=== PATIENT | male | born 1940 | race Caucasian/White ===

== ENCOUNTER → 2016-11-28 | Outpatient (CLI) | payer MEDICARE, OTHER ==
--- NOTE | 2016-11-28 11:40 | ECHOF ---
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 This was a technically good study. The left ventricular size is normal. There is borderline concentric left ventricular hypertrophy. Overall left ventricular systolic function is normal with, an EF between 60 - 65 %. The right ventricle is normal in size. The left atrium is normal in size. Normal LA size by volume 22+/-6 ml/m2. The right atrium is normal in size. The aortic valve is bicuspid. There is mild aortic valve sclerosis. There is mild aortic regurgitation. Peak/mean gradient across the Aortic Valve is 11.18mmHg / 5.21mmHg. Normal appearing mitral valve. No mitral regurgitation. Mild tricuspid regurgitation present. Right ventricular systolic pressure is normal at < 35 mmHg. Trace/mild (physiologic) pulmonic regurgitation. 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 The inferior vena cava is mildly dilated. There is no pericardial effusion. CONCLUSIONS -------- 1. Sinus rhythm. 2. There is mild aortic valve sclerosis. 3. There is mild aortic regurgitation. 4. Peak/mean gradient across the Aortic Valve is 11.18mmHg / 5.21mmHg. 5. Normal appearing mitral valve. 6. Mild tricuspid regurgitation present. 7. Right ventricular systolic pressure is normal at < 35 mmHg. 8. Trace/mild (physiologic) pulmonic regurgitation. 9. 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 10. The inferior vena cava is mildly dilated. 11. There is no pericardial effusion. 12. This was a technically good study. 13. The left ventricular size is normal. 14. There is borderline concentric left ventricular hypertrophy. 15. Overall left ventricular systolic function is normal with, an EF between 60 - 65 %. 16. The right ventricle is normal in size. 17. Normal LA size by volume 22+/-6 ml/m2. 18. The right atrium is normal in size. 19. The aortic valve is bicuspid. AREA FIELD WORKER: Malgorzata Guzman RDCS
== END | disposition home or self-care (01) ==
LOC: RADECHMAIN 08:01
PROVIDERS: ATTEND Family Medicine
DX: Q23.1 Congenital insufficiency of aortic valve (principal); I77.810 Thoracic aortic ectasia
CPT/HCPCS: 93306

== ENCOUNTER 2017-03-20 05:59 | Day surgery (SDC) | payer MEDICARE, OTHER ==
[2017-03-14 10:24] VITALS: BMI 25.7
--- NOTE | 2017-03-19 13:31 | HP ---
DATE OF ADMISSION: Surgery is 03/20/2017. Clarence Smith is a 76-year-old patient seen with progressive right shoulder pain. After having treatment options discussed, he elected to proceed with right shoulder arthroscopy. Consent was obtained. Clearance was provided by Dr. Brennan. Past medical history is noncontributory. Past surgical history is herniorrhaphy, knee arthroscopy. DAILY MEDICATIONS: Multivitamins as needed. ALLERGIES: None reported. SOCIAL HISTORY: Patient denies current tobacco use. PHYSICAL EVALUATION OF RIGHT SHOULDER: Flexion 150 degrees, abduction ( ) degrees, external rotation is 50 degrees with some weakness. There is tenderness along the anterolateral acromion and rotator cuff insertion site. Impingement sign is positive at 90 degrees. Distal neurovascular exam is intact. Radiographs of the right shoulder revealed a type II anterior acromion, evidence for acromioclavicular joint osteoarthritis and cystic changes of the greater tuberosity. An MRI of the right shoulder revealed a partial rotator cuff tear, labral tear and biceps tendinitis. IMPRESSION: Right shoulder impingement with partial rotator cuff tear, labral tear and biceps tendinitis. PLAN: Right shoulder arthroscopy with subacromial decompression, possible arthroscopic rotator cuff repair, possible biceps tendon release and debridement.
[~2017-03-20 05:59] MED LIST: FAMOTIDINE 20 MG/2 ML VIAL IV PRN; HYDROmorphone 1 MG/ML 1 ML SYRINGE IVP PRN; LACTATED RINGERS 1,000 ML IV SCH; LIDOCAINE 1% 20 ML VIAL (10MG/ML) FOR IV START INTRADERMA PRN; MIDAZOLAM 2 MG/2 ML VIAL IV PRN; ONDANSETRON 4 MG/2 ML VIAL IVP PRN; ceFAZolin 2 GM in SODIUM CHLORIDE 0.9% 100 ML IVPB ONE
[2017-03-20] MEDS ORDERED: SUCCINYLCHOLINE CHLORIDE 100 MG/5 ML SYR IV ONE (07:30)
[2017-03-20] MEDS ORDERED: ePHEDrine 50 MG/ML 1 ML AMP ONE (07:30)
[2017-03-20] MEDS ORDERED: PROPOFOL 10 MG/ML 20 ML VIAL IV ONE (07:30)
[2017-03-20] MEDS ORDERED: LIDOCAINE 2%-EPI 1:100,000 20 ML VIAL ONE (07:30)
[2017-03-20] MEDS ORDERED: LIDOCAINE 1% INJ 10MG/ML (20 ML MDV) ONE (07:30)
[2017-03-20] MEDS ORDERED: ROPIVACAINE 5 MG/ML 30 ML VIAL ONE (07:30)
[2017-03-20 09:03] VITALS: TEMP 97.2
--- NOTE | 2017-03-20 09:10 | P.OP ---
Date of Procedure: 03/20/17 Preoperative Diagnosis: Right shoulder impingement Postoperative Diagnosis: 1. Right shoulder impingement 2. Right shoulder superficial partial rotator cuff tear 3. Right shoulder acromioclavicular joint osteoarthritis 4. Right shoulder partial biceps tendon tear 5. Right shoulder superficial labral tear Procedure(s) Performed: 1. Right shoulder arthroscopic subacromial decompression 2. Right shoulder arthroscopic debridement partial rotator cuff tear 3. Right shoulder arthroscopic Kirt procedure 4. Right shoulder arthroscopic biceps tenotomy 5. Right shoulder arthroscopic debridement labral tear Implants: none Anesthesia: GETA, regional (Shoulder block) Surgeon: Sudheer Shine Egg Caser #1: Ming Huerta Estimated Blood Loss (ml): 20 Pathology: none sent Condition: stable Disposition: PACU Indications for Procedure: 76-year-old patient seen with progressive right shoulder pain. After having treatment options discussed, he elected to proceed with right shoulder arthroscopy. Operative Findings: See description of procedure Description of Procedure: Patient underwent a shoulder block by department of anesthesia. The patient was then taken to the operative suite. The patient underwent a general anesthetic by the department of anesthesia. The patient was placed into a lateral position and secured. There was appropriate padding of the bony prominence. Right shoulder was then prepped and draped in normal sterile orthopedic fashion. We placed the extremity in 10 pounds of longitudinal traction. A posterior incision was now made for a posterior working portal site. The trocar and cannula were inserted into the glenohumeral joint. Arthroscopy was initiated. Spinal needle was now inserted anteriorly, to ascertain the anterior working portal site. An incision was now made in that area, a trocar was inserted followed by a probe. There was some superficial tearing of the superior and anterior labrum. There were grade 2 chondromalacia changes of the humeral head and grade 2/3 chondral malacia changes of the glenoid fossa. Partial tearing long head biceps tendon. The posterior and inferior labrum were intact. There were no loose bodies. I debrided the labrum down to stable tissue. I performed an arthroscopic biceps tenotomy. The residual labrum was probed and found to be stable. At this point instruments removed from glenohumeral joint. Utilizing the posterior working portal site, the trocar and cannula were inserted into the subacromial space. Arthroscopy initiated. I made an incision 2 fingerbreadths lateral to the acromion. I introduced my trocar followed by my ArthroCare ablator. I now began ablating thick subacromial bursal tissue, which exposed the undersurface of the anterior acromion. This was diminished subacromial space. There was a very prominent anterior acromion. A motorized bur was introduced and a subacromial decompression was performed. I also excised some osteophytes off the inferior aspect of the distal clavicle. The AC joint was visualized and noted to be fairly arthritic. Our motorized bur was introduced in the anterior portal site and a Kirt procedure was performed without difficulty, decompressing the AC joint nicely. I turned my attention to the rotator cuff. There was some superficial tearing of the distal supraspinatus present. Utilized the motorized bur and debrided that down to stable tendon tissue. The residual area was probed and found to be stable. I did not appreciate any perforations. At this point I injected 1 mL of Allogen intra-articular and at the debrided rotator cuff site. Instruments now removed from the portal sites. All portal sites were approximated with nylon suture. Sterile dressings were applied followed by a shoulder immobilizer. Colin VANG assisted with the procedure. The patient was awakened, transferred to a bed, and taken to recovery in stable condition.
[2017-03-20 09:47] VITALS: RESP 18
[2017-03-20 10:34] VITALS: BP 126/77; PULSE 61
== END 2017-03-20 10:45 | disposition home or self-care (01) ==
LOC: OR 05:59
PROVIDERS: ATTEND Orthopaedic Surgery
DX: S43.421A Sprain of right rotator cuff capsule, initial encounter (principal); S46.111A Strain of muscle, fascia and tendon of long head of biceps, right arm, initial encounter; M19.011 Primary osteoarthritis, right shoulder; S43.491A Other sprain of right shoulder joint, initial encounter; M75.21 Bicipital tendinitis, right shoulder; M94.211 Chondromalacia, right shoulder; M25.711 Osteophyte, right shoulder; M75.41 Impingement syndrome of right shoulder; Q23.1 Congenital insufficiency of aortic valve; Z87.891 Personal history of nicotine dependence; K21.9 Gastro-esophageal reflux disease without esophagitis; Z79.899 Other long term (current) drug therapy; Z79.891 Long term (current) use of opiate analgesic; Z85.828 Personal history of other malignant neoplasm of skin; X58.XXXA Exposure to other specified factors, initial encounter
CPT/HCPCS: 64415; 29827; 29826; 29824; 23405; C1765; J2250; J0690; J2405; J2001; J2795; J0330; J2704

== ENCOUNTER → 2018-08-13 | Outpatient (CLI) | payer MEDICARE, OTHER ==
--- NOTE | 2018-08-13 14:58 | US ---
EXAMINATION TYPE: US venous doppler duplex LE LT DATE OF EXAM: 08/13/2018 2:50 PM COMPARISON: NONE CLINICAL HISTORY: M79.662 PAIN IN LT LOWER LEG. S/P lt knee replacement x 1 week ago. Baby aspirin. No hx of blood clots. SIDE PERFORMED: Left TECHNIQUE: The lower extremity deep venous system is examined utilizing real time linear array sonog marichuy with graded compression, doppler sonography and color-flow sonography. VESSELS IMAGED: External Iliac Vein (EIV) Common Femoral Vein Deep Femoral Vein Greater Saphenous Vein * Femoral Vein Popliteal Vein Small Saphenous Vein * Proximal Calf Veins (* superficial vessels) There is normal flow, compressibility, vascular waveforms. Left Leg: Negative for DVT IMPRESSION: No evident deep venous thrombosis at or above the left knee, follow-up as indicated.
== END | disposition home or self-care (01) ==
LOC: RADUSWWP 14:24
PROVIDERS: ATTEND Orthopaedic Surgery Adult Reconstructive Orthopaedic Surgery
DX: M79.662 Pain in left lower leg (principal)

== ENCOUNTER → 2018-12-18 | Outpatient (CLI) | payer MEDICARE, OTHER ==
--- NOTE | 2018-12-18 16:51 | ECHOF ---
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 This was a technically good study. The left ventricular size is normal. Left ventricular wall thickness is normal. Overall left vent ricular systolic function is normal with, an EF between 55 - 60 %. The right ventricle is normal in size. The left atrium is normal in size. The right atrium is normal in size. There is mild aortic regurgitation. Probably bicuspid aortic valve. There is trace mitral regurgitation. Trace tricuspid regurgitation present. The right ventricular systolic pressure, as measured by Dopp ler, is 22.44mmHg. Pulmonic valve appears structurally normal. 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 Normal inferior vena cava with normal inspiratory collapse consistent with estimated right atrial pre ssure of 5 mmHg. The pericardium is normal. CONCLUSIONS -------- 1. Sinus rhythm. 2. This was a technically good study. 3. The left ventricular size is normal. 4. Left ventricular wall thickness is normal. 5. Overall left ventricular systolic function is normal with, an EF between 55 - 60 %. 6. The right ventricle is normal in size. 7. The left atrium is normal in size. 8. The right atrium is normal in size. 9. There is mild aortic regurgitation. 10. Probably bicuspid aortic valve. 11. There is trace mitral regurgitation. 12. Trace tricuspid regurgitation present. 13. The right ventricular systolic pressure, as measured by Doppler, is 22.44mmHg. 14. Pulmonic valve appears structurally normal. 15. 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 16. Normal inferior vena cava with normal inspiratory collapse consistent with estimated right atrial pressure of 5 mmHg. 17. The pericardium is normal. NUT SHELLER MACHINE OPERATOR: Arlyn Groves RDCS
== END | disposition home or self-care (01) ==
LOC: RADECHMAIN 13:07
PROVIDERS: ATTEND Family Medicine
DX: Q23.1 Congenital insufficiency of aortic valve (principal)
CPT/HCPCS: 93306

== ENCOUNTER → 2019-08-05 | Outpatient (CLI) | payer MEDICARE, OTHER ==
--- NOTE | 2019-08-05 16:07 | US ---
EXAMINATION TYPE: US gallbladder DATE OF EXAM: 08/05/2019 COMPARISON: NONE CLINICAL HISTORY: K80.20 GALLSTONES. RUQ Pain. EXAM MEASUREMENTS: Liver Length: 15.6 cm Gallbladder Wall: .2 cm CBD: .5 cm Right Kidney: 9.7 x 4.6 x 4.6 cm Pancreas: Obscured by bowel gas Liver: wnl Gallbladder: Limited due to intercoastal scanning not well visualized. Evidence for sonographic Loredo's sign: No CBD: wnl Right Kidney: wnl IMPRESSION: 1. No suspicious abnormality right upper quadrant. Exam is limited due to the [id number].
== END | disposition home or self-care (01) ==
LOC: RADUSWWP 13:30
PROVIDERS: ATTEND Surgery Plastic and Reconstructive Surgery
DX: K80.20 Calculus of gallbladder without cholecystitis without obstruction (principal)
CPT/HCPCS: 76705

== ENCOUNTER → 2019-09-07 | Outpatient (CLI) | payer MEDICARE, OTHER ==
[2019-09-07 07:37] LABS: African American GFR (CKD) >90 (>60 ml/min/1.73 sqM); Blood Urea Nitrogen 19 mg/dL (9-20)
--- NOTE | 2019-09-07 09:44 | CT ---
EXAMINATION TYPE: CT abdomen pelvis w con DATE OF EXAM: 09/07/2019 COMPARISON: Gallbladder ultrasound dated 08/05/2019. CT abdomen pelvis dated 09/14/2014 HISTORY: epigastric to periumbilical pain CT DLP: 583.1 mGycm Automated exposure control for dose reduction was used. TECHNIQUE: Helical acquisition of images was performed from the lung bases through the pelvis. CONTRAST: Performed with Oral Contrast and with IV Contrast, patient injected with 100 mL of Isovue 300. FINDINGS: LUNG BASES: Bibasilar subsegmental dependent atelectasis and multifocal pleural parenchymal scarring. Slight nodular aspect of the left pleural parenchymal scarring and series 4 image 12. This has sligh tly enlarged in the interim in comparison to exam of 09/14/2014 where this measured 4 mm. LIVER/GB: Hepatic parenchyma is diffusely hypoattenuated in comparison to that of the spleen, most co mmonly seen in hepatic steatosis. This finding limits evaluation for hepatic masses. No gross evidenc e of hepatic mass is seen. No intrahepatic biliary ductal dilatation. No cholelithiasis on CT. PANCREAS: Punctate calcification in the pancreatic tail is most commonly on the basis of chronic panc reatitis. No. Pancreatic fat stranding to suggest acute pancreatitis. SPLEEN: Punctate benign calcified granuloma the spleen. ADRENALS: No significant abnormality is seen. KIDNEYS: Cortically based 4.2 cm left midpole renal cyst is benign and fluid attenuated. Numerous skylar al sinus cysts bilaterally are confirmed on delayed imaging. No hydronephrosis of either kidney. 6 mm left lower pole cortical cyst is also seen. 8mm hypoattenuated right lower pole renal lesion does no t measure fluid attenuation of a simple cyst, likely secondary to its close proximity with an adjacen t calyx. This appears smaller than the prior exam of 2013. Overall there are 3 right lower pole too s mall to accurately characterize renal lesions. FREE AIR: No free air is visualized. ADENOPATHY: No greater than 1 cm short axis lymph node is seen in the abdomen nor pelvis. REPRODUCTIVE ORGANS: Prostate gland is heterogenous containing central zone calcifications and enlarg ed measuring 5.1 cm in transverse dimension. OSSEOUS STRUCTURES: Advanced degenerative changes of the hips are seen with joint space narrowing, o pposing surface sclerosis, subchondral cyst formation and osteophytes. There is a very mild dextrosco liosis of the lumbar spine. Minimal grade 1 anterolisthesis of L5 on S1 is likely due to facet hypert rophy is no pars interarticularis defects are seen. Schmorl's node of the inferior endplate of L4. Mo derate degenerative changes of the lumbar spine. BOWEL: Small hiatal hernia. Scattered colonic diverticula are seen without pericolonic fat stranding . These predominate in the sigmoid colon. Moderate degree colonic fecal stasis. Contrast extends to t he splenic flexure. No dilated large or small bowel. OTHER: Moderate atherosclerosis of the abdominal aorta and its branches. Inguinal rings are patulous and fat filled with low-lying loops of bowel in the pelvis. IMPRESSION: 1. SIGMOID DIVERTICULOSIS WITHOUT EVIDENCE OF ACUTE DIVERTICULITIS. MODERATE DEGREE COLONIC FECAL STA SIS. 2. SMALL HIATAL HERNIA. 3. SLIGHT INCREASE IN NODULARITY OF AN AREA OF PLEURAL PARENCHYMAL SCARRING AT THE LEFT LUNG BASE CUR RENTLY MEASURING 6 MM AND MEASURING 4 MM ON THE EXAM OF 2013. GIVEN THE SLOW INTERVAL GROWTH THIS IS FAVORED TO BE BENIGN. 4. MULTIPLE BENIGN BILATERAL RENAL CYSTS AND RENAL SINUS CYSTS WITH FEW TOO SMALL TO ACCURATELY FABIENNE CTERIZE RIGHT LOWER POLE SUBCENTIMETER RENAL LESIONS. 5. HEPATIC STEATOSIS.
== END | disposition home or self-care (01) ==
LOC: RADCTMAIN 06:57
PROVIDERS: ATTEND Surgery Plastic and Reconstructive Surgery
DX: K57.30 Diverticulosis of large intestine without perforation or abscess without bleeding (principal); K44.9 Diaphragmatic hernia without obstruction or gangrene; N28.1 Cyst of kidney, acquired; K76.0 Fatty (change of) liver, not elsewhere classified; K59.8 Other specified functional intestinal disorders
CPT/HCPCS: 82565; 84520; 74177; 36415; Q9967

== ENCOUNTER 2019-09-16 09:00 | Day surgery (SDC) | payer MEDICARE, OTHER ==
[2019-09-14 08:41] VITALS: BMI 26.4
--- NOTE | 2019-09-16 07:59 | P.GSHP ---
History of Present Illness H&P Date: 09/16/19 CHIEF COMPLAINT: GERD HISTORY OF PRESENT ILLNESS: The patient is a 78-year-old male who presents reports gastroesophageal reflux disease. Upper endoscopy was offered for further evaluation and management. PAST MEDICAL HISTORY: Please see list. PAST SURGICAL HISTORY: Please see list. MEDICATIONS: Please see list. ALLERGIES: Please see list. SOCIAL HISTORY: No illicit drug use FAMILY HISTORY: No reports of Crohn disease or ulcerative colitis. REVIEW OF ORGAN SYSTEMS: CONSTITUTIONAL: No reports of fevers or chills. GI: Denies any blood in stools or constipation. PHYSICAL EXAM: VITAL SIGNS: Stable GENERAL: Well-developed and pleasant in no acute distress. HEENT: No scleral icterus. Extraocular movements grossly intact. Moist buccal mucosa. NECK: Supple without lymphadenopathy. CHEST: Unlabored respirations. Equal bilateral excursions. CARDIOVASCULAR: Regular rate and rhythm. Distal 2+ pulses. ABDOMEN: Soft, nondistended. MUSCULOSKELETAL: No clubbing, cyanosis, or edema. ASSESSMENT: 1. Gastroesophageal reflux disease PLAN: 1. Recommend proceeding with an upper endoscopy Past Medical History Past Medical History: Cancer, GERD/Reflux Additional Past Medical History / Comment(s): having stomach "issues" elevated pressures in eye, hx of skin cancer History of Any Multi-Drug Resistant Organisms: None Reported Past Surgical History: Hernia Repair, Joint Replacement, Orthopedic Surgery Additional Past Surgical History / Comment(s): left knee scope x3, and left knee replacement, sx on clavicle Past Anesthesia/Blood Transfusion Reactions: No Reported Reaction Past Psychological History: No Psychological Hx Reported Smoking Status: Former smoker Past Alcohol Use History: Rare Additional Past Alcohol Use History / Comment(s): smoked from 1959- Past Drug Use History: None Reported Medications and Allergies Home Medications Medication Instructions Recorded Confirmed Type Butalb/APAP/Caff 50-325-40Mg 1 tab PO QID PRN 03/14/17 09/14/19 History [Fioricet 50-325-40] Latanoprost Ophth [Xalatan 0.005%] 1 drop BOTH EYES HS 03/14/17 09/14/19 History Omeprazole 1 tab PO DAILY 09/14/19 History Allergies Allergy/AdvReac Type Severity Reaction Status Date / Time No Known Allergies Allergy Verified 09/14/19 08:41
[2019-09-16 09:21] VITALS: RESP 16; TEMP 98.1
[2019-09-16] MEDS ORDERED: LIDOCAINE 1% 20 ML VIAL (10MG/ML) FOR IV START INTRADERMA ONE (09:21)
[2019-09-16] MEDS: LACTATED RINGERS 1,000 ML IV SCH ×2 (09:21→09:37)
[2019-09-16] MEDS ORDERED: PROPOFOL 10 MG/ML 20 ML VIAL IV ONE (09:39)
[2019-09-16] MEDS ORDERED: LIDOCAINE 1% INJ 10MG/ML (20 ML MDV) ONE (09:39)
--- NOTE | 2019-09-16 09:50 | P.PCN ---
Date of Procedure: 09/16/19 Description of Procedure: PREOPERATIVE DIAGNOSIS: Gastroesophageal reflux disease. Epigastric abdominal pain POSTOPERATIVE DIAGNOSIS: Gastroesophageal reflux disease. Epigastric abdominal pain Diaphragmatic hiatal hernia OPERATION: Esophagogastroduodenoscopy with biopsies along antrum. SURGEON: Yudelka Muro MD ANESTHESIA: MAC. INDICATIONS: The patient is a 78-year-old male who presents with a history of reflux disease. Benefits and risks of the procedure were described. Informed consent was obtained. DESCRIPTION: The patient was brought into the endoscopy suite and laid in the left lateral decubitus position. An Olympus gastroscope was passed along the posterior oropharynx down to the distal esophagus where the squamocolumnar junction was encountered at 35 cm from the incisors. The stomach was entered and no bile reflux was found. Additional findings are listed below. Biopsies with cold forceps were obtained of the antrum. The first through third portion of the duodenum was examined and unremarkable. Retroflexion of the scope confirmed Hill grade 2 lower esophageal valve. The squamocolumnar junction demonstrated LA grade A erosive esophagitis. The stomach was desufflated. The patient tolerated the procedure well. FINDINGS: Squamocolumnar junction 35 cm from the incisors. Diaphragmatic hiatus at 40 cm. Hiatal hernia, 5 cm Hill grade 2 lower esophageal valve. LA grade A erosive esophagitis. No active duodenitis. Chronic gastritis RECOMMENDATIONS: Upper endoscopy as needed. Plan - Discharge Summary Discharge Rx Participant: No New Discharge Prescriptions: No Action Latanoprost Ophth [Xalatan 0.005%] 1 drop BOTH EYES HS Butalb/APAP/Caff 50-325-40Mg [Fioricet 50-325-40] 1 tab PO QID PRN PRN Reason: Migraine Headache Omeprazole 1 tab PO DAILY Discharge Medication List Butalb/APAP/Caff 50-325-40Mg [Fioricet 50-325-40] 1 tab PO QID PRN 03/14/17 [History] Latanoprost Ophth [Xalatan 0.005%] 1 drop BOTH EYES HS 03/14/17 [History] Omeprazole 1 tab PO DAILY 09/14/19 [History] Follow up Appointment(s)/Referral(s): Yudelka Muro MD [STAFF PHYSICIAN] - 10/06/19 Patient Instructions/Handouts: Hiatal Hernia (DC) Discharge Disposition: HOME SELF-CARE
[2019-09-16 10:15] VITALS: BP 110/72; PULSE 55
== END 2019-09-16 10:31 | disposition home or self-care (01) ==
LOC: ORWHC2ENDO 09:00
PROVIDERS: ATTEND Surgery Plastic and Reconstructive Surgery
DX: K21.0 Gastro-esophageal reflux disease with esophagitis (principal); K44.9 Diaphragmatic hernia without obstruction or gangrene; K29.50 Unspecified chronic gastritis without bleeding; Z85.828 Personal history of other malignant neoplasm of skin; Z87.19 Personal history of other diseases of the digestive system; Z98.890 Other specified postprocedural states; Z96.652 Presence of left artificial knee joint; Z87.891 Personal history of nicotine dependence; Z79.899 Other long term (current) drug therapy; Z79.891 Long term (current) use of opiate analgesic
CPT/HCPCS: 43239; J2001; J2704; 88305

== ENCOUNTER → 2019-12-08 | Outpatient (CLI) | payer MEDICARE, OTHER ==
--- NOTE | 2019-12-09 10:29 | ECHOF ---
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 This was a technically adequate study. There is mild concentric left ventricular hypertrophy. Overall left ventricular systolic function i s normal with, an EF between 55 - 60 %. The diastolic filling pattern is normal for the age of the patient 11.40. The right ventricle is normal in size. Normal LA size by volume 22+/-6 ml/m2. The right atrial size is normal. Interatrial and interventricular septum intact. There is mild aortic valve sclerosis. There is mild aortic regurgitation. There is no evidence of aortic stenosis. AOV is possible Bicuspid. Mild mitral annular calcification present. Mild mitral regurgitation is present. Mild tricuspid regurgitation present. There is no evidence of pulmonary hypertension. The right v entricular systolic pressure, as measured by Doppler, is 30.67mmHg. Trace/mild (physiologic) pulmonic regurgitation. The aortic root is moderately dilated. 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 Normal inferior vena cava with normal inspiratory collapse consistent with estimated right atrial pre ssure of 5 mmHg. There is no pericardial effusion. CONCLUSIONS -------- 1. Sinus rhythm. 2. This was a technically adequate study. 3. There is mild concentric left ventricular hypertrophy. 4. Overall left ventricular systolic function is normal with, an EF between 55 - 60 %. 5. The diastolic filling pattern is normal for the age of the patient 11.40 6. The right ventricle is normal in size. 7. Normal LA size by volume 22+/-6 ml/m2. 8. The right atrial size is normal. 9. Interatrial and interventricular septum intact. 10. There is mild aortic valve sclerosis. 11. There is mild aortic regurgitation. 12. There is no evidence of aortic stenosis. 13. AOV is possible Bicuspid. 14. Mild mitral annular calcification present. 15. Mild mitral regurgitation is present. 16. Mild tricuspid regurgitation present. 17. There is no evidence of pulmonary hypertension. 18. The right ventricular systolic pressure, as measured by Doppler, is 30.67mmHg. 19. Trace/mild (physiologic) pulmonic regurgitation. 20. The aortic root is moderately dilated. 21. 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 22. Normal inferior vena cava with normal inspiratory collapse consistent with estimated right atrial pressure of 5 mmHg. 23. There is no pericardial effusion. CNC MAINTENANCE TECHNICIAN: Henrietta Stahl RDCS
== END | disposition home or self-care (01) ==
LOC: RADECHMAIN 11:54
PROVIDERS: ATTEND Family Medicine
DX: I08.3 Combined rheumatic disorders of mitral, aortic and tricuspid valves (principal)
CPT/HCPCS: 93306

== ENCOUNTER → 2020-04-26 | Outpatient (CLI) | payer MEDICARE, OTHER ==
[2020-04-26 10:33] LABS: HCT 47.5 % (39.0-53.0); HGB 16.4 gm/dL (13.0-17.5); MCH 33.7 pg (25.0-35.0); MCHC 34.6 g/dL (31.0-37.0); MCV 97.6 fL (80.0-100.0); Mean Platelet Volume 7.3; Platelet Count 168 k/uL (150-450); RBC 4.87 m/uL (4.30-5.90); RDW 12.4 % (11.5-15.5); WBC 5.2 k/uL (3.8-10.6)
[2020-04-26 10:38] LABS: ALT 22 U/L (4-49); AST 27 U/L (17-59); African American GFR (CKD) >90 (>60 ml/min/1.73 sqM); Alkaline Phosphatase 92 U/L (38-126); Anion Gap 5 mmol/L; Blood Urea Nitrogen 17 mg/dL (9-20); Calcium 9.4 mg/dL (8.4-10.2); Carbon Dioxide 26 mmol/L (22-30); Chloride 106 mmol/L (98-107); Glucose 129 mg/dL (74-99); Non-African American GFR(CKD) 88 (>60 ml/min/1.73 sqM); Potassium 4.2 mmol/L (3.5-5.1); Sodium 137 mmol/L (137-145); Total Bilirubin 0.9 mg/dL (0.2-1.3); Total Protein 6.5 g/dL (6.3-8.2)
[2020-04-26 10:39] LABS: Appearance,Urine Clear (Clear); Bilirubin,Urine Negative (Negative); Blood,Urine Negative (Negative); Color,Urine Light Yellow; Glucose,Urine (UA) Negative (Negative); Ketones,Urine Negative (Negative); Leukocyte Esterase,Urine Negative (Negative); Nitrite,Urine Negative (Negative); Protein,Urine Negative (Negative); Specific Gravity,Urine 1.006 (1.001-1.035); Urobilinogen,Urine <2.0 mg/dL (<2.0)
[2020-04-26 10:54] LABS: INR 1.1 (<1.2); Partial Thromboplastin Time 23.5 sec (22.0-30.0); Prothrombin Time 10.9 sec (9.0-12.0)
== END | disposition home or self-care (01) ==
LOC: LABPAT 08:56
PROVIDERS: ATTEND Orthopaedic Surgery
DX: Z01.818 Encounter for other preprocedural examination (principal); Z01.812 Encounter for preprocedural laboratory examination; M16.12 Unilateral primary osteoarthritis, left hip; Z79.01 Long term (current) use of anticoagulants
CPT/HCPCS: 36415; 80053; 81003; 85027; 85610; 85730; 87070; 93005

== ENCOUNTER 2020-05-03 11:34 | Day surgery (SDC) | payer MEDICARE, OTHER ==
[2020-04-29 10:12] VITALS: BMI 26.1
[~2020-05-03 11:34] MED LIST changes: +ACETAMINOPHEN TAB 500 MG TAB PO ONE; +DEXAMETHASONE SOD PHOSPHATE 10 MG/ML 1 ML VIAL IV ONE; -FAMOTIDINE 20 MG/2 ML VIAL IV PRN; +GABAPENTIN 300 MG CAP PO ONE; +HYDROmorphone 0.5 MG/0.5 ML SYRINGE IVP PRN; -HYDROmorphone 1 MG/ML 1 ML SYRINGE IVP PRN; -LACTATED RINGERS 1,000 ML IV SCH; -LIDOCAINE 1% 20 ML VIAL (10MG/ML) FOR IV START INTRADERMA PRN; +MELOXICAM 7.5 MG TAB PO ONE; +ONDANSETRON 4 MG/2 ML VIAL IVP ONE; -ONDANSETRON 4 MG/2 ML VIAL IVP PRN; +TRANEXAMIC ACID 1,000 MG in SODIUM CHLORIDE 0.9% 100 ML IVPB ONE; -ceFAZolin 2 GM in SODIUM CHLORIDE 0.9% 100 ML IVPB ONE
[2020-05-03] MEDS ORDERED: ONDANSETRON 4 MG/2 ML VIAL ONE (12:03)
[2020-05-03] MEDS ORDERED: ACETAMINOPHEN TAB 500 MG TAB ONE (12:04)
[2020-05-03] MEDS ORDERED: LIDOCAINE 1% (10MG/ML) FOR IV START INTRADERMA ONE (12:15)
[2020-05-03] MEDS: LACTATED RINGERS 1,000 ML IV SCH (12:15)
[2020-05-03] MEDS ORDERED: SODIUM CHLORIDE 0.9% 100 ML BAG ONE (12:45)
[2020-05-03] MEDS ORDERED: fentaNYL (PF) 50 MCG/ML 2 ML AMP ONE (12:45)
[2020-05-03] MEDS ORDERED: PROPOFOL 10 MG/ML 20 ML VIAL IV ONE (12:45)
[2020-05-03] MEDS ORDERED: HEPARIN SODIUM,PORCINE 10,000 UNIT/ML 1 ML VIAL ONE (12:45)
[2020-05-03] MEDS ORDERED: TRANEXAMIC ACID 1,000 MG/10 ML VIAL ONE (12:45)
[2020-05-03] MEDS ORDERED: MIDAZOLAM 2 MG/2 ML VIAL ONE (12:45)
[2020-05-03] MEDS ORDERED: SODIUM CHLORIDE 0.9% IRRIG 1,000 ML BTL IRRIGATION ONE (12:45)
[2020-05-03] MEDS ORDERED: ceFAZolin 3,000 MG in SODIUM CHLORIDE 0.9% IRRIGATIO 3,000 ML IRRIGATION ONE (12:51)
[2020-05-03] MEDS: ROPIVACAINE 246.25 MG, EPINEPHrine 0.5 MG, KETOROLAC 30 MG, cloNIDine HCL/PF 80 MCG, WA... MISCELLANE ONE ×10 (13:14→14:05)
--- NOTE | 2020-05-03 14:23 | P.OP ---
Date of Procedure: 05/03/20 Preoperative Diagnosis: Severe osteoarthritis left hip Postoperative Diagnosis: Severe osteoarthritis left hip Procedure(s) Performed: Left total hip arthroplasty with a direct anterior approach Implants: Galloway and nephew Polarstem size 6 standard Galloway [employer] Nephew R3, 3 hole acetabular shell, 534 mm Galloway [employer] Nephew reflection 6.5 mm cancellus screw, 20 mm 2 Galloway [employer] Nephew R3, XLPE 20 acetabular liner Galloway [employer] Nephew Oxinium femoral head 36 m, +8 All components were press-fit. The articulation is Oxinium on polyethylene. Anesthesia: spinal Surgeon: Christopher Lu Stone Layout Marker #1: Chey Almanza Estimated Blood Loss (ml): 300 (135 mL returned with Cell Saver) Pathology: other (Femoral head) Condition: stable Disposition: PACU Indications for Procedure: After failure of conservative treatment we discussed the surgical and nonsurgical treatment options at length. Patient wishes to proceed with a total hip arthroplasty with a direct anterior approach. Complications specific to this procedure were discussed at length, including but not limited to infection, leg length discrepancy, dislocation, and nerve injury. Covid-19 was also discussed at length with the patient, and they are aware of the current policies and procedures. The patient was given the option of delaying surgery, but they elect to proceed knowing these risks. Patient is aware of all these complications and informed consent was obtained Operative Findings: The operative findings are consistent with severe osteoarthritis of the left hip Description of Procedure: Patient was seen and evaluated in the preoperative area, consent was reviewed, and the surgical site was marked with a skin marker. Patient was then brought to the operating room and given prophylactic antibiotics intravenously. 1 g of Tranexamic acid was also given. A spinal anesthetic was administered by the anesthesia department. The patient was then placed on the Humble table with the bony prominences well-padded. The hip area was then prepped and draped in usual sterile fashion. A universal timeout was then performed, which confirmed the patient's name, surgical site, ALLERGIES, and procedure being performed. Next the incision site was located at 1 cm distal and 1 cm lateral to the anterior superior iliac spine. The skin and subcutaneous tissues were sharply incised. Incision was carefully dissected down to the fascia overlying the tensor fascia osmany muscle. This fascia was then incised in line with the incision. Next, using blunt finger dissection, the tensor fascia osmany muscle was dissected off its investing fascia. The muscle was then carefully retracted laterally with a cobra retractor over the lateral neck of the femur. Next, the circumflex vessels were identified and cauterized using the AquaMantis device. The anterior hip capsule was then exposed. The capsule was then opened and an inverted T fashion. Cobra retractors were then placed intracapsularly. The proximal femur was then visualized. The femoral neck was then osteotomized appropriate level above the lesser trochanter. Small amount of traction was placed with the Humble table. A small wedge of bone was then removed from the remaining femoral head. Next, using a corkscrew femoral head was easily removed from the acetabulum. On gross visual inspection, the femoral head had complete loss of articular cartilage in multiple periarticular osteophytes. Attention was then turned to the acetabulum. the acetabulum was exposed and any remaining labrum was excised. Sequential reaming of the acetabulum was performed using fluoroscopic guidance. When the appropriate size was reached, a trial was then placed. The position and fit of the trial was checked with fluoroscopy. The trial was then removed. Then, using fluoroscopic guidance, the final implant was impacted at 20 of anteversion and 40 of abduction, and fully seated in the acetabulum. 2 screws were then placed in the acetabulum. Again fluoroscopy was used to check position of the screws. Next, the liner was then impacted, with a 20 elevated liner located in the anterior superior quadrant. Component locking was confirmed. Attention was then directed to the femur. With the aid of the Humble table, the femur was externally rotated to approximately 130, extended, and abducted under the opposite leg. A side hook was then placed under the proximal femur, and the side hook elevator was used to elevate the proximal femur. Retractors were then placed. A capsular release was performed, as well as a release of the conjoined tendon, which afforded excellent visualization of the proximal femur. Next, a box osteotome was used to lateralize the proximal femur. A hand sewer was then used to locate the femoral canal. Sequential broaching was then performed with appropriate size which afforded excellent fixation in the proximal femur. A trial was then placed with appropriate head and neck, and the hip was gently reduced with the aid of the Humble table. Fluoroscopy was then used to check position of the components, as well as to ensure equal leg lengths. The hip was then gently dislocated and the trials were then removed. Final implants were then impacted and the hip was again reduced. Final fluoroscopic x-rays confirmed that the components were in anatomic position, as well as equal leg lengths. The hip was also taken through range of motion, and found to be stable. The hip was then copiously irrigated with antibiotic solution with pulsatile lavage. The hip was then irrigated with Irrisept solution. The soft tissues were then injected with a ropivacaine solution, which consisted of 246.25 mg of ropivacaine, 0.5 mg of epinephrine, 30 mg of Toradol, 80 g of clonidine, and 48.45 mL of sterile water, for a total of 100 mL of fluid injected. A second dose of 1 g of Tranexamic acid was also given. the fascia was then closed with 2-0 strata fix suture. The subcutaneous tissue was closed with 3-0 Vicryl. The subcuticular tissue was closed with 3-0 strata fix suture. The skin was then closed with Dermabond glue and a sterile silver dressing. The patient was then transferred to the recovery room in stable condition. The melter assistant CIERA Coulter was required due to the complexity of surgery, and the need for skilled certified ophthalmic surgical assistant for positioning, draping, exposure, retraction, and closure of the wound.
[2020-05-03] MEDS ORDERED: LACTATED RINGERS 1,000 ML IV ONE (14:36)
[2020-05-03] MEDS ORDERED: MAGNESIUM HYDROXIDE 2,400 MG/10 ML CUP PO PRN (14:39)
[2020-05-03] MEDS ORDERED: ONDANSETRON 4 MG/2 ML VIAL IVP PRN (14:39)
[2020-05-03] MEDS ORDERED: HYDROmorphone 0.5 MG/0.5 ML SYRINGE IVP PRN ×3 (14:39)
[2020-05-03] MEDS ORDERED: NALOXONE 0.4 MG/ML 1 ML VIAL IV PRN (14:39)
--- NOTE | 2020-05-03 15:08 | XR ---
Left hip Limited HISTORY: Status post left hip arthroplasty Single frontal view of the left hip. There is lucency in the soft tissues. Patient is status post left hip arthroplasty. There is anatomic alignment. IMPRESSION: Orthopedic follow-up.
--- NOTE | 2020-05-03 15:11 | XR ---
Limited left hip HISTORY: Anterior hip replacement 2 views of the left hip document the procedure.
--- NOTE | 2020-05-03 15:12 | FL ---
Fluoroscopy HISTORY: Anterior hip replacement 52 seconds fluoroscopy time supplied to the referring clinician. 1 intraoperative C-arm images docum ent the procedure. See dictated report from orthopedic surgery.
[2020-05-03] MEDS: SODIUM CHLORIDE 0.9% 1,000 ML IV SCH (16:13)
[2020-05-03] MEDS: HYDROcodone/APAP 5-325MG 1 EACH TAB PO PRN (20:07)
[2020-05-03] MEDS: SENNOSIDES-DOCUSATE SODIUM 1 EACH TAB PO SCH (20:09)
[2020-05-03] MEDS: ASPIRIN 325 MG TAB PO SCH (20:09)
[2020-05-03] MEDS ORDERED: SODIUM CHLORIDE 0.9% 500 ML 500 ML IV ONE (21:07)
[2020-05-03 21:20] LABS: Glucose,Whole Blood 178 mg/dL (75-99)
[2020-05-03 21:41] LABS: Basophils % (A) 0 %; Eosinophils # (A) 0.1 k/uL (0-0.7); Eosinophils % (A) 0 %; HCT 39.8 % (39.0-53.0); HGB 13.9 gm/dL (13.0-17.5); Lymphocytes # (A) 0.7 k/uL (1.0-4.8); Lymphocytes % (A) 5 %; MCH 34.1 pg (25.0-35.0); MCHC 34.8 g/dL (31.0-37.0); Mean Platelet Volume 9.1; Monocytes # (A) 0.8 k/uL (0-1.0); Monocytes % (A) 5 %; Neutrophils # (A) 13.2 k/uL (1.3-7.7); Neutrophils % (A) 89 %; Platelet Count 152 k/uL (150-450); RBC 4.06 m/uL (4.30-5.90); RDW 12.5 % (11.5-15.5); WBC 14.8 k/uL (3.8-10.6)
[2020-05-03 22:01] LABS: African American GFR (CKD) >90 (>60 ml/min/1.73 sqM); Anion Gap 7 mmol/L; Blood Urea Nitrogen 18 mg/dL (9-20); Calcium 8.4 mg/dL (8.4-10.2); Carbon Dioxide 23 mmol/L (22-30); Chloride 104 mmol/L (98-107); Glucose 161 mg/dL (74-99); Non-African American GFR(CKD) 81 (>60 ml/min/1.73 sqM); Potassium 4.3 mmol/L (3.5-5.1); Sodium 134 mmol/L (137-145)
--- NOTE | 2020-05-03 22:05 | XR ---
EXAMINATION TYPE: XR chest 1V portable DATE OF EXAM: 05/03/2020 COMPARISON: 02/02/2014 INDICATION: Respiratory distress TECHNIQUE: Single frontal view of the chest is obtained. FINDINGS: The heart size is normal. The pulmonary vasculature is normal. The lungs are clear. IMPRESSION: 1. No acute pulmonary process.
--- NOTE | 2020-05-03 22:26 | P.CONS ---
History of Present Illness - History of Present Illness this is a pleasant 79 yo M with past medical history of COPD and osteoarthritis, hearing difficulty, haital hernia, who presents for elective left hip arthroplasty by orthopedic team for his sever osteoarthritis team. today is post op day #0, pt is lying in bed not in distress, pain is controlled pt denies chest pain , no dyspnea , no dysuria or urinary complaint, he did not have bowel movement yet vitals are stable labs showing mild leukocytosis of 14.8K and chest xray is negative for acute process as per radiologist Review of Systems CONSTITUTIONAL: No fever, no malaise, no fatigue. HEENT: No recent visual problems or hearing problems. Denied any sore throat. CARDIOVASCULAR: No orthopnea, PND, no palpitations, no syncope. PULMONARY: No shortness of breath, no cough, no hemoptysis. GASTROINTESTINAL: No diarrhea, no nausea, no vomiting, no abdominal pain. Normoactive bowel sounds. NEUROLOGICAL: No headaches, no weakness, no numbness. HEMATOLOGICAL: Denies any bleeding or petechiae. GENITOURINARY: Denies any burning micturition, frequency, or urgency. MUSCULOSKELETAL/RHEUMATOLOGICAL: Denies any joint pain, swelling, or any muscle pain. ENDOCRINE: Denies any polyuria or polydipsia. Past Medical History Past Medical History: Cancer, COPD, Eye Disorder, Hearing Disorder / Deafness, Osteoarthritis (OA), Prostate Disorder Additional Past Medical History / Comment(s): "Born with Aortic bicuspid valve," valve regurgitation being monitored. Hx whooping cough as child. "Scarring of lungs, sl COPD." Hx skin cancer. Elevated pressure in eyes. Hiatal hernia. BPH. History of Any Multi-Drug Resistant Organisms: None Reported Past Surgical History: Hernia Repair, Joint Replacement Additional Past Surgical History / Comment(s): Arthroscopic knee surgeriesx4. Tyrone ing hernia; repair of mesh later. Fx Lt Clavicle surg. Rt rotator cuff surg. Total Lt knee. total left hip. Past Anesthesia/Blood Transfusion Reactions: No Reported Reaction Past Psychological History: No Psychological Hx Reported Smoking Status: Former smoker Past Alcohol Use History: Rare Additional Past Alcohol Use History / Comment(s): Smoked 1959-. Past Drug Use History: None Reported - Past Family History Mother Family Medical History: No Reported History Medications and Allergies Home Medications Medication Instructions Recorded Confirmed Type Butalb/APAP/Caff 50-325-40Mg 1 tab PO QID PRN 03/14/17 04/28/20 History [Fioricet 50-325-40] Latanoprost Ophth [Xalatan 0.005%] 1 drop BOTH EYES HS 03/14/17 04/28/20 History B Complex-Vit C-Vit E-Zinc [Z-Bec] 1 tab PO DAILY 04/28/20 04/28/20 History Calcium Carbonate [Tums] 500 - 1,000 mg PO QID PRN 04/28/20 04/28/20 History Cider Vinegar [Apple Cider Vinegar] 1,200 mg PO DAILY 04/28/20 04/28/20 History Cinnamon Bark [Cinnamon] 2,000 mg PO DAILY 04/28/20 04/28/20 History Flaxseed Oil 1,200 mg PO DAILY 04/28/20 04/28/20 History Soy Lethicin 1,200 mg PO DAILY 04/28/20 History Turmeric Root Extract [Turmeric] 500 mg PO DAILY 04/28/20 04/28/20 History Allergies Allergy/AdvReac Type Severity Reaction Status Date / Time No Known Allergies Allergy Verified 04/28/20 13:12 Physical Exam Vitals: Vital Signs Temp Pulse Resp BP Pulse Ox 05/03/20 17:50 85 125/81 95 05/03/20 17:35 66 131/80 96 05/03/20 17:20 60 117/72 96 05/03/20 17:05 68 134/73 94 L 05/03/20 16:50 77 114/76 95 05/03/20 16:35 68 114/70 96 05/03/20 16:20 52 L 107/68 97 05/03/20 15:59 98.0 F 57 L 16 110/70 96 05/03/20 15:30 52 L 16 115/61 95 05/03/20 15:15 51 L 16 114/58 96 05/03/20 15:00 56 L 16 111/59 98 05/03/20 14:55 52 L 16 106/57 100 05/03/20 14:42 96.8 F L 58 L 16 108/58 99 05/03/20 12:15 98.7 F 63 16 129/79 96 Intake and Output 05/03/20 05/03/20 05/03/20 06:59 14:59 22:59 Intake Total 1351 Output Total 300 Balance 1051 Intake: IV 1351 Output: Estimated Blood Loss 300 Other: Weight 79.6 kg GENERAL: The patient is alert and oriented x3, not in any acute distress. Well developed, well nourished. HEENT: Pupils are round and equally reacting to light. EOMI. No scleral icterus. No conjunctival pallor. Normocephalic, atraumatic. No pharyngeal erythema. No thyromegaly. CARDIOVASCULAR: S1 and S2 present. No murmurs, rubs, or gallops. PULMONARY: Chest is clear to auscultation, no wheezing or crackles. ABDOMEN: Soft, nontender, nondistended, normoactive bowel sounds. No palpable organomegaly. MUSCULOSKELETAL: No joint swelling or deformity. -EXTREMITIES: No cyanosis, clubbing, or pedal edema. left hip surgical site looks closed and dry , dressing is in place NEUROLOGICAL: Gross neurological examination did not reveal any focal deficits. SKIN: No rashes. Results CBC & Chem 7: 05/03/20 21:33 05/03/20 21:33 Assessment and Plan Assessment: sever primary osteoarthritis of the left hip status post left total hip arthroplasty leukocytosis , mostly reactive from surgery , no need for antibiotics as there is no clear evidence of infection COPD, not an active issue hearing difficulty haital hernia Plan: this is a pleasant 85 yo M who presents for Left hip arthroplasty , monitor WBC closely pain management and DVT prophylaxis as per primary surgery team Labs and medication were reviewed.. Continue same treatment. Continue with symptomatic treatment. Resume home medication. Monitor lytes and vitals. DVT and GI prophylaxis. Further recommendations of the clinical course of the patient DVT prophylaxis: on aspirin BID per surgery team GI Prophylaxis: Pepcid we recommend pt follows up with his pcp in one week after discharge thank you for consulting up
[2020-05-04 07:42] LABS: Basophils % (A) 0 %; Eosinophils # (A) 0.1 k/uL (0-0.7); Eosinophils % (A) 1 %; HCT 37.9 % (39.0-53.0); HGB 13.4 gm/dL (13.0-17.5); Lymphocytes % (A) 8 %; MCH 34.5 pg (25.0-35.0); MCHC 35.3 g/dL (31.0-37.0); MCV 97.8 fL (80.0-100.0); Mean Platelet Volume 7.5; Monocytes # (A) 0.9 k/uL (0-1.0); Monocytes % (A) 7 %; Neutrophils # (A) 10.6 k/uL (1.3-7.7); Neutrophils % (A) 83 %; Platelet Count 151 k/uL (150-450); RBC 3.87 m/uL (4.30-5.90); RDW 12.7 % (11.5-15.5); WBC 12.7 k/uL (3.8-10.6)
[2020-05-04] MEDS: FAMOTIDINE 20 MG TAB PO SCH (09:08)
[2020-05-04] MEDS: ASPIRIN 325 MG TAB PO SCH ×2 (09:08→20:12)
[2020-05-04] MEDS: MELOXICAM 7.5 MG TAB PO SCH (09:08)
--- NOTE | 2020-05-04 09:38 | P.DS ---
Providers Expected date of discharge: 05/04/20 Attending physician: Christopher Lu Consults: 05/03/20 14:39 Consult Physician Routine Consulting Provider: Isabella Styles Consult Reason/Comments: medical management Do you want consulting provider notified?: Yes Primary care physician: Sony Brennan - Discharge Diagnosis(es) (1) S/P total hip arthroplasty Current Visit: Yes Status: Acute (2) Osteoarthritis of left hip Current Visit: Yes Status: Acute Hospital Course: This is a 79-year-old male with known history of degenerative arthritis of the left hip. The patient presents for evaluation. After discussion and consideration patient elects to proceed with total hip arthroplasty. The patient is seen preoperatively by Dr. Lu and medically cleared for surgery by their primary care physician. Patient is admitted to [facility] on 05/03/2020 for total hip arthroplasty. The procedures performed without complication or sequelae. The patient is doing well postoperatively. Labs and vital signs are stable on day of discharge. On day of discharge patient's hip incision is healing well. There is minimal erythema. There is no drainage noted at this time. There is minimal soft tissue swelling to the hip and thigh. Patient has full foot and ankle motion without difficulty or pain. Calf is soft and nontender to palpation. Neurovascular status to the left lower extremity is intact. Patient is discha rged home in good condition. Opioid start talking form is reviewed and signed at patient bedside. Please see med rec for accurate list of home medications. Plan - Discharge Summary Discharge Rx Participant: No New Discharge Prescriptions: New Aspirin 325 mg PO BID #60 tab HYDROcodone/APAP 5-325MG [Gunlock 5-325] 1 - 2 tab PO Q6HR PRN #48 tab PRN Reason: Pain Sennosides [Senokot] 2 tab PO DAILY PRN #60 tablet PRN Reason: Constipation No Action Latanoprost Ophth [Xalatan 0.005%] 1 drop BOTH EYES HS Butalb/APAP/Caff 50-325-40Mg [Fioricet 50-325-40] 1 tab PO QID PRN PRN Reason: Migraine Headache B Complex-Vit C-Vit E-Zinc [Z-Bec] 1 tab PO DAILY Turmeric Root Extract [Turmeric] 500 mg PO DAILY Cinnamon Bark [Cinnamon] 2,000 mg PO DAILY Cider Vinegar [Apple Cider Vinegar] 1,200 mg PO DAILY Flaxseed Oil 1,200 mg PO DAILY Calcium Carbonate [Tums] 500 - 1,000 mg PO QID PRN PRN Reason: Heartburn Soy Lethicin 1,200 mg PO DAILY Discharge Medication List Butalb/APAP/Caff 50-325-40Mg [Fioricet 50-325-40] 1 tab PO QID PRN 03/14/17 [History] Latanoprost Ophth [Xalatan 0.005%] 1 drop BOTH EYES HS 03/14/17 [History] B Complex-Vit C-Vit E-Zinc [Z-Bec] 1 tab PO DAILY 04/28/20 [History] Calcium Carbonate [Tums] 500 - 1,000 mg PO QID PRN 04/28/20 [History] Cider Vinegar [Apple Cider Vinegar] 1,200 mg PO DAILY 04/28/20 [History] Cinnamon Bark [Cinnamon] 2,000 mg PO DAILY 04/28/20 [History] Flaxseed Oil 1,200 mg PO DAILY 04/28/20 [History] Soy Lethicin 1,200 mg PO DAILY 04/28/20 [History] Turmeric Root Extract [Turmeric] 500 mg PO DAILY 04/28/20 [History] Aspirin 325 mg PO BID #60 tab 05/04/20 [Rx] HYDROcodone/APAP 5-325MG [Gunlock 5-325] 1 - 2 tab PO Q6HR PRN #48 tab 05/04/20 [Rx] Sennosides [Senokot] 2 tab PO DAILY PRN #60 tablet 05/04/20 [Rx] Follow up Appointment(s)/Referral(s): Christopher Lu DO [Doctor of Osteopathic Medicine] - 2 Weeks Activity/Diet/Wound Care/Special Instructions: Weightbearing as tolerated with walker. Leave dressing intact. Dressing may be removed by home care nurse or by patient in 10 days. May shower with dressing on. Recommend use of compression stockings daily until follow up to help prevent swelling and blood clots. May remove at night before sleeping. Please follow-up with [facility] in 2 weeks and call with any questions or concerns, . Discharge Disposition: HOME WITH HOME HEALTH SERVICES
--- NOTE | 2020-05-04 12:06 | P.PN ---
Subjective this is a pleasant 79 yo M with past medical history of COPD and osteoarthritis, hearing difficulty, haital hernia, who presents for elective left hip arthroplasty by orthopedic team for his sever osteoarthritis team. today is post op day #0, pt is lying in bed not in distress, pain is controlled pt denies chest pain , no dyspnea , no dysuria or urinary complaint, he did not have bowel movement yet vitals are stable labs showing mild leukocytosis of 14.8K and chest xray is negative for acute process as per radiologist 05/04/2020 Patient is seen on follow-up, he is fully awake and oriented and he denies chest pain or dyspnea. No abdominal pain. He tolerated his diet this morning, did not have bowel movement but is passing gases, no abdominal pain or urinary symptoms. He feels his back to his usual state except for his left hip problem. Last night patient took 2 pills of David after short while his side having dizziness, chest tightness and was gasping for air, so he femoral called, his blood pressure was low 50/22, EKG was done as well as chest x-ray, eventually his blood pressure improved\ Chest x-ray: No acute process. EKG showing incomplete right bundle about like with a rate at 58 which is bradycardia, QTC is 420 and CA interval is high normal, no significant ST-T changes. However because his QRS in V1 is RSR pattern there is no ST elevation to suspect Brugada syndrome however there is probably some mild ST elevation in V2, these changes are subtle and looks similar to old EKG, however we will call her neurologist for double check Review of Systems CONSTITUTIONAL: No fever, no malaise, no fatigue. HEENT: No recent visual problems or hearing problems. Denied any sore throat. CARDIOVASCULAR: No orthopnea, PND, no palpitations, no syncope. PULMONARY: No shortness of breath, no cough, no hemoptysis. GASTROINTESTINAL: No diarrhea, no nausea, no vomiting, no abdominal pain. Normoactive bowel sounds. NEUROLOGICAL: No headaches, no weakness, no numbness. HEMATOLOGICAL: Denies any bleeding or petechiae. GENITOURINARY: Denies any burning micturition, frequency, or urgency. MUSCULOSKELETAL/RHEUMATOLOGICAL: Denies any joint pain, swelling, or any muscle pain. ENDOCRINE: Denies any polyuria or polydipsia. Active Medications Generic Name Dose Route Start Last Admin Trade Name Freq PRN Reason Stop Dose Admin Hydrocodone Bitart/Acetaminophen 1 each 05/03/20 14:39 David 5-325 PO Q6HR PRN Pain Scale 1 to 5 Hydrocodone Bitart/Acetaminophen 2 each 05/03/20 14:39 05/03/20 20:07 David 5-325 PO 2 each Q6HR PRN Administration Pain Scale 6 to 10 Aspirin 325 mg 05/03/20 21:00 05/04/20 09:08 Aspirin PO 325 mg BID KATIE Administration Famotidine 20 mg 05/04/20 09:00 05/04/20 09:08 Pepcid PO 20 mg DAILY KATIE Administration Hydromorphone HCl 0.125 mg 05/03/20 14:39 Dilaudid IVP Q3HR PRN Pain Scale 1 to 3 Hydromorphone HCl 0.25 mg 05/03/20 14:39 Dilaudid IVP Q3HR PRN Pain Scale 4 to 6 Hydromorphone HCl 0.5 mg 05/03/20 14:39 05/03/20 16:11 Dilaudid IVP 0.5 mg Q3HR PRN Administration Pain Scale 7 to 10 Lactated Ringer's 1,000 mls @ 20 mls/hr 05/03/20 05:45 05/03/20 12:15 Lactated Ringers IV 1,000 mls .Q24H KATIE Administration Sodium Chloride 1,000 mls @ 100 mls/hr 05/03/20 14:45 05/03/20 16:13 Saline 0.9% IV 65 mls/hr .Q10H KATIE Administration Magnesium Hydroxide 2,400 mg 05/03/20 14:39 Milk Of Magnesia PO DAILY PRN Constipation Meloxicam 7.5 mg 05/04/20 09:00 05/04/20 09:08 Mobic PO 7.5 mg DAILY KATIE Administration Naloxone HCl 0.2 mg 05/03/20 14:39 Narcan IV Q2M PRN Opioid Reversal Ondansetron HCl 4 mg 05/03/20 14:39 Zofran IVP Q8H PRN Nausea And Vomiting Senna/Docusate Sodium 2 each 05/03/20 21:00 05/03/20 20:09 Senokot-S PO 2 each HS KATIE Administration Objective - Vital Signs Vital signs: Vital Signs Temp 97.8 F 05/04/20 07:45 Pulse 58 L 05/04/20 07:45 Resp 18 05/04/20 07:45 BP 105/66 05/04/20 07:45 Pulse Ox 97 05/04/20 07:45 Intake & Output 05/03/20 05/04/20 05/04/20 18:59 06:59 18:59 Intake Total 1351 Output Total 300 300 300 Balance 1051 -300 -300 Weight 79.6 kg Intake: IV 1351 Output: Urine 300 300 Estimated Blood Loss 300 Other: # Voids 3 3 - Exam GENERAL: The patient is alert and oriented x3, not in any acute distress. Well developed, well nourished. HEENT: Pupils are round and equally reacting to light. EOMI. No scleral icterus. No conjunctival pallor. Normocephalic, atraumatic. No pharyngeal erythema. No thyromegaly. CARDIOVASCULAR: S1 and S2 present. No murmurs, rubs, or gallops. PULMONARY: Chest is clear to auscultation, no wheezing or crackles. ABDOMEN: Soft, nontender, nondistended, normoactive bowel sounds. No palpable organomegaly. MUSCULOSKELETAL: No joint swelling or deformity. EXTREMITIES: No cyanosis, clubbing, or pedal edema. NEUROLOGICAL: Gross neurological examination did not reveal any focal deficits. SKIN: No rashes. no petechiae. - Labs CBC & Chem 7: 05/04/20 06:46 05/03/20 21:33 Labs: Abnormal Lab Results - Last 24 Hours (Table) 05/03/20 05/03/20 05/03/20 Range/Units 21:00 21:33 21:33 WBC 14.8 H (3.8-10.6) k/uL RBC 4.06 L (4.30-5.90) m/uL Hct (39.0-53.0) % Neutrophils # 13.2 H (1.3-7.7) k/uL Lymphocytes # 0.7 L (1.0-4.8) k/uL Sodium 134 L (137-145) mmol/L Glucose 161 H (74-99) mg/dL POC Glucose (mg/dL) 178 H (75-99) mg/dL 05/04/20 Range/Units 06:46 WBC 12.7 H (3.8-10.6) k/uL RBC 3.87 L (4.30-5.90) m/uL Hct 37.9 L (39.0-53.0) % Neutrophils # 10.6 H (1.3-7.7) k/uL Lymphocytes # (1.0-4.8) k/uL Sodium (137-145) mmol/L Glucose (74-99) mg/dL POC Glucose (mg/dL) (75-99) mg/dL Assessment and Plan Assessment: sever primary osteoarthritis of the left hip status post left total hip arthroplasty\ Episodes of hypotension last night, EKG showing incomplete right bundle branch block with rsr' pattern in V1, we will call cardiology consult leukocytosis , mostly reactive from surgery , no need for antibiotics as there is no clear evidence of infection , improving COPD, not an active issue hearing difficulty haital hernia Plan: this is a pleasant 85 yo M who presents for Left hip arthroplasty , monitor WBC closely is improving with post mostly reactive, patient instructed to follow up with his PCP to check his WBC and he agrees. Recommend close monitoring of the WBC. Will call cardiology consult for possible EKG changes, discussed with bed side nurse met to check orthostatic vitals pain management and DVT prophylaxis as per primary surgery team Labs and medication were reviewed.. Continue same treatment. Continue with symptomatic treatment. Resume home medication. Monitor lytes and vitals. DVT and GI prophylaxis. Further recommendations of the clinical course of the patient DVT prophylaxis: on aspirin BID per surgery team GI Prophylaxis: Pepcid If patient orthostasis are negative and patient cleared by cardiology then patient is medically cleared for discharge with recommendation for close outpatient follow-up including follow-up with his PCP Dr. Brennan within one week, patient instructed with the same and he is to call and make appointment we recommend pt follows up with his pcp in one week after discharge thank you for consulting up
--- NOTE | 2020-05-04 14:31 | P.CRDCN ---
History of Present Illness History of present illness: HISTORY OF PRESENTING ILLNESS This is a pleasant 79-year-old male past medical history significant for COPD, bicuspid aortic valve and arthritis. He denies prior history of coronary artery disease. He does not follow regularly with a bedspread cutter hand. He does get regular echoes through his primary care physician Dr. Brennan. We have been asked to see in consultation for abnormal EKG. He presented to the hospital for an elective left total hip arthroplasty with Dr. Lu. Last night he was having significant pain and was given 2 [place] for pain relief. Shortly thereafter he started feeling extremely short of breath with a lot of pressure on his chest. He describes it as a cement block pushing him into the bed. He notified nursing staff and his blood pressure was checked, 67/41. EKG was obtained revealing sinus bradycardia heart rate of 58 right bundle branch block and poor R-wave progression. Chest x-ray obtained revealed no acute cardiopulmonary process. Laboratory data reviewed, WBC 12.7, hemoglobin 13.4, platelets 151, sodium 134, potassium 4.3, creatinine 0.91. He takes no daily cardiac medications. He's had no further symptoms of chest discomfort or shortness of breath since last night. Most recent echocardiogram obtained November 2019 revealed preserved LV systolic function with ejection fraction 55- 60%, normal diastolic filling pattern, bicuspid aortic valve, mild aortic valve sclerosis, mild aortic regurgitation, mild MR and mild TR. REVIEW OF SYSTEMS At the time of my exam: CONSTITUTIONAL: Denies fever or chills. CARDIOVASCULAR: Denies chest pain, shortness of breath, orthopnea, PND or palpitations. RESPIRATORY: Denies cough. GASTROINTESTINAL: Denies abdominal pain, diarrhea, constipation, nausea or vomiting. MUSCULOSKELETAL: Complains of mild left hip soreness. NEUROLOGIC: Denies numbness, tingling or weakness. ENDOCRINE: Denies fatigue, weight change, polydipsia or polyurina. GENITOURINARY: Denies burning, hematuria or urgency with micturation. HEMATOLOGIC: Denies history of anemia or bleeding. PHYSICAL EXAMINATION Blood pressure 105/66 heart rate 58 afebrile and maintaining oxygen saturation on room air. CONSTITUTIONAL: No apparent distress. HEENT: Head is normocephalic. Pupils are equal, round. Sclerae anicteric. Mucous membranes of the mouth are moist. No JVD. No carotid bruit. CHEST EXAMINATION: Lungs are clear to auscultation. No chest wall tenderness is noted on palpation or with deep breathing. HEART EXAMINATION: Regular rate and rhythm. S1, S2 heard. No murmurs, gallops or rub. ABDOMEN: Soft, nontender. Positive bowel sounds. EXTREMITIES: 2+ peripheral pulses, no lower extremity edema and no calf tenderness. NEUROLOGIC EXAMINATION: Patient is awake, alert and oriented x3. ASSESSMENT Chest pain Hypotension s/p left hip hemiarthroplasty COPD PLAN Check a limited echo to assess for regional wall motion changes from previous echo. Check troponin and d-dimer. Maintained on aspirin regimen per ortho team for DVT prophylaxis. Dr. Waddell will be in to see the patient this evening to read the echo prior to being discharged. Thank you kindly for this consultation. Nurse Practitioner note has been reviewed, I agree with a documented findings and plan of care. Patient was seen and examined. Past Medical History Past Medical History: Cancer, COPD, Eye Disorder, Hearing Disorder / Deafness, Osteoarthritis (OA), Prostate Disorder Additional Past Medical History / Comment(s): "Born with Aortic bicuspid valve," valve regurgitation being monitored. Hx whooping cough as child. "Scarring of lungs, sl COPD." Hx skin cancer. Elevated pressure in eyes. Hiatal hernia. BPH. History of Any Multi-Drug Resistant Organisms: None Reported Past Surgical History: Hernia Repair, Joint Replacement Additional Past Surgical History / Comment(s): Arthroscopic knee surgeriesx4. [place] ing hernia; repair of mesh later. Fx Lt Clavicle surg. Rt rotator cuff surg. Total Lt knee. total left hip. Past Anesthesia/Blood Transfusion Reactions: No Reported Reaction Past Psychological History: No Psychological Hx Reported Smoking Status: Former smoker Past Alcohol Use History: Rare Additional Past Alcohol Use History / Comment(s): Smoked 1959-. Past Drug Use History: None Reported - Past Family History Mother Family Medical History: No Reported History Medications and Allergies Home Medications Medication Instructions Recorded Confirmed Type Butalb/APAP/Caff 50-325-40Mg 1 tab PO QID PRN 03/14/17 04/28/20 History [Fioricet 50-325-40] Latanoprost Ophth [Xalatan 0.005%] 1 drop BOTH EYES HS 03/14/17 04/28/20 History B Complex-Vit C-Vit E-Zinc [Z-Bec] 1 tab PO DAILY 04/28/20 04/28/20 History Calcium Carbonate [Tums] 500 - 1,000 mg PO QID PRN 04/28/20 04/28/20 History Cider Vinegar [Apple Cider Vinegar] 1,200 mg PO DAILY 04/28/20 04/28/20 History Cinnamon Bark [Cinnamon] 2,000 mg PO DAILY 04/28/20 04/28/20 History Flaxseed Oil 1,200 mg PO DAILY 04/28/20 04/28/20 History Soy Lethicin 1,200 mg PO DAILY 04/28/20 History Turmeric Root Extract [Turmeric] 500 mg PO DAILY 04/28/20 04/28/20 History Aspirin 325 mg PO BID #60 tab 05/04/20 Rx Famotidine [Pepcid] 20 mg PO DAILY #15 tab 05/04/20 Rx HYDROcodone/APAP 5-325MG [[place] 1 - 2 tab PO Q6HR PRN #48 tab 05/04/20 Rx 5-325] Sennosides [Senokot] 2 tab PO DAILY PRN #60 tablet 05/04/20 Rx Allergies Allergy/AdvReac Type Severity Reaction Status Date / Time No Known Allergies Allergy Verified 04/28/20 13:12 Physical Exam Vitals: Vital Signs Temp Pulse Pulse Resp BP BP Pulse Ox 05/04/20 07:45 97.8 F 58 L 18 105/66 97 05/04/20 07:27 64 16 05/04/20 01:51 97.6 F 64 16 95/52 95 05/03/20 22:07 64 18 93/54 94 L 05/03/20 21:26 58 L 18 106/62 97 05/03/20 21:23 62 18 95/63 97 05/03/20 20:57 45 L 20 67/41 94 L 05/03/20 19:59 98.3 F 84 16 138/75 93 L 05/03/20 17:50 85 125/81 95 05/03/20 17:35 66 131/80 96 05/03/20 17:20 60 117/72 96 05/03/20 17:05 68 134/73 94 L 05/03/20 16:50 77 114/76 95 05/03/20 16:35 68 114/70 96 05/03/20 16:20 52 L 107/68 97 05/03/20 15:59 98.0 F 57 L 16 110/70 96 05/03/20 15:30 52 L 16 115/61 95 05/03/20 15:15 51 L 16 114/58 96 05/03/20 15:00 56 L 16 111/59 98 05/03/20 14:55 52 L 16 106/57 100 05/03/20 14:42 96.8 F L 58 L 16 108/58 99 Intake and Output 05/03/20 05/04/20 05/04/20 22:59 06:59 14:59 Output Total 300 300 Balance -300 -300 Output: Urine 300 300 Other: # Voids 1 3 3 Results 05/04/20 06:46 05/03/20 21:33 CBC 05/03/20 05/04/20 Range/Units 21:33 06:46 WBC 14.8 H 12.7 H (3.8-10.6) k/uL RBC 4.06 L 3.87 L (4.30-5.90) m/uL Hgb 13.9 13.4 (13.0-17.5) gm/dL Hct 39.8 37.9 L (39.0-53.0) % Plt Count 152 151 (150-450) k/uL Comprehensive Metabolic Panel 05/03/20 Range/Units 21:33 Sodium 134 L (137-145) mmol/L Potassium 4.3 (3.5-5.1) mmol/L Chloride 104 (98-107) mmol/L Carbon Dioxide 23 (22-30) mmol/L BUN 18 (9-20) mg/dL Creatinine 0.91 (0.66-1.25) mg/dL Glucose 161 H (74-99) mg/dL Calcium 8.4 (8.4-10.2) mg/dL Current Medications Generic Name Dose Route Start Last Admin Trade Name Freq PRN Reason Stop Dose Admin Hydrocodone Bitart/Acetaminophen 1 each 05/03/20 14:39 [place] 5-325 PO Q6HR PRN Pain Scale 1 to 5 Hydrocodone Bitart/Acetaminophen 2 each 05/03/20 14:39 05/03/20 20:07 [place] 5-325 PO 2 each Q6HR PRN Administration Pain Scale 6 to 10 Aspirin 325 mg 05/03/20 21:00 05/04/20 09:08 Aspirin PO 325 mg BID KATIE Administration Famotidine 20 mg 05/04/20 09:00 05/04/20 09:08 Pepcid PO 20 mg DAILY KATIE Administration Hydromorphone HCl 0.125 mg 05/03/20 14:39 Dilaudid IVP Q3HR PRN Pain Scale 1 to 3 Hydromorphone HCl 0.25 mg 05/03/20 14:39 Dilaudid IVP Q3HR PRN Pain Scale 4 to 6 Hydromorphone HCl 0.5 mg 05/03/20 14:39 05/03/20 16:11 Dilaudid IVP 0.5 mg Q3HR PRN Administration Pain Scale 7 to 10 Lactated Ringer's 1,000 mls @ 20 mls/hr 05/03/20 05:45 05/03/20 12:15 Lactated Ringers IV 1,000 mls .Q24H KATIE Administration Sodium Chloride 1,000 mls @ 100 mls/hr 05/03/20 14:45 05/03/20 16:13 Saline 0.9% IV 65 mls/hr .Q10H KATIE Administration Magnesium Hydroxide 2,400 mg 05/03/20 14:39 Milk Of Magnesia PO DAILY PRN Constipation Meloxicam 7.5 mg 05/04/20 09:00 05/04/20 09:08 Mobic PO 7.5 mg DAILY KATIE Administration Naloxone HCl 0.2 mg 05/03/20 14:39 Narcan IV Q2M PRN Opioid Reversal Ondansetron HCl 4 mg 05/03/20 14:39 Zofran IVP Q8H PRN Nausea And Vomiting Senna/Docusate Sodium 2 each 05/03/20 21:00 05/03/20 20:09 Senokot-S PO 2 each HS KATIE Administration Intake and Output 05/03/20 05/04/20 05/04/20 22:59 06:59 14:59 Output Total 300 300 Balance -300 -300 Output: Urine 300 300 Other: # Voids 1 3 3 05/04/20 06:46 05/03/20 21:33
[2020-05-04] MEDS: HYDROcodone/APAP 5-325MG 1 EACH TAB PO PRN ×2 (15:31→20:22)
[2020-05-04 15:49] LABS: Cholesterol 140 mg/dL (<200); HDL Cholesterol 46 mg/dL (40-60); LDL Cholesterol,Calculated 70 mg/dL (0-99); Triglycerides 122 mg/dL (<150)
--- NOTE | 2020-05-04 17:47 | ECHOF ---
Referral Reason:cp MEASUREMENTS -------- HEIGHT: 182.9 cm WEIGHT: 90.7 kg BP: RVIDd: 3.2 cm (< 3.3) IVSd: 1.3 cm (0.6 - 1.1) LVIDd: 4.4 cm (3.9 - 5.3) LVPWd: 1.6 cm (0.6 - 1.1) IVSs: 1.4 cm LVIDs: 3.0 cm LVPWs: 1.4 cm Ao Diam: 3.8 cm (2.0 - 3.7) AV maxP.88 mmHg AV meanP.34 mmHg RAP: 5.00 mmHg RVSP: 20.05 mmHg FINDINGS -------- Sinus rhythm. Limited Echo for Lv function. This was a technically adequate study. The left ventricular size is normal. There is mild concentric left ventricular hypertrophy. Overa ll left ventricular systolic function is normal with, an EF between 55 - 60 %. The right ventricle is normal in size. Peak/mean gradient across the Aortic Valve is 18.88mmHg / 10.34mmHg. Functionally bicuspid aortic v alve. Mild mitral annular calcification present. 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 There is no pericardial effusion. CONCLUSIONS -------- 1. Limited Echo for Lv function. 2. There is mild concentric left ventricular hypertrophy. 3. Overall left ventricular systolic function is normal with, an EF between 55 - 60 %. 4. Peak/mean gradient across the Aortic Valve is 18.88mmHg / 10.34mmHg. 5. Functionally bicuspid aortic valve. 6. 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 7. There is no pericardial effusion. MAINTENANCE MANAGER: Wendy Brian RDCS
[2020-05-04] MEDS: LACTATED RINGERS 1,000 ML IV SCH (19:02)
[2020-05-04] MEDS: SODIUM CHLORIDE 0.9% 1,000 ML IV SCH ×2 (19:20→20:13)
[2020-05-04 20:06] VITALS: RESP 16; TEMP 98.5
[2020-05-04] MEDS: SENNOSIDES-DOCUSATE SODIUM 1 EACH TAB PO SCH (20:11)
[2020-05-05] MEDS: LACTATED RINGERS 1,000 ML IV SCH (05:35)
[2020-05-05 07:47] VITALS: BP 125/70; PULSE 74
[2020-05-05] MEDS: HYDROcodone/APAP 5-325MG 1 EACH TAB PO PRN (08:49)
[2020-05-05] MEDS: FAMOTIDINE 20 MG TAB PO SCH (08:50)
[2020-05-05] MEDS: MELOXICAM 7.5 MG TAB PO SCH (08:50)
[2020-05-05] MEDS: ASPIRIN 325 MG TAB PO SCH (08:50)
[2020-05-05] MEDS: SODIUM CHLORIDE 0.9% 1,000 ML IV SCH (09:06)
--- NOTE | 2020-05-05 09:53 | P.PN ---
Subjective this is a pleasant 79 yo M with past medical history of COPD and osteoarthritis, hearing difficulty, haital hernia, who presents for elective left hip arthroplasty by orthopedic team for his sever osteoarthritis team. today is post op day #0, pt is lying in bed not in distress, pain is controlled pt denies chest pain , no dyspnea , no dysuria or urinary complaint, he did not have bowel movement yet vitals are stable labs showing mild leukocytosis of 14.8K and chest xray is negative for acute process as per radiologist 05/04/2020 Patient is seen on follow-up, he is fully awake and oriented and he denies chest pain or dyspnea. No abdominal pain. He tolerated his diet this morning, did not have bowel movement but is passing gases, no abdominal pain or urinary symptoms. He feels his back to his usual state except for his left hip problem. Last night patient took 2 pills of [place] after short while his side having dizziness, chest tightness and was gasping for air, so he femoral called, his blood pressure was low 50/22, EKG was done as well as chest x-ray, eventually his blood pressure improved\ Chest x-ray: No acute process. EKG showing incomplete right bundle about like with a rate at 58 which is bradycardia, QTC is 420 and W[place] interval is high normal, no significant ST-T changes. However because his QRS in V1 is RSR pattern there is no ST elevation to suspect Brugada syndrome however there is probably some mild ST elevation in V2, these changes are subtle and looks similar to old EKG, however we will call her neurologist for double check 05/05/2020 Patient is awake and alert today, he was walking in the room with no difficulty, no dizziness or syncope, no other episodes of chest tightness and drop in blood pressure, he was pleasant and understandable why he needed to stay in the hospital and he agreed to stay in the hospital till within his workup, he is aware about his elevated d-dimer (mild) and the possibility might be related to lung problem We appreciate cardiology input and I discussed the case with Dr. Waddell recommended to do CT A of the chest to rule out PE, I talked to the patient and explained to the patient the benefits and risks and alternative of this test including but not limited to the risk of ALLERGY and nephrotoxicity which could be permanent and he verbalized understanding and acceptance and he told me he had his test before and he agrees to do it. Based on this CT of the chest if is negative then patient will be stable for discharge No other complaints, no abdominal pain, nausea vomiting, no change in urine or bowel habits. No leg pain or swelling or tenderness. Follow-up WBC Review of Systems CONSTITUTIONAL: No fever, no malaise, no fatigue. HEENT: No recent visual problems or hearing problems. Denied any sore throat. CARDIOVASCULAR: No orthopnea, PND, no palpitations, no syncope. PULMONARY: No shortness of breath, no cough, no hemoptysis. GASTROINTESTINAL: No diarrhea, no nausea, no vomiting, no abdominal pain. Normoactive bowel sounds. NEUROLOGICAL: No headaches, no weakness, no numbness. HEMATOLOGICAL: Denies any bleeding or petechiae. GENITOURINARY: Denies any burning micturition, frequency, or urgency. MUSCULOSKELETAL/RHEUMATOLOGICAL: Denies any joint pain, swelling, or any muscle pain. ENDOCRINE: Denies any polyuria or polydipsia. Active Medications Generic Name Dose Route Start Last Admin Trade Name Freq PRN Reason Stop Dose Admin Hydrocodone Bitart/Acetaminophen 1 each 05/03/20 14:39 05/05/20 08:49 [place] 5-325 PO 1 each Q6HR PRN Administration Pain Scale 1 to 5 Hydrocodone Bitart/Acetaminophen 2 each 05/03/20 14:39 05/04/20 15:31 [place] 5-325 PO 2 each Q6HR PRN Administration Pain Scale 6 to 10 Aspirin 325 mg 05/03/20 21:00 05/05/20 08:50 Aspirin PO 325 mg BID KATIE Administration Famotidine 20 mg 05/04/20 09:00 05/05/20 08:50 Pepcid PO 20 mg DAILY KATIE Administration Hydromorphone HCl 0.125 mg 05/03/20 14:39 Dilaudid IVP Q3HR PRN Pain Scale 1 to 3 Hydromorphone HCl 0.25 mg 05/03/20 14:39 Dilaudid IVP Q3HR PRN Pain Scale 4 to 6 Hydromorphone HCl 0.5 mg 05/03/20 14:39 05/03/20 16:11 Dilaudid IVP 0.5 mg Q3HR PRN Administration Pain Scale 7 to 10 Lactated Ringer's 1,000 mls @ 20 mls/hr 05/03/20 05:45 07/16/20 05:35 Lactated Ringers IV 20 mls/hr .Q24H KATIE Administration Sodium Chloride 1,000 mls @ 100 mls/hr 05/03/20 14:45 05/05/20 09:06 Saline 0.9% IV 100 mls/hr .Q10H KATIE Administration Magnesium Hydroxide 2,400 mg 05/03/20 14:39 Milk Of Magnesia PO DAILY PRN Constipation Meloxicam 7.5 mg 05/04/20 09:00 05/05/20 08:50 Mobic PO 7.5 mg DAILY KATIE Administration Naloxone HCl 0.2 mg 05/03/20 14:39 Narcan IV Q2M PRN Opioid Reversal Ondansetron HCl 4 mg 05/03/20 14:39 Zofran IVP Q8H PRN Nausea And Vomiting Senna/Docusate Sodium 2 each 05/03/20 21:00 05/04/20 20:11 Senokot-S PO 2 each HS KATIE Administration Objective - Vital Signs Vital signs: Vital Signs Temp 98.5 F 05/05/20 07:47 Pulse 74 05/05/20 07:47 Resp 16 05/05/20 07:47 BP 125/70 05/05/20 07:47 Pulse Ox 92 L 05/05/20 07:47 Intake & Output 05/04/20 05/05/20 05/05/20 18:59 06:59 18:59 Intake Total 700 Output Total 600 300 Balance -600 700 -300 Intake: Intake, IV Titration 400 Amount Lactated Ringers 1,000 ml 200 @ 20 mls/hr IV .Q24H KATIE Rx#:[id number] Sodium Chloride 0.9% 1, 200 000 ml @ 50 mls/hr IV . Q20H KATIE Rx#:[id number] Oral 300 Output: Urine 600 300 Other: # Voids 3 2 2 - Exam GENERAL: The patient is alert and oriented x3, not in any acute distress. Well developed, well nourished. HEENT: Pupils are round and equally reacting to light. EOMI. No scleral icterus. No conjunctival pallor. Normocephalic, atraumatic. No pharyngeal erythema. No thyromegaly. CARDIOVASCULAR: S1 and S2 present. No murmurs, rubs, or gallops. PULMONARY: Chest is clear to auscultation, no wheezing or crackles. ABDOMEN: Soft, nontender, nondistended, normoactive bowel sounds. No palpable organomegaly. MUSCULOSKELETAL: No joint swelling or deformity. EXTREMITIES: No cyanosis, clubbing, or pedal edema. NEUROLOGICAL: Gross neurological examination did not reveal any focal deficits. SKIN: No rashes. no petechiae. 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 Recommend close monitoring of the WBC. We appreciate cardiology input, discussed the case with them and they ordered and CT NG of the chest, continue with IV fluids for now pain management and DVT prophylaxis as per primary surgery team Labs and medication were reviewed.. Continue same treatment. Continue with s ymptomatic treatment. Resume home medication. Monitor lytes and vitals. DVT and GI prophylaxis. Further recommendations of the clinical course of the patient DVT prophylaxis: on aspirin BID per surgery team GI Prophylaxis: Pepcid we recommend pt follows up with his pcp in one week after discharge thank you for consulting up
--- NOTE | 2020-05-05 09:56 | CT ---
EXAMINATION TYPE: CT angio chest DATE OF EXAM: 05/05/2020 COMPARISON: Correlation radiograph 05/03/2020. Also, CT abdomen and pelvis 09/07/2019. HISTORY: 79 year-old male shortness of breath and elevated d-dimer TECHNIQUE: Contiguous axial scanning of the chest performed with IV Contrast, patient injected with 1 00 mL of Isovue 370. Coronal/sagittal MIP reconstructions performed. CT DLP: 475.2 mGycm Automated exposure control for dose reduction was used. FINDINGS: Heart normal size without pericardial effusion. No flattening of the interventricular septum or reflu x of contrast into the hepatic veins. Aortic root is ectatic at 3.9 cm. Ascending aorta mildly aneurysmal at 4.2 cm. Conventional arch was a branching anatomy. Ectatic upper descending thoracic aorta at 3.1 cm. No thoracic lymphadenopathy by CT size criteria. Satisfactory opacification of the pulmonary arterial system. There are breathing motion artifact in t he lower lungs causing mild heterogeneity of the pulmonary arterial system. This limits many of the s egmental and more distal arterial branches of the basilar lower lobes especially on the left. No defi nite pulmonary embolus is seen. Calcified granuloma left lower lobe, axial image 85. No consolidation or pleural effusion. Strandy at electasis in the lower lungs. 8 mm peripheral left basilar pulmonary nodule, stable from 09/07/2019 but larger from 5 mm back in 20 14. 1 year precautionary follow-up recommended. Visualized upper abdomen shows parapelvic cysts in the right kidney and partially visualized prominen t cyst lateral left kidney. Tiny calcified granuloma within the spleen. Bones: Moderate degenerative disc disease mid to lower thoracic spine with accentuated lower thoracic kyphosis. Normal variant sternal foramen. IMPRESSION: 1. BREATHING MOTION ARTIFACT ESPECIALLY AT THE LUNG BASES. NO DEFINITE PULMONARY EMBOLUS. 2. ASCENDING AORTIC ANEURYSM AT 4.2 CM. ECTATIC UPPER DESCENDING THORACIC AORTA 3.1 CM. 3. AN 8 MM LEFT BASILAR PULMONARY NODULE IS STABLE FROM 2019 BUT LARGER FROM 2014 WHERE IT MEASURED 5 MM. A PRECAUTIONARY ONE-YEAR FOLLOW-UP CHEST IS RECOMMENDED TO REASSESS.
--- NOTE | 2020-05-05 10:06 | PN ---
PROGRESS NOTE Mr. Smith is a 79-year-old male who has underwent intervention on his hip. He was seen for cardiac evaluation because of an episode of chest discomfort and hypotension. He is feeling well since last night. His breathing is stable. He denies any chest pain. He denies any dizziness or palpitation. He has been ambulating without difficulty. He had an echocardiogram that revealed a bicuspid aortic valve with a mean gradient of 10 mmHg and mild dilatation of the ascending aorta and preserved left ventricular size and systolic function. His D-dimer was minimally elevated. MEDICATION: At this time include aspirin, Pepcid, magnesium, Mobic. PHYSICAL EXAMINATION: Blood pressure 125/70 with a heart rate in 70s. LUNGS: Clear. HEART: Regular rate and rhythm S1, S2. No S3 with systolic murmur and an ejection click. No diastolic murmur. ABDOMEN: Soft, nontender. EXTREMITIES: Trace edema. LAB DATA: Revealed a D-dimer of 1.02. His troponin is less than 0.012. Cholesterol 140, LDL of 70. IMPRESSION: 1. Status post hip intervention. 2. Episode of hypotension and chest discomfort with no evidence of acute coronary syndrome. The possibility of pulmonary embolism cannot be totally excluded. 3. History of bicuspid aortic valve with no significant aortic stenosis or regurgitation with evidence of mild dilatation of the ascending aorta. RECOMMENDATION: I would recommend to proceed with a CT angiogram of the chest. If there is no evidence of pulmonary embolism, then no further cardiac workup will be needed. Otherwise, I would recommend to anticoagulated the patient. I have discussed these findings with the patient and he is in full understanding and agreement. MMODL / IJN: [id number] /
[2020-05-05 10:21] LABS: HGB 10.7 gm/dL (13.0-17.5); MCH 33.1 pg (25.0-35.0); MCHC 34.4 g/dL (31.0-37.0); MCV 96.3 fL (80.0-100.0); Mean Platelet Volume 9.3; Platelet Count 107 k/uL (150-450); RBC 3.22 m/uL (4.30-5.90); RDW 12.6 % (11.5-15.5); WBC 9.1 k/uL (3.8-10.6)
--- NOTE | 2020-05-05 11:11 | P.PN ---
Subjective Progress Note Date: 05/05/20 This is a 79-year-old male who is status post left total hip arthroplasty. This is postoperative day #2 and patient is seen and evaluated at bedside. Patient underwent echocardiogram and CTA and has been evaluated by cardiology. Patient states that he has been able to walk around his room and his pain is well- controlled. Patient denies any new complaints today. Patient denies any fever/chills, chest pain, headache, shortness of breath, numbness, weakness or tingling. Objective - Vital Signs Vital signs: Vital Signs Temp 98.5 F 05/05/20 07:47 Pulse 74 05/05/20 07:47 Resp 16 05/05/20 07:47 BP 125/70 05/05/20 07:47 Pulse Ox 92 L 05/05/20 07:47 Intake & Output 05/04/20 05/05/20 05/05/20 18:59 06:59 18:59 Intake Total 700 Output Total 600 300 Balance -600 700 -300 Intake: Intake, IV Titration 400 Amount Lactated Ringers 1,000 ml 200 @ 20 mls/hr IV .Q24H KATIE Rx#:[id number] Sodium Chloride 0.9% 1, 200 000 ml @ 50 mls/hr IV . Q20H KATIE Rx#:[id number] Oral 300 Output: Urine 600 300 Other: # Voids 3 2 2 - Exam On inspection dressing is clean, dry and intact. No swelling to bilateral lower extremities. Calf is soft and nontender to palpation. Patient has full foot and ankle motion without pain or difficulty. Neurovascular and circulatory status are intact. - Labs CBC & Chem 7: 05/05/20 10:11 05/03/20 21:33 Labs: Abnormal Lab Results - Last 24 Hours (Table) 05/04/20 05/05/20 Range/Units 15:05 10:11 RBC 3.22 L (4.30-5.90) m/uL Hgb 10.7 L (13.0-17.5) gm/dL Hct 31.0 L (39.0-53.0) % Plt Count 107 L (150-450) k/uL D-Dimer 1.02 H (<0.60) mg/L FEU Assessment and Plan (1) S/P total hip arthroplasty Current Visit: Yes Status: Acute Code(s): Z96.649 - PRESENCE OF UNSPECIFIED ARTIFICIAL HIP JOINT SNOMED Code(s): 841708204563 (2) Osteoarthritis of left hip Current Visit: Yes Status: Acute Code(s): M16.12 - UNILATERAL PRIMARY OSTEOARTHRITIS, LEFT HIP SNOMED Code(s): 587688707986948 Plan: 1. Continue routine postoperative care and pain control. 2. Weightbearing as tolerated to the left lower extremity. 3. Physical therapy today. 4. Appreciate input from internal medicine and cardiology. 5. Aspirin for DVT prophylaxis. 6. Anticipate discharge home later today if cleared medically.
--- NOTE | 2020-05-05 11:19 | P.DS ---
Providers Expected date of discharge: 05/05/20 Attending physician: Christopher Lu Consults: 05/03/20 14:39 Consult Physician Routine Consulting Provider: Isabella Styles Consult Reason/Comments: medical management Do you want consulting provider notified?: Yes 05/04/20 12:01 Consult Physician Urgent Consulting Provider: Victoria Simmons Consult Reason/Comments: ekg changes Do you want consulting provider notified?: Yes Primary care physician: Sony Brennan - Discharge Diagnosis(es) (1) S/P total hip arthroplasty Current Visit: Yes Status: Acute (2) Osteoarthritis of left hip Current Visit: Yes Status: Acute Hospital Course: This is a 79-year-old male with known history of degenerative arthritis of the left hip. The patient presents for evaluation. After discussion and consideration patient elects to proceed with total hip arthroplasty. The patient is seen preoperatively by Dr. Lu and medically cleared for surgery by their primary care physician. Patient is admitted to [facility] on 05/03/2020 for total hip arthroplasty. The procedures performed without complication or sequelae. The patient is doing well postoperatively. Labs and vital signs are stable on day of discharge. Patient was evaluated by cardiology and underwent ECHO and CTA which were within normal limits. On day of discharge patient's hip incision is healing well. There is minimal erythema. There is no drainage noted at this time. There is minimal soft tissue swelling to the hip and thigh. Patient has full foot and ankle motion without difficulty or pain. Calf is soft and nontender to palpation. Neurovascular status to the left lower extremity is intact. Patient is discharged home in good condition. Opioid start talking form is reviewed and signed at patient bedside. Please see med rec for accurate list of home medications. Plan - Discharge Summary Discharge Rx Participant: No New Discharge Prescriptions: New Aspirin 325 mg PO BID #60 tab HYDROcodone/APAP 5-325MG [Highlands 5-325] 1 - 2 tab PO Q6HR PRN #48 tab PRN Reason: Pain Sennosides [Senokot] 2 tab PO DAILY PRN #60 tablet PRN Reason: Constipation Famotidine [Pepcid] 20 mg PO DAILY #15 tab Continue Latanoprost Ophth [Xalatan 0.005%] 1 drop BOTH EYES HS Butalb/APAP/Caff 50-325-40Mg [Fioricet 50-325-40] 1 tab PO QID PRN PRN Reason: Migraine Headache B Complex-Vit C-Vit E-Zinc [Z-Bec] 1 tab PO DAILY Turmeric Root Extract [Turmeric] 500 mg PO DAILY Cinnamon Bark [Cinnamon] 2,000 mg PO DAILY Cider Vinegar [Apple Cider Vinegar] 1,200 mg PO DAILY Flaxseed Oil 1,200 mg PO DAILY Calcium Carbonate [Tums] 500 - 1,000 mg PO QID PRN PRN Reason: Heartburn Soy Lethicin 1,200 mg PO DAILY Discharge Medication List Butalb/APAP/Caff 50-325-40Mg [Fioricet 50-325-40] 1 tab PO QID PRN 03/14/17 [History] Latanoprost Ophth [Xalatan 0.005%] 1 drop BOTH EYES HS 03/14/17 [History] B Complex-Vit C-Vit E-Zinc [Z-Bec] 1 tab PO DAILY 04/28/20 [History] Calcium Carbonate [Tums] 500 - 1,000 mg PO QID PRN 04/28/20 [History] Cider Vinegar [Apple Cider Vinegar] 1,200 mg PO DAILY 04/28/20 [History] Cinnamon Bark [Cinnamon] 2,000 mg PO DAILY 04/28/20 [History] Flaxseed Oil 1,200 mg PO DAILY 04/28/20 [History] Soy Lethicin 1,200 mg PO DAILY 04/28/20 [History] Turmeric Root Extract [Turmeric] 500 mg PO DAILY 04/28/20 [History] Aspirin 325 mg PO BID #60 tab 05/04/20 [Rx] Famotidine [Pepcid] 20 mg PO DAILY #15 tab 05/04/20 [Rx] HYDROcodone/APAP 5-325MG [Highlands 5-325] 1 - 2 tab PO Q6HR PRN #48 tab 05/04/20 [Rx] Sennosides [Senokot] 2 tab PO DAILY PRN #60 tablet 05/04/20 [Rx] Follow up Appointment(s)/Referral(s): Sony Brennan MD [Primary Care Provider] - 05/11/20 3:30 pm Chip Waddell MD [STAFF PHYSICIAN] - 1 Week (Office will be in contact upon discharge to set up a follow up appointment) [facility], [NON-STAFF] - As Needed Christopher Lu DO [Doctor of Osteopathic Medicine] - 05/18/20 2:20 pm Patient Instructions/Handouts: Total Hip Replacement (DC) Activity/Diet/Wound Care/Special Instructions: Weightbearing as tolerated with walker. Leave dressing intact. Dressing may be removed by home care nurse or by patient in 10 days. May shower with dressing on. Recommend use of compression stockings daily until follow up to help prevent swelling and blood clots. May remove at night before sleeping. Please follow-up with [facility] in 2 weeks and call with any questions or concerns, . Discharge Disposition: HOME WITH HOME HEALTH SERVICES
== END 2020-05-05 11:22 | disposition home health service (06) ==
LOC: OR 11:34 → 4SSUR 14:00 → OR 05-05 11:22
PROVIDERS: ATTEND Orthopaedic Surgery
DX: M16.0 Bilateral primary osteoarthritis of hip (principal); D72.829 Elevated white blood cell count, unspecified; I45.10 Unspecified right bundle-branch block; Q23.1 Congenital insufficiency of aortic valve; J44.9 Chronic obstructive pulmonary disease, unspecified; I95.9 Hypotension, unspecified; H40.9 Unspecified glaucoma; H91.90 Unspecified hearing loss, unspecified ear; N40.0 Benign prostatic hyperplasia without lower urinary tract symptoms; K44.9 Diaphragmatic hernia without obstruction or gangrene; G25.81 Restless legs syndrome; Z85.828 Personal history of other malignant neoplasm of skin; Z96.652 Presence of left artificial knee joint; Z98.890 Other specified postprocedural states; Z87.891 Personal history of nicotine dependence; Z79.899 Other long term (current) drug therapy
CPT/HCPCS: 93308; 93005; 97110; 97161; 97535; 97165; 86891; 86900; 86901; 85379; 80061; 80048; 84484; 85025 ×2; 85027; 86850; 88300; 73501 ×2; 71045; 71275; 27130; C1776; J2250; J0171; J1644; J1100; J0690 ×3; J2405; J3010; J1885; J2795; J2704; J0735; J1170; Q9967

== ENCOUNTER → 2020-12-13 | Outpatient (CLI) | payer MEDICARE, OTHER ==
--- NOTE | 2020-12-13 19:19 | CT ---
EXAMINATION TYPE: CT chest w con DATE OF EXAM: 12/13/2020 COMPARISON: CT angiogram 05/05/2020 HISTORY: Solitary pulmonary nodule. CT DLP: 501 mGycm Automated exposure control for dose reduction was used. CONTRAST: CT scan of the chest is performed with IV Contrast, patient injected with 100ml mL of Isovue 300. FINDINGS: LUNGS: The lungs are stable, there is no concerning parenchymal mass or nodule identified, previously identified nodular density at the left lung base is unchanged and is likely postinflammatory. Ther e is no pleural effusion or pneumothorax seen. The tracheobronchial tree is patent. MEDIASTINUM: There are no greater than 1 cm hilar or mediastinal lymph nodes. No pericardial effusi on is seen. AORTA: Ascending aorta is 4.2 cm, proximal descending aorta 2.3 cm, aortic root measurement manageme nt is not easily obtained due to motion. OTHER: Suspect there are parapelvic cysts within the right kidney IMPRESSION: Stable left lower lobe pulmonary nodule. Stable aortic aneurysm.
== END | disposition home or self-care (01) ==
LOC: RADCTMAIN 15:00
PROVIDERS: ATTEND Family Medicine
DX: R91.1 Solitary pulmonary nodule (principal); I71.9 Aortic aneurysm of unspecified site, without rupture
CPT/HCPCS: 71260; Q9967

== ENCOUNTER → 2021-12-22 | Outpatient (CLI) | payer MEDICARE, OTHER ==
--- NOTE | 2021-12-24 14:00 | ECHOF ---
Referral Reason:Q23.1 MEASUREMENTS -------- HEIGHT: 172.7 cm WEIGHT: 79.8 kg BP: RVIDd: 2.4 cm (< 3.3) IVSd: 1.4 cm (0.6 - 1.1) LVIDd: 3.4 cm (3.9 - 5.3) LVPWd: 1.6 cm (0.6 - 1.1) IVSs: 1.9 cm LVIDs: 2.0 cm LVPWs: 2.1 cm LAESV Index (A-L): 23.09 ml/m Ao Diam: 4.2 cm (2.0 - 3.7) AV Cusp: 1.5 cm (1.5 - 2.6) LA Diam: 2.5 cm (2.7 - 3.8) MV EXCURSION: 22.213 mm (> 18.000) MV EF SLOPE: 97 mm/s (70 - 150) EPSS: 0.6 cm MV E Epifanio: 0.59 m/s MV DecT: 438 ms MV A Epifanio: 0.63 m/s MV E/A Ratio: 0.94 AV maxP.37 mmHg AV meanP.17 mmHg AR PHT: 518 ms RAP: 5.00 mmHg RVSP: 26.15 mmHg TAPSE: 21.52 mm FINDINGS -------- This was a technically good study. The left ventricular size is normal. There is moderate concentric left ventricular hypertrophy. O verall left ventricular systolic function is normal with, an EF between 55 - 60 %. The diastolic fi lling pattern is normal for the age of the patient 10.40. The right ventricle is normal in size. The left atrial size is normal. Normal LA size by volume 22+/-6 ml/m2. The right atrial size is normal. Trace amount of aortic regurgitation. Peak/mean gradient across the Aortic Valve is 12.37mmHg / 6. 17mmHg. Aortic valve is functionally bicuspid and is moderately thickened. There is trace mitral regurgitation. There is mild mitral valve prolapse. The tricuspid valve appears structurally normal. Mild tricuspid regurgitation present. Right vent ricular systolic pressure is normal at < 35 mmHg. There is no pulmonic regurgitation present. The aortic root size is normal. Normal inferior vena cava with normal inspiratory collapse consistent with estimated right atrial pre ssure of 5 mmHg. There is no pericardial effusion. CONCLUSIONS -------- 1. The left ventricular size is normal. 2. There is moderate concentric left ventricular hypertrophy. 3. Overall left ventricular systolic function is normal with, an EF between 55 - 60 %. 4. The diastolic filling pattern is normal for the age of the patient 10.40 5. Trace amount of aortic regurgitation. 6. Peak/mean gradient across the Aortic Valve is 12.37mmHg / 6.17mmHg. 7. Aortic valve is functionally bicuspid and is moderately thickened. 8. There is trace mitral regurgitation. 9. There is mild mitral valve prolapse. 10. Mild tricuspid regurgitation present. 11. There is no pericardial effusion. MAINTENANCE JOURNEYMAN: Arlyn Groves RDCS
== END | disposition home or self-care (01) ==
LOC: RADECHMAIN 13:42
PROVIDERS: ATTEND Family Medicine
DX: I08.3 Combined rheumatic disorders of mitral, aortic and tricuspid valves (principal)
CPT/HCPCS: 93306

== ENCOUNTER → 2022-03-30 | Outpatient (CLI) | payer MEDICARE, OTHER ==
[2022-03-30 12:00] LABS: Appearance,Urine Clear (Clear); Bilirubin,Urine Negative (Negative); Blood,Urine Negative (Negative); Color,Urine Colorless; Glucose,Urine (UA) Negative (Negative); Ketones,Urine Negative (Negative); Leukocyte Esterase,Urine Negative (Negative); Nitrite,Urine Negative (Negative); Protein,Urine Negative (Negative); Specific Gravity,Urine 1.005 (1.001-1.035); Urobilinogen,Urine <2.0 mg/dL (<2.0)
[2022-03-30 12:07] LABS: Partial Thromboplastin Time 24.6 sec (22.0-30.0)
[2022-03-30 18:47] LABS: HGB 15.5 g/dL (13.0-17.0); MCH 33.6 pg (27.0-32.0); MCHC 33.7 g/dL (32.0-37.0); MCV 99.8 fL (80.0-97.0); Mean Platelet Volume 10.2 fL (9.5-12.2); NRBC Per 100 WBC 0 /100 WBCS (0.0-0.0); Platelet Count 137 X 10*3/uL (140-440); RBC 4.61 X 10*6/uL (4.40-5.60); RDW 12.6 % (11.5-14.5); WBC 4.15 X 10*3/uL (4.50-10.00)
[2022-03-30 19:09] LABS: African American GFR (CKD) 98.5 (60.0-200.0); Albumin 4.2 g/dL (3.8-4.9); Albumin/Globulin Ratio 1.91 (1.60-3.17); BUN/Creat Ratio 16.38 Ratio (12.00-20.00); Blood Urea Nitrogen 13.1 mg/dL (9.0-27.0); Calcium 9.5 mg/dL (8.7-10.3); Globulin 2.2 g/dL (1.6-3.3); Potassium 5.2 mmol/L (3.5-5.5); Total Bilirubin 0.7 mg/dL (0.30-1.20); Total Protein 6.4 g/dL (6.2-8.2)
== END | disposition home or self-care (01) ==
LOC: LABPAT 09:33
PROVIDERS: ATTEND Orthopaedic Surgery
DX: Z01.818 Encounter for other preprocedural examination (principal); I45.10 Unspecified right bundle-branch block; M17.11 Unilateral primary osteoarthritis, right knee; R94.31 Abnormal electrocardiogram [ECG] [EKG]; R00.1 Bradycardia, unspecified
CPT/HCPCS: 36415; 80053; 81003; 85027; 85610; 85730; 87070; 93005

== ENCOUNTER 2022-04-10 09:19 | Day surgery (SDC) | payer MEDICARE, OTHER ==
[~2022-04-10 09:19] MED LIST changes: -ACETAMINOPHEN TAB 500 MG TAB PO ONE; +ACETAMINOPHEN TAB 500 MG TAB PO PRN; -DEXAMETHASONE SOD PHOSPHATE 10 MG/ML 1 ML VIAL IV ONE; +DEXAMETHASONE SOD PHOSPHATE 4 MG/ML 1 ML VIAL IV ONE; -GABAPENTIN 300 MG CAP PO ONE; +GABAPENTIN 300 MG CAP PO PRN; +LACTATED RINGERS 1,000 ML IV SCH; +LIDOCAINE 1% (10MG/ML) FOR IV START INTRADERMA PRN; -MELOXICAM 7.5 MG TAB PO ONE; +MELOXICAM 7.5 MG TAB PO PRN; -MIDAZOLAM 2 MG/2 ML VIAL IV PRN; +ONDANSETRON 4 MG/2 ML VIAL IVP PRN; -TRANEXAMIC ACID 1,000 MG in SODIUM CHLORIDE 0.9% 100 ML IVPB ONE; +TRANEXAMIC ACID IN NACL,ISO-OS 1,000 MG in SALINE 1 100ML.BAG IVPB PRN
[2022-04-10] MEDS ORDERED: MIDAZOLAM 2 MG/2 ML VIAL IVP ONE (10:30)
[2022-04-10] MEDS ORDERED: fentaNYL (PF) 50 MCG/ML 2 ML AMP IVP ONE (10:30)
[2022-04-10] MEDS ORDERED: ROPIVACAINE 5 MG/ML 30 ML VIAL ONE (11:35)
[2022-04-10] MEDS ORDERED: TRANEXAMIC ACID IN NACL,ISO-OS 1,000 MG/100 ML BAG ONE (11:35)
[2022-04-10] MEDS ORDERED: fentaNYL (PF) 50 MCG/ML 2 ML AMP ONE (11:35)
[2022-04-10] MEDS ORDERED: MIDAZOLAM 2 MG/2 ML VIAL ONE (11:35)
[2022-04-10] MEDS ORDERED: ceFAZolin 1,000 MG in SODIUM CHLORIDE 0.9% 1,000 ML IRRIGATION ONE (11:37)
--- NOTE | 2022-04-10 12:47 | P.ANPRN ---
Procedure Note - Anesthesia - Nerve Block Performed Right Adductor Canal Time Out Performed: Yes (:) Date of Procedure: 04/10/22 Procedure Start Time: Procedure Stop Time: :36 Location of Patient: PreOp Indication: Acute Post-Operative Pain, Requested by Surgeon (Dr Christopher Lu) Sedation Type: Sedate with meaningful contact maintained Preparation: Sterile Prep, Sterile Dressing Position: Supine Catheter: Indwelling Needle Types: Pajunk Needle Gauge: 21 Ultrasound used to visualize needle placement: Yes Ultrasound used to observe medication spread: Yes Injectate: 0.5% Ropivacaine (see comment for volume) (15cc) Blood Aspirated: No Pain Paresthesia on Injection Noted: No Resistance on Injection: Normal Image Stored and Saved: Yes Events: Uneventful and Well Tolerated
--- NOTE | 2022-04-10 12:48 | P.ANPRN ---
Procedure Note - Anesthesia - Nerve Block Performed Right iPack Time Out Performed: Yes Date of Procedure: 04/10/22 Procedure Start Time: 10:37 Procedure Stop Time: 10:45 Location of Patient: PreOp Indication: Acute Post-Operative Pain, Requested by Surgeon (DR Christopher Lu) Sedation Type: Sedate with meaningful contact maintained Preparation: Sterile Prep Position: Supine Catheter: None Needle Types: Pajunk Needle Gauge: 21 Ultrasound used to visualize needle placement: Yes Ultrasound used to observe medication spread: Yes Injectate: 0.5% Ropivacaine (see comment for volume) (15cc) Blood Aspirated: No Pain Paresthesia on Injection Noted: No Resistance on Injection: Normal Image Stored and Saved: Yes Events: Uneventful and Well Tolerated
--- NOTE | 2022-04-10 12:51 | P.OP ---
Date of Procedure: 04/10/22 Preoperative Diagnosis: Severe osteoarthritis right knee Postoperative Diagnosis: Severe osteoarthritis right knee Procedure(s) Performed: Right total knee arthroplasty Implants: G[employer]hew Journey II CR Oxinium cruciate retaining femoral component size 7, right [employer] Journey nonporous tibial baseplate size 6, right [employer] Journey II, XLPE Deep Dished articular insert, size 12 mm, Size 5-6, right [employer] Journey Sia II resurfacing patellar component, oval, 32 mm All components were cemented using Palacos R bone cement The articulation is Oxinium on polyethylene Anesthesia: spinal Surgeon: Christopher Lu Flight Operations Dispatch Clerk #1: Essence Aranda Estimated Blood Loss (ml): 30 Pathology: other (Bone and cartilage) Condition: stable Disposition: PACU Indications for Procedure: After failure of conservative treatment we discussed the surgical and nonsurgical treatment options at length. Patient wishes to proceed with a total knee arthroplasty. Complications specific to this procedure were discussed at length, including but not limited to infection, bleeding, stiffness, and nerve injury. Covid-19 was also discussed at length with the patient, and they are aware of the current policies and procedures. The patient was given the option of delaying surgery, but they elect to proceed knowing these risks. Patient is aware of all these complications and informed consent was obtained Operative Findings: The operative findings are consistent with severe osteoarthritis of the right knee Description of Procedure: Patient was seen in the preoperative area and the consent was reviewed and the operative site was marked with a skin marker. The patient verified the procedure and the operative site. An adductor canal pain catheter and an iPACK block was placed by anesthesia in the preoperative area. The patient was then brought to the operating room and given preoperative antibiotics intravenously. A gram of transexamic acid was given intravenously. A spinal anesthetic was administered by the anesthesia department. A tourniquet was placed on the upper thigh and the lower extremity was prepped with chlorhexidine and draped in usual sterile fashion. A universal timeout was then performed which confirmed the patient's name, surgical site, ALLERGIES, and consent. The lower extremity was then exsanguinated and tourniquet was inflated to 250 mmHg. A standard anterior midline approach to the knee was performed. The skin and subcutaneous tissue were sharply dissected down to the patellar tendon. A medial parapatellar arthrotomy was then performed. The knee was then extended, the patellar was everted, and the knee was again flexed. The infra-patellar fat pad was removed in order to enhance exposure. The anterior horns of both menisci were excised, and a release was performed to the posterior medial aspect of the knee. On gross visual inspection, there was complete loss of articular cartilage in the medial and patellofemoral joint spaces. There was also significant cartilage damage in the lateral compartment. There were multiple periarticular osteophytes globally about the knee which were then removed with a Ronguer. The femoral canal was then opened with the 9.5 mm intramedullary drill. The 8 mm intramedullary marcos was then inserted into the femoral canal with the distal femoral cutting guide set for 5 of valgus. The distal femoral cutting block was then pinned in place. The intramedullary marcos was then removed, and the distal femur was then cut. The cutting block was then removed and the cut was checked for symmetry. The resected bone was then measured to confirm the appropriate distal femoral resection. Next, the sizing guide was then placed and set for 3 external rotation based off of the epicondylar axis and Whitesides line. Pins were then placed and the drill holes, and the femur was sized with the sizing stylus. The pins were then removed, and the sizing guide was then removed. The spikes of the femoral block was then placed into the predrilled holes, and malleted into place. Two 45 mm pins were then placed into the fixation holes on the cutting block. An aparna wing was then used to ensure there would be no notching with the anterior cut. The anterior condyles were cut without notching. The anterior chord cut was then performed, followed by the posterior cut, posterior chamfer cut, and the anterior chamfer cut. The collateral ligaments were protected during the entire process. The cutting block was then removed. Any remaining bone and osteophytes were removed from the femur with a Ronguer. The femoral canal was plugged with autologous bone. Attention was then directed to the tibia. The remaining ACL was removed with a Ronguer, and the tibia was then gently subluxed forward with a large bent knee retractor. Any remaining menisci were excised. The posterior lateral corner was cauterized in order to coagulate the lateral geniculate artery. The extra medullary tibial cutting guide was then placed, set for the appropriate rotation, slope, and depth of resection. The proximal tibia cutting guide was then pinned in place. Proximal tibia was then cut and sized. The femoral trial was placed. A narrow saw blade was then used to remove the anterior intracondylar femoral bone. The CR notch trial was then placed. The tibial trial was placed with the appropriate-sized insert. The knee was able to fully extend and flex to 130 and was stable throughout all range of motion. The knee was then extended and the patella was everted. Patella was then measured, and then using an osteotomy guide, the patella was cut at the appropriate level. The patella was then measured and drilled and the patella trial was then placed. The knee was then taken through range of motion with the patella trial and the patella tracked normally using the no thumbs technique. The knee was then extended patella trial was then removed and the patella was everted. Knee was then flexed and lug holes were drilled through the femoral trial and the femoral trial was then removed. The tibial was then re-exposed, and the tibial broach guide was then pinned in place after it was set for the appropriate rotation to allow for the most coverage without overhang. The tibia was then reamed and broached. The cut surfaces of bone were then irrigated with pulsatile lavage. The knee was also irrigated with Irrisept solution. The components were then opened, the cement was mixed, and the components were then cemented in place. The cement wa s allowed to harden with the knee in full extension. After the cemented hardened, the tourniquet was released and hemostasis was obtained. A second gram of transexamic acid was given intravenously. The knee was again irrigated. The knee was again taken through range of motion and found to be stable throughout all range of motion of 0-130, and the patella tracked normally. The fascia was then closed with 0 Vicryl followed by #2 strata fix suture. The subcutaneous tissue was closed with 3-0 Vicryl and 3-0 strata fix. Exofin glue was used for the skin and placed with the knee in flexion. After the glue had dried, and Optafoam silver impregnated dressing was applied. The patient was then transferred to recovery room in stable condition. The assistant chief of police CIERA Pavon was required due the complexity surgery and the need for a skilled surgical brace maker. She assisted in positioning, draping, retraction, and closure of the wound.
[2022-04-10] MEDS ORDERED: LACTATED RINGERS 1,000 ML IV ONE (13:29)
[2022-04-10] MEDS ORDERED: HYDROcodone/APAP 5-325MG 1 EACH TAB PO PRN (13:38)
[2022-04-10] MEDS ORDERED: hydrOXYzine pamoate 25 MG CAP PO PRN (13:38)
[2022-04-10] MEDS ORDERED: HYDROmorphone 0.5 MG/0.5 ML SYRINGE IVP PRN ×3 (13:38)
[2022-04-10] MEDS ORDERED: NALOXONE 0.4 MG/ML 1 ML VIAL IV PRN (13:38)
[2022-04-10] MEDS ORDERED: ROPIVACAINE 0.2%-NS ON-Q PUMP 1,090 MG, EMPTY PAIN BALL 1 EACH MISCELLANE PRN (14:30)
[2022-04-10] MEDS: HYDROcodone/APAP 5-325MG 1 EACH TAB PO PRN ×2 (15:21→21:13)
[2022-04-10] MEDS ORDERED: CALCIUM CARBONATE 500 MG CHEWABLE PO PRN ×2 (16:43→16:49)
[2022-04-10] MEDS ORDERED: BUTALB/APAP/CAFF 50-325-40MG TAB PO PRN (16:43)
--- NOTE | 2022-04-10 18:59 | XR ---
EXAMINATION TYPE: XR knee limited RT DATE OF EXAM: 04/10/2022 COMPARISON: NONE HISTORY: Postop TECHNIQUE: 2 views FINDINGS: There is right knee prosthesis. Components are in anatomic position. IMPRESSION: No complicating process.
[2022-04-10] MEDS ORDERED: SENNOSIDES-DOCUSATE SODIUM 1 EACH TAB PO SCH (21:00)
[2022-04-10] MEDS ORDERED: LATANOPROST 0.005% OPHTH DROPS 2.5 ML BTL BOTH EYES SCH (21:00)
[2022-04-10] MEDS ORDERED: RIVAROXABAN 10 MG TAB PO SCH (22:00)
[2022-04-11] MEDS: HYDROcodone/APAP 5-325MG 1 EACH TAB PO PRN ×2 (03:51→12:07)
[2022-04-11] MEDS ORDERED: KETOROLAC 15 MG/ML 1 ML VIAL IVP STA (07:22)
[2022-04-11 07:39] VITALS: BP 93/47; PULSE 63; RESP 23; TEMP 97.6
--- NOTE | 2022-04-11 07:50 | P.PN ---
Subjective Progress Note Date: 04/11/22 Principal diagnosis: Primary osteoarthritis right knee. Status post total right knee arthroplasty. This is a 81-year-old male who is postop day #1 status post right knee arthroplasty. His main concern today is the severe pain in his right groin which radiates into the scrotum. He states that in the middle the night they put a pad under his right hip and leg to keep his heel off the bed. He states that he very quickly developed this right groin pain. He denies numbness and tingling down the leg. He has had no fever or chills. He is having minimal pain to the knee. Objective - Vital Signs Vital signs: Vital Signs Temp 97.6 F 04/11/22 07:39 Pulse 63 04/11/22 07:39 Resp 23 04/11/22 07:39 BP 93/47 04/11/22 07:39 Pulse Ox 100 04/11/22 07:39 FiO2 Intake & Output 04/10/22 04/11/22 04/11/22 18:59 06:59 18:59 Intake Total 1251 Output Total 30 200 Balance 1221 -200 Weight 78.93 kg Intake: IV 1251 Output: Urine 200 Estimated Blood Loss 30 - Exam This is a pleasant 81-year-old male in no acute distress. He is alert and oriented 3. Exam of the right lower extremity reveals that his knee dressing is clean, dry and intact. He has mild soft tissue swelling. No erythema. He has full foot and ankle motion without difficulty or pain. There is mild pain with motion of the right hip. Neurovascular status to the lower extremity is intact. Assessment and Plan (1) Primary localized osteoarthritis of right knee Current Visit: Yes Status: Acute Code(s): M17.11 - UNILATERAL PRIMARY OSTEOARTHRITIS, RIGHT KNEE SNOMED Code(s): 368173756360426 (2) Status post total knee replacement, right Current Visit: Yes Status: Acute Code(s): Z96.651 - PRESENCE OF RIGHT ARTIFICIAL KNEE JOINT SNOMED Code(s): 8299989820865 (3) Right groin pain Current Visit: Yes Status: Acute Code(s): R10.31 - RIGHT LOWER QUADRANT PAIN SNOMED Code(s): 45028161187715828 Plan: The clinical findings are discussed with the patient. We discussed the possibility of low back radiculopathy. I have ordered one dose of Toradol. We'll increase his Sparks to 7.5 mg. We would like to discharge him to home today if his pain improves.
[2022-04-11] MEDS ORDERED: PANTOPRAZOLE 40 MG TABLET PO SCH (09:00)
[2022-04-11] MEDS ORDERED: CYANOCOBALAMIN 500 MCG TAB PO SCH (09:00)
[2022-04-11] MEDS ORDERED: RIVAROXABAN 10 MG TAB PO SCH (09:00)
[2022-04-11] MEDS ORDERED: MAGNESIUM OXIDE 400 MG TAB PO SCH (09:00)
[2022-04-11] MEDS ORDERED: VIT A,C & E-LUTEIN-MINERALS 1 EACH TAB PO SCH (09:00)
[2022-04-11 09:10] LABS: HGB 12.4 g/dL (13.0-17.0); MCH 33.2 pg (27.0-32.0); MCHC 34.4 g/dL (32.0-37.0); MCV 96.5 fL (80.0-97.0); Mean Platelet Volume 9.9 fL (9.5-12.2); NRBC Per 100 WBC 0 /100 WBCS (0.0-0.0); Platelet Count 147 X 10*3/uL (140-440); RBC 3.73 X 10*6/uL (4.40-5.60); RDW 12.4 % (11.5-14.5); WBC 10.89 X 10*3/uL (4.50-10.00)
[2022-04-11 10:06] LABS: Basophils # (M) 0.11 X 10*3/uL (0.00-0.10); Eosinophils # (M) 0.11 X 10*3/uL (0.04-0.35); Lymphocytes # (M) 0.65 X 10*3/uL (0.90-5.00); Monocytes # (M) 0.87 X 10*3/uL (0.20-1.00); Neutrophils # (M) 9.15 X 10*3/uL (2.00-8.90); Neutrophils % (M) 84 %
--- NOTE | 2022-04-11 10:26 | CONS ---
CONSULTATION DATE OF SERVICE: 04/10/2022 REASON FOR CONSULTATION: Advice regarding GERD and other medical issues, requested by Orthopedic Surgery. HISTORY OF PRESENT ILLNESS: This 81-year-old gentleman with a past medical history of DJD and GERD, being followed by Dr. Sony Brennan in the outpatient setting, was admitted after right total knee joint arthroplasty. There is no history of any fever, rigors or chills. No history of headache, loss of consciousness, seizures at this time. PAST MEDICAL HISTORY: History of GERD, history of DJD, history of knee surgeries. HOME MEDICATIONS: Reviewed. They include latanoprost, butalbital. Doses and the rest of the medications are reviewed. ALLERGIES: NONE. FAMILY HISTORY: No history of heart disease or strokes in the family. SOCIAL HISTORY: Previous history of smoking. REVIEW OF SYSTEMS: Fourteen-point review of systems negative except as mentioned earlier. PHYSICAL EXAMINATION: Pulse is 88, blood pressure 131/80, respirations 16. HEENT: Conjunctivae normal. NECK: No jugular venous distention. CARDIOVASCULAR: S1, S2 muffled. RESPIRATION: Breath sounds diminished at the bases. No rhonchi. No crackles. ABDOMEN: Soft, nontender. LEGS: Status post surgery. NERVOUS SYSTEM: No focal deficit. SKIN: No ulcer, rash, bleeding. JOINTS: No active deforming arthropathy. LABS: The previous labs are reviewed. Most recent labs in the computer are normal. ASSESSMENT: 1. Status post right total knee arthroplasty. 2. Gastroesophageal reflux disease. 3. History of degenerative joint disease. 4. History of nicotine dependence. RECOMMENDATIONS AND DISCUSSION: In this 81-year-old gentleman who presented after surgery, at this time I recommend to continue the current medications, continue symptomatic treatment. I would also recommend resuming the home medications, DVT prophylaxis, incentive spirometry. Will follow the patient closely with you. Pain management. Patient may be asked to follow up with Dr. Brennan closely after discharge. Thank you for letting us participate in the care of this patient. Medication reconciliation will be done once they are confirmed by the tech. SAILAJA / ALEXSANDRA: [id number] /
--- NOTE | 2022-04-11 10:29 | P.DS ---
Providers Expected date of discharge: 04/11/22 Attending physician: Christopher Lu Consults: 04/10/22 13:46 Consult Physician Routine Consulting Provider: Isabella Styles Consult Reason/Comments: medical management Do you want consulting provider notified?: Yes Primary care physician: Sony Brennan - Discharge Diagnosis(es) (1) Primary localized osteoarthritis of right knee Current Visit: Yes Status: Acute (2) Status post total knee replacement, right Current Visit: Yes Status: Acute (3) Right groin pain Current Visit: Yes Status: Acute Hospital Course: This is a 81-year-old male with history of degenerative arthritis of the right knee. The patient has failed conservative outpatient treatment and elects to proceed with total right knee arthroplasty. The patient is evaluated by the primary care physician and cleared for surgery. The patient is admitted to [facility] on 04/10/2022 for total right knee arthroplasty. The procedure is performed without complication or sequelae. The patient is doing well postoperatively. Vital signs and labs are stable. The patient is discharged to home today in good condition. Please see med rec for accurate list of home medications. Patient Condition at Discharge: Good Plan - Discharge Summary Discharge Rx Participant: No New Discharge Prescriptions: New HYDROcodone/APAP 7.5-325MG [[place] 7.5-325] 1 - 2 tab PO Q6HR PRN #32 tab PRN Reason: Pain Sennosides-Docusate Sodium [Senokot-S] 2 tab PO HS PRN #30 tablet PRN Reason: Constipation Rivaroxaban [Xarelto] 10 mg PO DAILY 30 Days #30 tab Ondansetron Odt [Zofran Odt] 4 mg PO Q8HR PRN 1 Days #10 tab PRN Reason: Nausea No Action Latanoprost Ophth [Xalatan 0.005%] 1 drop BOTH EYES HS Butalb/APAP/Caff 50-325-40Mg [Fioricet 50-325-40] 1 tab PO QID PRN PRN Reason: Migraine Headache B Complex-Vit C-Vit E-Zinc [Z-Bec] 1 tab PO DAILY Turmeric Root Extract [Turmeric] 500 mg PO DAILY Cinnamon Bark [Cinnamon] 2,000 mg PO DAILY Cider Vinegar [Apple Cider Vinegar] 1,200 mg PO DAILY flaxseed oiL [Flaxseed Oil] 1,200 mg PO DAILY Calcium Carbonate [Tums] 500 - 1,000 mg PO QID PRN PRN Reason: Heartburn Soy Lethicin 1,200 mg PO DAILY Pantoprazole Sodium [Protonix] 40 mg PO DAILY Magnesium 1 tab PO DAILY Ibuprofen [Motrin Ib] 200 - 400 mg PO Q6H PRN PRN Reason: Pain Cyanocobalamin (Vitamin B-12) [Vitamin B12] 1 tab PO DAILY Discharge Medication List Butalb/APAP/Caff 50-325-40Mg [Fioricet 50-325-40] 1 tab PO QID PRN 03/14/17 [History] Latanoprost Ophth [Xalatan 0.005%] 1 drop BOTH EYES HS 03/14/17 [History] B Complex-Vit C-Vit E-Zinc [Z-Bec] 1 tab PO DAILY 04/28/20 [History] Calcium Carbonate [Tums] 500 - 1,000 mg PO QID PRN 04/28/20 [History] Cider Vinegar [Apple Cider Vinegar] 1,200 mg PO DAILY 04/28/20 [History] Cinnamon Bark [Cinnamon] 2,000 mg PO DAILY 04/28/20 [History] Soy Lethicin 1,200 mg PO DAILY 04/28/20 [History] Turmeric Root Extract [Turmeric] 500 mg PO DAILY 04/28/20 [History] flaxseed oiL [Flaxseed Oil] 1,200 mg PO DAILY 04/28/20 [History] Cyanocobalamin (Vitamin B-12) [Vitamin B12] 1 tab PO DAILY 04/06/22 [History] Ibuprofen [Motrin Ib] 200 - 400 mg PO Q6H PRN 04/06/22 [History] Magnesium 1 tab PO DAILY 04/06/22 [History] Pantoprazole Sodium [Protonix] 40 mg PO DAILY 04/06/22 [History] Ondansetron Odt [Zofran Odt] 4 mg PO Q8HR PRN 1 Days #10 tab 04/10/22 [Rx] Rivaroxaban [Xarelto] 10 mg PO DAILY 30 Days #30 tab 04/10/22 [Rx] Sennosides-Docusate Sodium [Senokot-S] 2 tab PO HS PRN #30 tablet 04/10/22 [Rx] HYDROcodone/APAP 7.5-325MG [[place] 7.5-325] 1 - 2 tab PO Q6HR PRN #32 tab 04/11/22 [Rx] Follow up Appointment(s)/Referral(s): [facility] [NON-STAFF] - As Needed (Supplier of CPM) [facility], [NON-STAFF] - 1-2 Days Christopher Lu DO [Doctor of Osteopathic Medicine] - 2 Weeks Activity/Diet/Wound Care/Special Instructions: Weight bear as tolerated on operative knee with a walker. Keep operative dressing intact for 7-10 days. May shower over dressing. Take Xarelto as prescribed for blood clot prevention due to history of DVT. Take pain medications as prescribed. Follow-up in the office in [address] Lu. Call the office with any questions or concerns, Discharge Disposition: HOME WITH HOME HEALTH SERVICES
--- NOTE | 2022-04-11 18:34 | P.CONS ---
History of Present Illness - History of Present Illness Please consider this note as a progress note This is a pleasant 81 years old male with past medical history of GERD and osteoarthritis presents with severe his arthritis of the right knee status post total knee replacement. Today he was lying in bed comfortable, with pain in his right knee is controlled, he denies any physical complaints for me, is fully awake and oriented, comfortable, not in distress. No chest pain or dyspnea. No abdominal or urinary complaints. No vomiting. Patient's anticipated to be discharged home soon. He states he is doing well and he wants to go home. Hemodynamically stable Labs reviewed including WBCs 10.8, hemoglobin 12.4 and platelet count 147. Patient also on Xarelto Past Medical History Past Medical History: GERD/Reflux, Osteoarthritis (OA) Additional Past Medical History / Comment(s): total knee 04/10/22 History of Any Multi-Drug Resistant Organisms: None Reported Additional Past Surgical History / Comment(s): Arthroscopic knee surgeriesx4. Tyrone ing hernia; repair of mesh later. Fx Lt Clavicle surg. Rt rotator cuff surg. Total Lt knee. TOtal left hip. Past Anesthesia/Blood Transfusion Reactions: No Reported Reaction Smoking Status: Former smoker - Past Family History Mother Family Medical History: No Reported History Medications and Allergies Home Medications Medication Instructions Recorded Confirmed Type Butalb/APAP/Caff 50-325-40Mg 1 tab PO QID PRN 03/14/17 04/10/22 History [Fioricet 50-325-40] Latanoprost Ophth [Xalatan 0.005%] 1 drop BOTH EYES HS 03/14/17 04/10/22 History B Complex-Vit C-Vit E-Zinc [Z-Bec] 1 tab PO DAILY 04/28/20 04/06/22 History Calcium Carbonate [Tums] 500 - 1,000 mg PO QID PRN 04/28/20 04/06/22 History Cider Vinegar [Apple Cider Vinegar] 1,200 mg PO DAILY 04/28/20 04/06/22 History Cinnamon Bark [Cinnamon] 2,000 mg PO DAILY 04/28/20 04/06/22 History Soy Lethicin 1,200 mg PO DAILY 04/28/20 04/06/22 History Turmeric Root Extract [Turmeric] 500 mg PO DAILY 04/28/20 04/06/22 History flaxseed oiL [Flaxseed Oil] 1,200 mg PO DAILY 04/28/20 04/06/22 History Cyanocobalamin (Vitamin B-12) 1 tab PO DAILY 04/06/22 04/06/22 History [Vitamin B12] Ibuprofen [Motrin Ib] 200 - 400 mg PO Q6H PRN 04/06/22 04/06/22 History Magnesium 1 tab PO DAILY 04/06/22 04/06/22 History Pantoprazole Sodium [Protonix] 40 mg PO DAILY 04/06/22 04/06/22 History Ondansetron Odt [Zofran Odt] 4 mg PO Q8HR PRN 1 Days #10 tab 04/10/22 Rx Rivaroxaban [Xarelto] 10 mg PO DAILY 30 Days #30 tab 04/10/22 Rx Sennosides-Docusate Sodium 2 tab PO HS PRN #30 tablet 04/10/22 Rx [Senokot-S] HYDROcodone/APAP 7.5-325MG [[place] 1 - 2 tab PO Q6HR PRN #32 tab 04/11/22 Rx 7.5-325] Allergies Allergy/AdvReac Type Severity Reaction Status Date / Time No Known Allergies Allergy Verified 04/10/22 10:04 Physical Exam Vitals: Vital Signs Temp Pulse Pulse Resp BP BP Pulse Ox 04/11/22 08:00 63 23 04/11/22 07:39 97.6 F 63 23 93/47 100 04/11/22 00:20 98.4 F 64 14 97/59 94 L 04/10/22 20:00 97.9 F 80 16 100/63 93 L 04/10/22 16:03 79 135/69 95 04/10/22 15:48 65 129/71 96 04/10/22 15:32 58 L 120/72 96 04/10/22 15:18 58 L 129/89 96 04/10/22 15:03 53 L 133/73 97 04/10/22 14:50 51 L 147/69 98 04/10/22 14:38 97.3 F L 88 16 131/86 97 04/10/22 14:13 49 L 16 123/64 97 04/10/22 13:58 45 L 16 121/62 97 04/10/22 13:43 45 L 16 120/62 97 04/10/22 13:28 51 L 16 119/64 95 04/10/22 10:45 56 L 16 115/62 97 04/10/22 10:02 97.7 F 75 18 149/85 95 Intake and Output 04/10/22 04/11/22 04/11/22 22:59 06:59 14:59 Output Total 200 Balance -200 Output: Urine 200 Other: Voiding Method Urinal GENERAL: The patient is alert and oriented x3, not in any acute distress. Well developed, well nourished. HEENT: Pupils are round and equally reacting to light. EOMI. No scleral icterus. No conjunctival pallor. Normocephalic, atraumatic. No pharyngeal erythema. No thyromegaly. CARDIOVASCULAR: S1 and S2 present. No murmurs, rubs, or gallops. PULMONARY: Chest is clear to auscultation, no wheezing or crackles. ABDOMEN: Soft, nontender, nondistended, normoactive bowel sounds. No palpable or ganomegaly. MUSCULOSKELETAL: No joint swelling or deformity. -EXTREMITIES: No cyanosis, clubbing, or pedal edema. Surgical wound on the right knee with dressing in place, rest of exam is deferred to surgery team NEUROLOGICAL: Gross neurological examination did not reveal any focal deficits. SKIN: No rashes. no petechiae. Results CBC & Chem 7: 04/11/22 05:41 Labs: Abnormal Lab Results - Last 24 Hours (Table) 04/11/22 Range/Units 05:41 WBC 10.89 H (4.50-10.00) X 10*3/uL RBC 3.73 L (4.40-5.60) X 10*6/uL Hgb 12.4 L (13.0-17.0) g/dL Hct 36.0 L (39.6-50.0) % MCH 33.2 H (27.0-32.0) pg Assessment and Plan Assessment: Osteoarthritis status post right knee total arthroplasty History of GERD Mild leukocytosis and anemia which is expected from postoperative Plan: This is a pleasant 81 years old male with right knee replacement surgery. Patient looks comfortable. We recommend patient follow up with PCP in one week after discharge and he was instructed the same We defer pain management and DVT prophylaxis to primary team Thank you for consulting us
--- NOTE | 2022-04-17 09:26 | P.PN ---
Progress Note - Text Progress Note Date: 04/11/22 Postoperative day # 1 status post total knee arthroplasty, and adductor canal catheter placed for postoperative analgesia, currently at ropivacaine 0.2% 8 mL per hour and continuous infusion, visual analogue scale is 3/10, patient using oral pain medication for breakthrough pain. Assessment and plan= Acute postoperative pain, adductor canal catheter for pain control, pain is well controlled we'll continue the same management.
== END 2022-04-11 12:13 | disposition home health service (06) ==
LOC: OR 09:19 → 4SSUR 13:23 → OR 04-11 12:13
PROVIDERS: ATTEND Orthopaedic Surgery
DX: M17.11 Unilateral primary osteoarthritis, right knee (principal); J45.909 Unspecified asthma, uncomplicated; K21.9 Gastro-esophageal reflux disease without esophagitis; Q23.1 Congenital insufficiency of aortic valve; H91.90 Unspecified hearing loss, unspecified ear; Z96.652 Presence of left artificial knee joint; Z96.642 Presence of left artificial hip joint; Z85.828 Personal history of other malignant neoplasm of skin; Z87.891 Personal history of nicotine dependence; Z79.899 Other long term (current) drug therapy; Z79.01 Long term (current) use of anticoagulants; Z98.890 Other specified postprocedural states
CPT/HCPCS: 97161; 64999; 64448; 76942; 88305; 85025; 88311; 73560; 27447; C1713; C1776; J2250; J1100; J0690 ×3; J2405; J3010; J2795 ×2; J1885; J1170

== ENCOUNTER 2022-11-14 07:33 | Day surgery (SDC) | payer MEDICARE, OTHER ==
[2022-11-12 14:59] VITALS: BMI 26.6
[~2022-11-14 07:33] MED LIST changes: -ACETAMINOPHEN TAB 500 MG TAB PO PRN; -DEXAMETHASONE SOD PHOSPHATE 4 MG/ML 1 ML VIAL IV ONE; -GABAPENTIN 300 MG CAP PO PRN; -HYDROmorphone 0.5 MG/0.5 ML SYRINGE IVP PRN; -MELOXICAM 7.5 MG TAB PO PRN; -ONDANSETRON 4 MG/2 ML VIAL IVP ONE; -ONDANSETRON 4 MG/2 ML VIAL IVP PRN; -TRANEXAMIC ACID IN NACL,ISO-OS 1,000 MG in SALINE 1 100ML.BAG IVPB PRN
--- NOTE | 2022-11-14 07:51 | P.GSHP ---
History of Present Illness H&P Date: 11/14/22 CHIEF COMPLAINT: Colon screen HISTORY OF PRESENT ILLNESS: The patient is a 82-year-old male who presents for colon screen. Lower endoscopy was offered for further evaluation and management. PAST MEDICAL HISTORY: Please see list. PAST SURGICAL HISTORY: Please see list. MEDICATIONS: Please see list. ALLERGIES: Please see list. SOCIAL HISTORY: No illicit drug use FAMILY HISTORY: No reports of Crohn disease or ulcerative colitis. REVIEW OF ORGAN SYSTEMS: CONSTITUTIONAL: No reports of fevers or chills. PHYSICAL EXAM: VITAL SIGNS: Stable GENERAL: Well-developed pleasant in no acute distress. HEENT: No scleral icterus. Extraocular movements grossly intact. Moist buccal mucosa. NECK: Supple without lymphadenopathy. CHEST: Unlabored respirations. Equal bilateral excursions. CARDIOVASCULAR: Regular rate and rhythm. Distal 2+ pulses. ABDOMEN: Soft, nontender, nondistended. MUSCULOSKELETAL: No clubbing, cyanosis, or edema. ASSESSMENT: 1. Colon screen. PLAN: 1. Recommend proceeding with a lower endoscopy Past Medical History Past Medical History: Deep Vein Thrombosis (DVT), GERD/Reflux, Osteoarthritis (OA) Additional Past Medical History / Comment(s): severe constipation,hx dvt after hip replacement History of Any Multi-Drug Resistant Organisms: None Reported Additional Past Surgical History / Comment(s): Arthroscopic knee surgeriesx4. Tyrone ing hernia; repair of mesh later. Fx Lt Clavicle surg. Rt rotator cuff surg. tyrone total knees, total left hip. Past Anesthesia/Blood Transfusion Reactions: No Reported Reaction Smoking Status: Former smoker - Past Family History Mother Family Medical History: No Reported History Medications and Allergies Home Medications Medication Instructions Recorded Confirmed Type Soy Lethicin 1,200 mg PO DAILY 04/28/20 11/12/22 History Turmeric Root Extract [Turmeric] 500 mg PO DAILY 04/28/20 11/12/22 History Cyanocobalamin (Vitamin B-12) 1 tab PO DAILY 04/06/22 11/12/22 History [Vitamin B12] Ibuprofen [Motrin Ib] 200 - 400 mg PO Q6H PRN 04/06/22 11/12/22 History Sennosides-Docusate Sodium 2 tab PO HS PRN #30 tablet 04/10/22 11/12/22 Rx [Senokot-S] Butalb/APAP/Caff 50-325-40Mg 1 tab PO Q4H PRN 11/12/22 11/12/22 History [Fioricet 50-325-40] Celecoxib [CeleBREX] 200 mg PO DAILY PRN 11/12/22 11/12/22 History Latanoprost [Latanoprost 0.005%] 1 drop BOTH EYES HS 11/12/22 11/12/22 History Omeprazole/Sodium Bicarbonate 1 each PO DAILY 11/12/22 11/12/22 History [Zegerid 40 mg Capsule] Pyridoxine HCl (Vitamin B6) 100 mg PO DAILY 11/12/22 11/12/22 History [Vitamin B-6] Allergies Allergy/AdvReac Type Severity Reaction Status Date / Time No Known Allergies Allergy Verified 11/12/22 14:45
[2022-11-14 08:12] VITALS: TEMP 98.3
[2022-11-14] MEDS ORDERED: PROPOFOL 10 MG/ML 20 ML VIAL IV ONE (08:44)
--- NOTE | 2022-11-14 09:18 | P.PCN ---
Date of Procedure: 11/14/22 Description of Procedure: PREOPERATIVE DIAGNOSIS: Personal history of colon polyps Colonoscopy screening POSTOPERATIVE DIAGNOSIS: Tubular adenoma ascending colon Tubular adenoma rectum Sigmoid diverticulosis Internal hemorrhoids, grade 2 OPERATION: Colonoscopy to the ileocecal valve and appendiceal orifice, cecum Colonoscopy with hot snare polypectomy SURGEON: Yudelka Muro MD. ANESTHESIA: MAC. INDICATIONS: The patient is an 82-year-old male who presents personal history of colon polyps. Last colonoscopy 5 years. Benefits and risks were described and informed consent was obtained. DESCRIPTION OF PROCEDURE: The patient had undergone Sutab prep. The patient had been brought into the operating room and laid in the left lateral decubitus position. After adequate intravenous sedation, the rectum was examined with 2% lidocaine jelly. The prostate fossa was unremarkable. No external hemorrhoids were encountered. The rectal tone was within normal limits. No lesions were palpated in the rectal vault. An Olympus colonoscope was advanced until the cecum, ileocecal valve and appendiceal orifice were clearly viewed. The prep was fair. Sigmoid diverticulosis was encountered with scattered diverticula throughout the colon. Colonic polyps were found and removed. No evidence of focal colitis was found. Retroflexion of the scope demonstrated grade 2 internal hemorrhoids without active bleeding or inflammation. The colon was desufflated. The patient had tolerated the procedure well. Withdrawal time was over 6 minutes. FINDINGS: Aronchick preparation quality scale 3 (1-5) Internal hemorrhoids, grade 2 No external hemorrhoids No arteriovenous malformations. Sigmoid diverticulosis with scattered diverticula Removal of 2 polyps: - Snare polypectomy 5 cm from the anal verge, 4 mm tubulovillous adenoma, rectum -- not retrieved - Snare polypectomy at descending colon, 6 mm flat villous adenoma polyp. No focal colitis. RECOMMENDATIONS: Repeat colonoscopy 3 years, 2025 Plan - Discharge Summary Discharge Rx Participant: No New Discharge Prescriptions: Continue Turmeric Root Extract [Turmeric] 500 mg PO DAILY Soy Lethicin 1,200 mg PO DAILY Ibuprofen [Motrin Ib] 200 - 400 mg PO Q6H PRN PRN Reason: Pain Celecoxib [CeleBREX] 200 mg PO DAILY PRN PRN Reason: Pain Latanoprost [Latanoprost 0.005%] 1 drop BOTH EYES HS Pyridoxine HCl (Vitamin B6) [Vitamin B-6] 100 mg PO DAILY Cyanocobalamin (Vitamin B-12) [Vitamin B-12] 1 tab PO DAILY Sennosides-Docusate Sodium [Senokot-S] 2 tab PO HS PRN #30 tablet PRN Reason: Constipation Omeprazole/Sodium Bicarbonate [Zegerid 40 mg Capsule] 1 each PO DAILY Butalb/APAP/Caff 50-325-40Mg [Fioricet 50-325-40] 1 tab PO Q4H PRN PRN Reason: Headache Discharge Medication List Soy Lethicin 1,200 mg PO DAILY 04/28/20 [History] Turmeric Root Extract [Turmeric] 500 mg PO DAILY 04/28/20 [History] Cyanocobalamin (Vitamin B-12) [Vitamin B-12] 1 tab PO DAILY 04/06/22 [History] Ibuprofen [Motrin Ib] 200 - 400 mg PO Q6H PRN 04/06/22 [History] Sennosides-Docusate Sodium [Senokot-S] 2 tab PO HS PRN #30 tablet 04/10/22 [Rx] Butalb/APAP/Caff 50-325-40Mg [Fioricet 50-325-40] 1 tab PO Q4H PRN 11/12/22 [History] Celecoxib [CeleBREX] 200 mg PO DAILY PRN 11/12/22 [History] Latanoprost [Latanoprost 0.005%] 1 drop BOTH EYES HS 11/12/22 [History] Omeprazole/Sodium Bicarbonate [Zegerid 40 mg Capsule] 1 each PO DAILY 11/12/22 [History] Pyridoxine HCl (Vitamin B6) [Vitamin B-6] 100 mg PO DAILY 11/12/22 [History] Follow up Appointment(s)/Referral(s): Yudelka Muro MD [STAFF PHYSICIAN] - As Needed Patient Instructions/Handouts: Diverticulosis Diet (GEN), Diverticulosis (ED) Activity/Diet/Wound Care/Special Instructions: Repeat colonoscopy 3 years, 2025 Discharge Disposition: HOME SELF-CARE
[2022-11-14 09:26] VITALS: BP 113/68; PULSE 65; RESP 15
== END 2022-11-14 09:57 | disposition home or self-care (01) ==
LOC: ORWHC2ENDO 07:33
PROVIDERS: ATTEND Surgery Plastic and Reconstructive Surgery
DX: Z12.11 Encounter for screening for malignant neoplasm of colon (principal); K51.40 Inflammatory polyps of colon without complications; K57.30 Diverticulosis of large intestine without perforation or abscess without bleeding; K64.8 Other hemorrhoids; M19.90 Unspecified osteoarthritis, unspecified site; Z79.1 Long term (current) use of non-steroidal anti-inflammatories (NSAID); Z86.718 Personal history of other venous thrombosis and embolism; Z87.19 Personal history of other diseases of the digestive system; Z87.891 Personal history of nicotine dependence
CPT/HCPCS: 88305; 45385; J2704

== ENCOUNTER 2023-01-19 12:15 | Emergency (ER) | payer MEDICARE, OTHER ==
[2023-01-19 12:25] VITALS: TEMP 97.9
[2023-01-19 13:10] LABS: Basophils % (A) 1 %; Eosinophils # (A) 0.2 k/uL (0-0.7); Eosinophils % (A) 3 %; HCT 47.6 % (39.0-53.0); HGB 16.7 gm/dL (13.0-17.5); Lymphocytes # (A) 1.3 k/uL (1.0-4.8); Lymphocytes % (A) 21 %; MCH 33.6 pg (25.0-35.0); MCHC 35.1 g/dL (31.0-37.0); Mean Platelet Volume 7.4; Monocytes # (A) 0.6 k/uL (0-1.0); Monocytes % (A) 9 %; Neutrophils # (A) 4.1 k/uL (1.3-7.7); Neutrophils % (A) 65 %; Platelet Count 171 k/uL (150-450); RBC 4.96 m/uL (4.30-5.90); RDW 12.5 % (11.5-15.5); WBC 6.2 k/uL (3.8-10.6)
--- NOTE | 2023-01-19 13:13 | ED ---
Abdominal Pain HPI - General Chief Complaint: Abdominal Pain Stated Complaint: Constipation Time Seen by Provider: 01/19/23 12:28 Source: patient, RN notes reviewed Mode of arrival: ambulatory Limitations: no limitations - History of Present Illness Initial Comments: Patient is an 82-year-old male presenting to the emergency room with complaints of lower abdominal cramping and inability to bowel movement 4 days despite regular use of stool softeners and multiple laxatives utilize last night. He reports some loose stool-like production early this morning but denies any formed stool with persistent lower abdominal cramping. He denies any nausea or vomiting. He reports that he developed severe constipation after hip replacement last year consequently he underwent workup with Dr. Fontana and colonoscopy with Dr. Muro. He is planned for surgical intervention in early March for colonic torsion and reports prior to his severe constipation initial diagnosis he has not had abdominal pain as severe as today. He denies any other complaints or concerns including any chest pain, shortness of breath, upper abdominal pain, blood in his stool, hematuria, dysuria, back pain, headaches, dizziness, fevers or chills. He has a past medical history in addition to his constipation significant for GERD, arthritis and DVT. - Related Data Home Medications Medication Instructions Recorded Confirmed Soy Lethicin 1,200 mg PO DAILY 04/28/20 11/14/22 Turmeric Root Extract [Turmeric] 500 mg PO DAILY 04/28/20 11/14/22 Cyanocobalamin (Vitamin B-12) 1 tab PO DAILY 04/06/22 11/14/22 [Vitamin B-12] Ibuprofen [Motrin Ib] 200 - 400 mg PO Q6H PRN 04/06/22 11/14/22 Butalb/APAP/Caff 50-325-40Mg 1 tab PO Q4H PRN 11/12/22 11/14/22 [Fioricet 50-325-40] Celecoxib [CeleBREX] 200 mg PO DAILY PRN 11/12/22 11/14/22 Latanoprost [Latanoprost 0.005%] 1 drop BOTH EYES HS 11/12/22 11/14/22 Omeprazole/Sodium Bicarbonate 1 each PO DAILY 11/12/22 11/14/22 [Zegerid 40 mg Capsule] Pyridoxine HCl (Vitamin B6) 100 mg PO DAILY 11/12/22 11/14/22 [Vitamin B-6] Previous Rx's Medication Instructions Recorded Sennosides-Docusate Sodium 2 tab PO HS PRN #30 tablet 04/10/22 [Senokot-S] Allergies Allergy/AdvReac Type Severity Reaction Status Date / Time No Known Allergies Allergy Verified 11/14/22 08:04 Review of Systems ROS Statement: Those systems with pertinent positive or pertinent negative responses have been documented in the HPI. ROS Other: All systems not noted in ROS Statement are negative. Past Medical History Past Medical History: Deep Vein Thrombosis (DVT), GERD/Reflux, Osteoarthritis ( OA) Additional Past Medical History / Comment(s): severe constipation,hx dvt after hip replacement History of Any Multi-Drug Resistant Organisms: None Reported Additional Past Surgical History / Comment(s): Arthroscopic knee surgeriesx4. Tyrone ing hernia; repair of mesh later. Fx Lt Clavicle surg. Rt rotator cuff surg. tyrone total knees, total left hip. Past Anesthesia/Blood Transfusion Reactions: No Reported Reaction Past Psychological History: No Psychological Hx Reported Smoking Status: Former smoker - Past Family History Mother Family Medical History: No Reported History General Exam - General Exam Comments Initial Comments: GENERAL: No acute distress, well developed, well nourished. HEENT: Normocephalic, atraumatic. Pupils equal, round, reactive to light. Moist mucous membranes. LUNGS: No respiratory distress. Clear to auscultation, no adventitious sounds, no use of accessory muscles. HEART: Regular rate and rhythm without murmur, rub, or gallop. ABDOMEN: Normal bowel sounds. Soft, non-tender, non-distended. no rebound tenderness. No guarding. BACK: Normal inspection. EXTREMITIES: No edema. No tenderness. Moves all extremities. NEUROLOGIC: Alert & oriented x 3. CN II-XII grossly intact. PSYCHIATRIC: Normal affect and behavior. DERMATOLOGIC: Skin intact, without rashes or lesions noted. Limitations: no limitations Course Vital Signs 01/19/23 01/19/23 12:22 15:32 Temperature 97.9 F Pulse Rate 65 71 Respiratory 16 18 Rate Blood Pressure 143/79 142/80 O2 Sat by Pulse 97 98 Oximetry Medical Decision Making - Medical Decision Making Was pt. sent in by a medical professional or institution (, PA, DERMATOLOGICAL SURGEON, urgent care, hospital, or half-way...) When possible be specific @ -No Did you speak to anyone other than the patient for history (EMS, parent, family, police, friend...)? What history was obtained from this source @ -No Did you review nursing and triage notes (agree or disagree)? Why? @ -I reviewed and agree with nursing and triage notes Were old charts reviewed (outside hosp., previous admission, EMS record, old EKG, old radiological studies, urgent care reports/EKG's, half-way records)? Report findings @ -Yes, I reviewed colonoscopy report from October 2022. Differential Diagnosis (chest pain, altered mental status, abdominal pain women, abdominal pain men, vaginal bleeding, weakness, fever, dyspnea, syncope, headache, dizziness, GI bleed, back pain, seizure, CVA, palpatations, mental health, musculoskeletal)? @ -Differential Abdominal Pain Men: Appendicitis, cholecystitis, diverticulosis, ischemic bowel, pancreatitis, hepatitis, UTI, gastroenteritis, AAA, incarcerated hernia, bowel obstruction, constipation, inflammatory bowel, hepatitis, peptic ulcer disease, splenic infarction, perforated viscus, testicular torsion, this is not meant to be an all-inclusive list EKG interpreted by me (3pts min.). @ -None done X-rays interpreted by me (1pt min.). @ -None done CT interpreted by me (1pt min.). @ -CT abdomen and pelvis without contrast: no inflammation, obstruction, free air or free fluid in the abdomen. Known aortic aneurysm noted at 4.5 cm. U/S interpreted by me (1pt. min.). @ -None done What testing was considered but not performed or refused? (CT, X-rays, U/S, labs)? Why? @ -None What meds were considered but not given or refused? Why? @ -None Did you discuss the management of the patient with other professionals (professionals i.e. , PA, DERMATOLOGICAL SURGEON, lab, RT, psych nurse, social service worker, sports writer, teacher, air defense artillery officer, case resolution specialist)? Give summary @ -No Was smoking cessation discussed for >3mins.? @ -No Was critical care preformed (if so, how long)? @ -No Were there social determinants of health that impacted care today? How? (Homelessness, low income, unemployed, alcoholism, drug addiction, transportation, low edu. Level, literacy, decrease access to med. care, detention, rehab)? @ -No Was there de-escalation of care discussed even if they declined (Discuss DNR or withdrawal of care, Hospice)? DNR status @ -No What co-morbidities impacted this encounter? (DM, HTN, Smoking, COPD, CAD, Cancer, CVA, ARF, Chemo, Hep., AIDS, mental health diagnosis, sleep apnea, morbid obesity)? @ -None Was patient admitted / discharged? Hospital course, mention meds given and route, prescriptions, significant lab abnormalities, going to OR and other pertinent info. @ -82-year-old male presenting to the emergency room with complaints of constipation and lower abdominal pain. History of colonic torsion with planned surgical intervention in March. High risk for obstruction. No other associated symptoms. Will obtain CMP, CBC and proceed with computed tomography scan of the abdomen. Reports pain levels are stable without nausea denies any analgesic or antiemetic needs. CBC, CMP, amylase and lipase all normal. Computed tomography scan of the abdomen reveals no acute abdominal process. No evidence of obstruction. Will proceed with milk of magnesia molasses enema for constipation the setting of lack of obstruction and known severe constipation history. No indication for further diagnostic imaging or laboratory studies. Good result from milk molasses enema. Long discussion with patient regarding constipation and plan for upcoming intervention with Dr. Muro. Encouraged continued use of stool softeners, fiber agents and good hydration. Questions and concerns answered. Return parameters to the emergency room discussed. 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 Undiagnosed new problem with uncertain prognosis? @ -No Drug Therapy requiring intensive monitoring for toxicity (Heparin, Nitro, Insulin, Cardizem)? @ -No Were any procedures done? @ -No Diagnosis/symptom? @ -Constipation Acute, or Chronic, or Acute on Chronic? @ -Acute on chronic Uncomplicated (without systemic symptoms) or Complicated (systemic symptoms)? @ -Uncomplicated Side effects of treatment? @ -No Exacerbation, Progression, or Severe Exacerbation? @ -No Poses a threat to life or bodily function? How? (Chest pain, [place], [place], pneumonia, PE, COPD, DKA, ARF, appy, cholecystitis, CVA, Diverticulitis, Homicidal, Suicidal, threat to staff... and all critical care pts) @ -No. Case discussed with Dr. Burden. - Lab Data Result diagrams: 01/19/23 13:00 01/19/23 13:35 Lab Results 01/19/23 01/19/23 Range/Units 13:00 13:35 WBC 6.2 (3.8-10.6) k/uL RBC 4.96 (4.30-5.90) m/uL Hgb 16.7 (13.0-17.5) gm/dL Hct 47.6 (39.0-53.0) % MCV 96.0 (80.0-100.0) fL MCH 33.6 (25.0-35.0) pg MCHC 35.1 (31.0-37.0) g/dL RDW 12.5 (11.5-15.5) % Plt Count 171 (150-450) k/uL MPV 7.4 Neutrophils % 65 % Lymphocytes % 21 % Monocytes % 9 % Eosinophils % 3 % Basophils % 1 % Neutrophils # 4.1 (1.3-7.7) k/uL Lymphocytes # 1.3 (1.0-4.8) k/uL Monocytes # 0.6 (0-1.0) k/uL Eosinophils # 0.2 (0-0.7) k/uL Basophils # 0.0 (0-0.2) k/uL Sodium 137 (137-145) mmol/L Potassium 4.6 (3.5-5.1) mmol/L Chloride 106 (98-107) mmol/L Carbon Dioxide 25 (22-30) mmol/L Anion Gap 6 mmol/L BUN 18 (9-20) mg/dL Creatinine 0.69 (0.66-1.25) mg/dL Est GFR (CKD-EPI)AfAm >90 (>60 ml/min/1.73 sqM) Est GFR (CKD-EPI)NonAf 90 (>60 ml/min/1.73 sqM) Glucose 94 (74-99) mg/dL Calcium 8.9 (8.4-10.2) mg/dL Total Bilirubin 0.7 (0.2-1.3) mg/dL AST 30 (17-59) U/L ALT 26 (4-49) U/L Alkaline Phosphatase 108 (38-126) U/L Total Protein 6.6 (6.3-8.2) g/dL Albumin 3.8 (3.5-5.0) g/dL Amylase 64 (30-110) U/L Lipase 223 (23-300) U/L Disposition Clinical Impression: Constipation Disposition: HOME SELF-CARE Condition: Stable Instructions (If sedation given, give patient instructions): Constipation (DC) Additional Instructions: Continue to stay well hydrated. To continue your stool softeners as needed. Avoid laxatives when possible. 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 Is patient prescribed a controlled substance at d/c from ED?: No Referrals: Sony Brennan MD [Primary Care Provider] - 1-2 days Time of Disposition: 15:27
[2023-01-19 13:58] LABS: ALT 26 U/L (4-49); AST 30 U/L (17-59); African American GFR (CKD) >90 (>60 ml/min/1.73 sqM); Albumin 3.8 g/dL (3.5-5.0); Alkaline Phosphatase 108 U/L (38-126); Amylase 64 U/L (30-110); Anion Gap 6 mmol/L; Blood Urea Nitrogen 18 mg/dL (9-20); Calcium 8.9 mg/dL (8.4-10.2); Carbon Dioxide 25 mmol/L (22-30); Chloride 106 mmol/L (98-107); Glucose 94 mg/dL (74-99); Lipase 223 U/L (23-300); Non-African American GFR(CKD) 90 (>60 ml/min/1.73 sqM); Potassium 4.6 mmol/L (3.5-5.1); Sodium 137 mmol/L (137-145); Total Bilirubin 0.7 mg/dL (0.2-1.3); Total Protein 6.6 g/dL (6.3-8.2)
--- NOTE | 2023-01-19 14:45 | CT ---
EXAMINATION TYPE: CT abdomen pelvis w con DATE OF EXAM: 01/19/2023 COMPARISON: 09/07/2019 HISTORY: Severe constipation. CT DLP: 875.1 mGycm Automated exposure control for dose reduction was used. TECHNIQUE: Helical acquisition of images was performed from the lung bases through the pelvis. CONTRAST: Performed without Oral Contrast and with IV Contrast, patient injected with 100ml mL of Isovue 300. FINDINGS: There are mild interstitial changes in the left lung base this 9 mm nodule which has been seen on jimenez or studies and is stable. The gallbladder is normal without distention, wall thickening, pericholecystic fluid or gallstones. There is no focal mass or organomegaly involving the solid visceral organs of the upper abdomen. The kidneys excrete contrast promptly and there is no solid renal mass or hydronephrosis. There is a large cortical cyst left kidney and prominent parapelvic cysts of both kidneys. The caliber the abdominal aorta is normal and there is no evidence of aneurysm. The bowel loops are normal in caliber and there is no dilatation or obstruction. No inflammatory peña ges are identified in the bowel wall or mesentery. There is moderate to marked diverticulosis of the descending and sigmoid colon. There is no free intraperitoneal air or fluid. There is no pelvic mass or adenopathy. There is prostatic enlargement and prostatic calcification whi ch has been noted previously. There is a left hip prosthesis. The soft tissues abdominal wall and pelvis are intact. There is 4.5 cm aneurysmal dilatation of the ascending thoracic aorta. IMPRESSION: 1. Stable nodule interstitial changes in the left lung base. 2. Aneurysmal dilatation of ascending thoracic aorta. 3. No acute changes within the abdomen. 4. Renal cysts as described above. 5. Prostatic hypertrophy. 6. Diverticulosis of the colon without CT evidence of diverticulitis.
[2023-01-19 15:33] VITALS: BP 142/80; PULSE 71; RESP 18
== END 2023-01-19 15:56 | disposition home or self-care (01) ==
LOC: EC 12:15
DX: K59.00 Constipation, unspecified (principal); K21.9 Gastro-esophageal reflux disease without esophagitis; M19.90 Unspecified osteoarthritis, unspecified site; Z86.718 Personal history of other venous thrombosis and embolism; Z87.891 Personal history of nicotine dependence; Z79.899 Other long term (current) drug therapy
CPT/HCPCS: 36415; 80053; 82150; 83690; 85025; 74177; 99284; Q9967

== ENCOUNTER → 2023-03-20 | Outpatient (CLI) | payer MEDICARE, OTHER ==
[2023-03-20 14:48] LABS: HCT 45.9 % (39.6-50.0); HGB 16.3 g/dL (13.0-17.0); MCHC 35.5 g/dL (32.0-37.0); MCV 92.9 fL (80.0-97.0); Mean Platelet Volume 9.8 fL (9.5-12.2); NRBC Per 100 WBC 0 /100 WBCS (0.0-0.0); Platelet Count 149 X 10*3/uL (140-440); RBC 4.94 X 10*6/uL (4.40-5.60); WBC 5.02 X 10*3/uL (4.50-10.00)
[2023-03-20 15:17] LABS: African American GFR (CKD) 93.3 (60.0-200.0); Anion Gap 11.9 mmol/L (10.00-18.00); BUN/Creat Ratio 24.64 Ratio (12.00-20.00); Blood Urea Nitrogen 22.1 mg/dL (9.0-27.0); Carbon Dioxide 22.9 mmol/L (20.0-27.5); Non-African American GFR(CKD) 80.5 (60.0-200.0)
== END | disposition home or self-care (01) ==
LOC: LABWHC1 09:39
PROVIDERS: ATTEND Surgery Plastic and Reconstructive Surgery
DX: K57.32 Diverticulitis of large intestine without perforation or abscess without bleeding (principal)
CPT/HCPCS: 36415; 80048; 85027

== ENCOUNTER 2023-03-28 09:07 | Inpatient (IN) | payer MEDICARE, OTHER ==
[2023-03-26 13:46] VITALS: BMI 25.9
[~2023-03-28 09:07] MED LIST changes: -LACTATED RINGERS 1,000 ML IV SCH
[2023-03-28] MEDS ORDERED: LACTATED RINGERS 1,000 ML IV ONE (09:35)
[2023-03-28] MEDS ORDERED: LIDOCAINE 2% INJ 20 MG/ML (2 ML VIAL) ONE (10:10)
[2023-03-28] MEDS ORDERED: PROPOFOL 10 MG/ML 20 ML VIAL IV ONE (10:10)
[2023-03-28] MEDS ORDERED: Antibiotics per Pharmacy 1 EACH MISC MISCELLANE PRN (11:35)
[2023-03-28] MEDS ORDERED: PEG 3350 (420 GM/BTL) + LYTES 4,000 ML BOTTLE PO ONE (11:35)
[2023-03-28] MEDS ORDERED: HEPARIN SODIUM,PORCINE/PF 5,000 UNIT/0.5 ML SYRINGE SQ STA (11:35)
--- NOTE | 2023-03-28 11:35 | P.GSHP ---
History of Present Illness H&P Date: 03/28/23 CHIEF COMPLAINT: Sigmoid diverticulitis HISTORY OF PRESENT ILLNESS: The patient is a 82-year-old male who presents with change in bowel habits including intermittent large bowel obstruction were seen in the past 6 months. He is reports lifelong problems with constipation in bowel habits. He reports intermittent gas bloat. He had attempted prior colonoscopy unsuccessful. Diagnostic workup consistent with severe diverticulosis with diverticulitis. He presents for surgical options, sigmoid c olectomy. PAST MEDICAL HISTORY: Please see list. PAST SURGICAL HISTORY: Please see list. MEDICATIONS: Please see list. ALLERGIES: Please see list. SOCIAL HISTORY: No illicit drug use FAMILY HISTORY: No reports of Crohn disease or ulcerative colitis. REVIEW OF ORGAN SYSTEMS: CONSTITUTIONAL: Denies any fever or chills. HEENT: Denies any trouble with vision or nosebleeds. No difficulty swallowing. LYMPHATIC: The patient denies any lumps and bumps around the neck. ENDOCRINE: Denies any thyroid disorders. Has blood sugar glucose intolerance. RESPIRATORY: Denies pneumonia. Denies any troubles with breathing or dyspnea on exertion. CARDIOVASCULAR: Denies any chest pain, palpitations, or recent heart attacks. GASTROINTESTINAL: Has chronic diverticulitis. GENITOURINARY: Has increased urinary frequency. MUSCULOSKELETAL: Has back pain, stiffness, joint arthritis. NEUROLOGIC: Denies any numbness or tingling along the distal extremities. No seizure disorders or headaches. PSYCHIATRIC: Denies depression or suidical ideation. HEMATOLOGIC: Denies any abnormal bleeding or bruising. PHYSICAL EXAM: VITAL SIGNS: Stable GENERAL: Well-developed pleasant in no acute distress. HEENT: No scleral icterus. Extraocular movements grossly intact. Moist buccal mucosa. NECK: Supple without lymphadenopathy. CHEST: Unlabored respirations. Equal bilateral excursions. CARDIOVASCULAR: Regular rate and rhythm. Distal 2+ pulses. ABDOMEN: Soft, nontender, nondistended. MUSCULOSKELETAL: No clubbing, cyanosis, or edema. NERUO: Cranial nerves 2-12 grossly intact. PSYCH: Alert and oriented to person place and time. ASSESSMENT: 1. Sigmoid diverticulosis with intermittent bowel obstruction PLAN: 1. Benefits and risks of surgical robotic sigmoid resection was reviewed in detail. Robotic-assisted approach was also described. 2. Enhanced colon recovery program. 3. DVT prophylaxis. 4. Antibiotic prophylaxis. 5. Inpatient hospitalization greater than 2 nights. 6. Recommend colonoscopy for extent of obstruction and evaluation of neoplasm. 7. 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 Tyrone ing hernia; repair of mesh laterx2. Fx Lt Clavicle surg. Rt rotator cuff surg. tyroen total knees, total left hip. Past Anesthesia/Blood Transfusion Reactions: No Reported Reaction Additional Past Anesthesia/Blood Transfusion Reaction / Comment(s): no hx blood transfusion Smoking Status: Former smoker - Past Family History Mother Family Medical History: No Reported History Father Family Medical History: Myocardial Infarction (CO) Medications and Allergies Home Medications Medication Instructions Recorded Confirmed Type Turmeric Root Extract [Turmeric] 500 mg PO DAILY 04/28/20 03/26/23 History Cyanocobalamin (Vitamin B-12) 1 tab PO DAILY 04/06/22 03/26/23 History [Vitamin B-12] Butalb/APAP/Caff 50-325-40Mg 1 tab PO Q4H PRN 11/12/22 03/26/23 History [Fioricet 50-325-40] Celecoxib [CeleBREX] 200 mg PO DAILY PRN 11/12/22 03/26/23 History Latanoprost [Latanoprost 0.005%] 1 drop BOTH EYES 11/12/22 03/26/23 History Omeprazole/Sodium Bicarbonate 1 each PO DAILY PRN 11/12/22 03/26/23 History [Zegerid 40 mg Capsule] Pyridoxine HCl (Vitamin B6) 100 mg PO DAILY 11/12/22 03/26/23 History [Vitamin B-6] Magnesium Oxide [Magnesium] 500 mg PO BID 03/26/23 03/26/23 History Multivit-Min/FA/Lycopen/Lutein 1 each PO DAILY 03/26/23 03/26/23 History [Centrum Silver Men Tablet] Sennosides-Docusate Sodium 2 tab PO HS 03/26/23 03/26/23 History [Senokot-S] Allergies Allergy/AdvReac Type Severity Reaction Status Date / Time No Known Allergies Allergy Verified 03/26/23 10:28 Surgical - Exam Vital Signs Temp Pulse Resp BP Pulse Ox 98 F 67 18 155/72 98 03/28/23 09:34 03/28/23 09:34 03/28/23 09:34 03/28/23 09:34 03/28/23 09:34 Results - Labs 03/28/23 10:27 Diabetes panel 03/28/23 Range/Units 10:27 Potassium 3.8 (3.5-5.1) mmol/L Pituitary panel 03/28/23 Range/Units 10:27 Potassium 3.8 (3.5-5.1) mmol/L Adrenal panel 03/28/23 Range/Units 10:27 Potassium 3.8 (3.5-5.1) mmol/L
[2023-03-28] MEDS ORDERED: SODIUM CHLORIDE 0.9% 2,000 ML IV ONE (11:37)
--- NOTE | 2023-03-28 11:41 | P.PCN ---
Date of Procedure: 03/28/23 Description of Procedure: PREOPERATIVE DIAGNOSIS: Diverticulosis with partial obstruction POSTOPERATIVE DIAGNOSIS: Diverticulosis with partial obstruction OPERATION: Colonoscopy to the cecum, ileocecal valve and appendiceal orifice. Colonoscopy with injection of Archana ink, 4 mL, sigmoid colon SURGEON: Yudelka Muro MD. ANESTHESIA: MAC. INDICATIONS: The patient is a 82-year-old male who presents with diverticulosis with partial obstruction. Benefits and risks were described and informed consent was obtained. DESCRIPTION OF PROCEDURE: The patient had undergone Sutab prep. The patient had been brought into the operating room and laid in the left lateral decubitus position. After adequate i ntravenous sedation, the rectum was examined with 2% lidocaine jelly. External hemorrhoids were encountered. The rectal tone was within normal limits. No lesions were palpated in the rectal vault. An Olympus colonoscope was advanced until the cecum, ileocecal valve and appendiceal orifice were clearly viewed. The prep was good. Severe sigmoid diverticulosis was encountered between 30 cm to 10 cm from the anal. Injection of Archana ink at 30 cm from the anal verge due to partial obstruction. No colonic polyps were found. No evidence of focal colitis was found. Retroflexion of the scope demonstrated grade 1 internal hemorrhoids without active bleeding or inflammation. The colon was desufflated. The patient had tolerated the procedure well. Withdrawal time was over 6 minutes. FINDINGS: Aronchick preparation quality scale 2 (1-5) Severe sigmoid diverticulosis was encountered between 30 cm to 10 cm from the anal. Internal hemorrhoids, grade 2 External prolapsed hemorrhoids, grade 2 No arteriovenous malformations. No adenomatous polyps. No focal colitis. Injection of Archana ink at 30 cm from the anal verge due to partial obstruction. RECOMMENDATIONS: Recommend admission for colonic resection due to partial obstruction Plan - Discharge Summary Discharge Rx Participant: No New Discharge Prescriptions: No Action Turmeric Root Extract [Turmeric] 500 mg PO DAILY Celecoxib [CeleBREX] 200 mg PO DAILY PRN PRN Reason: Pain Latanoprost [Latanoprost 0.005%] 1 drop BOTH EYES HS Pyridoxine HCl (Vitamin B6) [Vitamin B-6] 100 mg PO DAILY Sennosides-Docusate Sodium [Senokot-S] 2 tab PO HS Multivit-Min/FA/Lycopen/Lutein [Centrum Silver Men Tablet] 1 each PO DAILY Cyanocobalamin (Vitamin B-12) [Vitamin B-12] 1 tab PO DAILY Omeprazole/Sodium Bicarbonate [Zegerid 40 mg Capsule] 1 each PO DAILY PRN PRN Reason: reflux Butalb/APAP/Caff 50-325-40Mg [Fioricet 50-325-40] 1 tab PO Q4H PRN PRN Reason: Headache Magnesium Oxide [Magnesium] 500 mg PO BID Discharge Medication List Turmeric Root Extract [Turmeric] 500 mg PO DAILY 04/28/20 [History] Cyanocobalamin (Vitamin B-12) [Vitamin B-12] 1 tab PO DAILY 04/06/22 [History] Butalb/APAP/Caff 50-325-40Mg [Fioricet 50-325-40] 1 tab PO Q4H PRN 11/12/22 [History] Celecoxib [CeleBREX] 200 mg PO DAILY PRN 11/12/22 [History] Latanoprost [Latanoprost 0.005%] 1 drop BOTH EYES HS 11/12/22 [History] Omeprazole/Sodium Bicarbonate [Zegerid 40 mg Capsule] 1 each PO DAILY PRN 11/12/22 [History] Pyridoxine HCl (Vitamin B6) [Vitamin B-6] 100 mg PO DAILY 11/12/22 [History] Magnesium Oxide [Magnesium] 500 mg PO BID 03/26/23 [History] Multivit-Min/FA/Lycopen/Lutein [Centrum Silver Men Tablet] 1 each PO DAILY 03/26 [History] Sennosides-Docusate Sodium [Senokot-S] 2 tab PO HS 03/26/23 [History]
[2023-03-28 12:54] LABS: Basophils % (A) 1 %; Eosinophils # (A) 0.1 k/uL (0-0.7); Eosinophils % (A) 2 %; HCT 45.9 % (39.0-53.0); HGB 16.1 gm/dL (13.0-17.5); Lymphocytes % (A) 18 %; MCH 33.7 pg (25.0-35.0); MCV 96.2 fL (80.0-100.0); Mean Platelet Volume 8.1; Monocytes # (A) 0.4 k/uL (0-1.0); Monocytes % (A) 8 %; Neutrophils # (A) 3.7 k/uL (1.3-7.7); Neutrophils % (A) 69 %; Platelet Count 159 k/uL (150-450); RBC 4.77 m/uL (4.30-5.90); RDW 12.5 % (11.5-15.5); WBC 5.3 k/uL (3.8-10.6)
[2023-03-28] MEDS: NEOMYCIN 500 MG TAB PO SCH ×3 (13:00→23:10)
[2023-03-28] MEDS: metroNIDAZOLE 500 MG TAB PO SCH ×3 (13:00→23:09)
[2023-03-28 13:07] LABS: ALT 30 U/L (4-49); AST 37 U/L (17-59); African American GFR (CKD) >90 (>60 ml/min/1.73 sqM); Albumin 3.7 g/dL (3.5-5.0); Alkaline Phosphatase 88 U/L (38-126); Anion Gap 8 mmol/L; Blood Urea Nitrogen 17 mg/dL (9-20); Calcium 8.8 mg/dL (8.4-10.2); Carbon Dioxide 28 mmol/L (22-30); Chloride 101 mmol/L (98-107); Glucose 129 mg/dL (74-99); Non-African American GFR(CKD) 88 (>60 ml/min/1.73 sqM); Potassium 4.3 mmol/L (3.5-5.1); Sodium 137 mmol/L (137-145); Total Protein 6.2 g/dL (6.3-8.2)
[2023-03-28] MEDS: LACTATED RINGERS 1,000 ML IV SCH (17:23)
[2023-03-28] MEDS ORDERED: TEMAZEPAM 15 MG CAP PO ONE (21:00)
[2023-03-29] MEDS ORDERED: metroNIDAZOLE-NS PMX 500 MG in SALINE 1 100ML.BAG IVPB PRN (05:00)
[2023-03-29] MEDS ORDERED: ACETAMINOPHEN TAB 500 MG TAB PO PRN (07:00)
[2023-03-29] MEDS ORDERED: ALVIMOPAN 12 MG CAPSULE PO PRN (07:00)
[2023-03-29] MEDS: LACTATED RINGERS 1,000 ML IV SCH ×2 (09:03→10:19)
[2023-03-29 09:13] LABS: Glucose,Whole Blood 97 mg/dL (70-110)
[2023-03-29] MEDS ORDERED: ONDANSETRON 4 MG/2 ML VIAL IVP ONE (09:22)
[2023-03-29] MEDS ORDERED: DEXAMETHASONE SOD PHOSPHATE 4 MG/ML 1 ML VIAL IVP ONE (09:22)
[2023-03-29] MEDS ORDERED: MIDAZOLAM 2 MG/2 ML VIAL IVP ONE (09:34)
[2023-03-29] MEDS ORDERED: fentaNYL (PF) 50 MCG/ML 2 ML AMP IVP ONE (09:34)
[2023-03-29] MEDS ORDERED: HEPARIN SODIUM,PORCINE 5,000 UNIT/ML 1 ML VIAL SQ ONE (09:44)
--- NOTE | 2023-03-29 10:03 | P.PN ---
Subjective Progress Note Date: 03/29/23 CHIEF COMPLAINT: Diverticulitis HISTORY OF PRESENT ILLNESS: The patient is a 82-year-old male who presents with diverticulitis including intermittent bowel obstruction. No nausea and vomiting. He received abdominal block. ROS: No reports of nausea and vomiting. No fevers or chills. No new chest p ain. No productive sputum PHYSICAL EXAM: VITAL SIGNS: Reviewed CONSTITUTIONAL: Well developed and in no acute distress. EYES: Conjuctivae without sclera icterus. Extraocular movements grossly intact. HEAD, EARS, NOSE, THROAT: Moist buccal mucosa. Head is atraumatic, normocephalic. Hears conversational speech. No nasal drainage. RESPIRATORY: Non-labored respirations and equal bilateral excursions. CARDIOVASCULAR: Palpable 2+ radial pulses. ABDOMEN: No peritonitis. MUSCULOSKELETAL: No gross deformity of the lower extremities noted. No clubbing. No cyanosis. SKIN: Good skin turgor. Well perfused. NEUROLOGIC: Cranial nerves II through XII grossly intact. No focal or lateralizing signs. PSYCH: Appropriate affect. Alert and oriented to person, place and time. CLINICAL LABS: Reviewed. WBC normal. Creatinine normal. ASSESSMENT: 1. Diverticulitis. PLAN: 1. Benefits and risks of sigmoid colectomy described. Robotic assisted approach described. 2. Enhanced colon recovery program reviewed 3. Inpatient hospitalization described Objective - Vital Signs Vital signs: Vital Signs Temp 97.2 F L 03/29/23 09:04 Pulse 56 L 03/29/23 09:51 Resp 16 03/29/23 09:51 BP 113/56 03/29/23 09:51 Pulse Ox 97 03/29/23 09:51 FiO2 Intake & Output 03/28/23 03/29/23 03/29/23 18:59 06:59 18:59 Intake Total 2336 Balance 2336 Weight 76.7 kg Intake: IV 2100 Oral 236 Other: Voiding Method Toilet Toilet # Voids 1 3 # Bowel Movements 5 - Labs CBC & Chem 7: 03/28/23 12:40 03/28/23 12:40 Labs: Abnormal Lab Results - Last 24 Hours (Table) 03/28/23 Range/Units 12:40 Glucose 129 H (74-99) mg/dL Total Protein 6.2 L (6.3-8.2) g/dL
[2023-03-29] MEDS ORDERED: LIDOCAINE 2% INJ 20 MG/ML (2 ML VIAL) ONE (10:16)
[2023-03-29] MEDS ORDERED: PROPOFOL 10 MG/ML 20 ML VIAL IV ONE (10:16)
[2023-03-29] MEDS ORDERED: ROCURONIUM 10 MG/ML (5 ML VIAL) IV ONE (10:16)
[2023-03-29] MEDS ORDERED: NEOSTIGMINE 1 MG/ML 10 ML VIAL ONE (10:16)
[2023-03-29] MEDS ORDERED: SUCCINYLCHOLINE CHLORIDE 200 MG/10 ML VIAL IV ONE (10:16)
[2023-03-29] MEDS ORDERED: SODIUM CHLORIDE 0.9% (PF) 10 ML VIAL ONE (10:16)
[2023-03-29] MEDS ORDERED: ROPIVACAINE 5 MG/ML 30 ML VIAL ONE (10:16)
[2023-03-29] MEDS ORDERED: GLYCOPYRROLATE 0.2 MG/ML 2 ML VIAL ONE (10:16)
[2023-03-29] MEDS ORDERED: fentaNYL (PF) 50 MCG/ML 2 ML AMP ONE (10:16)
--- NOTE | 2023-03-29 10:17 | P.ANPRN ---
Procedure Note - Anesthesia - Nerve Block Performed Bilateral Erector Spinae Time Out Performed: Yes (:33) Date of Procedure: 03/29/23 Procedure Start Time: Procedure Stop Time: :39 Location of Patient: PreOp Indication: Acute Post-Operative Pain, Requested by Surgeon (Dr Muro) Sedation Type: Sedate with meaningful contact maintained Preparation: Sterile Prep Position: Prone Catheter: None Needle Types: Pajunk Needle Gauge: 21 Ultrasound used to visualize needle placement: Yes Ultrasound used to observe medication spread: Yes Injectate: 0.5% Ropivacaine (see comment for volume) (15cc +10cc PF Normal saline each side) Blood Aspirated: No Pain Paresthesia on Injection Noted: No Resistance on Injection: Normal Image Stored and Saved: Yes Events: Uneventful and Well Tolerated
[2023-03-29] MEDS ORDERED: BUPIVACAINE (PF) 0.25% 30 ML VIAL SQ ONE (11:02)
[2023-03-29] MEDS ORDERED: LACTATED RINGERS 1,000 ML IV ONE (13:22)
[2023-03-29] MEDS ORDERED: HYDROmorphone 0.5 MG/0.5 ML SYRINGE IVP ONE ×4 (14:30→15:33)
[2023-03-29] MEDS ORDERED: METOCLOPRAMIDE 5 MG/ML 2 ML VIAL IVP PRN (14:47)
[2023-03-29] MEDS ORDERED: ONDANSETRON 4 MG/2 ML VIAL IVP PRN (14:47)
[2023-03-29] MEDS ORDERED: BENZOCAINE/MENTHOL LOZENG 1 EACH LOZENGE MUCOUS MEM PRN (14:47)
[2023-03-29] MEDS ORDERED: PANTOPRAZOLE 40 MG TABLET PO PRN (14:48)
[2023-03-29] MEDS ORDERED: BUTALB/APAP/CAFF 50-325-40MG TAB PO PRN (14:48)
[2023-03-29] MEDS ORDERED: NALOXONE 0.4 MG/ML 1 ML VIAL IV PRN (14:49)
[2023-03-29] MEDS ORDERED: SODIUM BICARBONATE TAB 650 MG TAB PO PRN (14:55)
[2023-03-29] MEDS ORDERED: TAMSULOSIN 0.4 MG CAP.ER.24H PO STA (14:56)
--- NOTE | 2023-03-29 14:56 | P.OP ---
Date of Procedure: 03/29/23 Description of Procedure: SURGEON: DAVID WATSON MD PREOPERATIVE DIAGNOSES: 1. Sigmoid diverticulitis 2. Personal history of pulmonary embolism 3. Gastroesophageal reflux disease 4. Mitral regurgitation 5. Generalized osteoarthritis POSTOPERATIVE DIAGNOSES: 1. Sigmoid diverticulitis 2. Personal history of pulmonary embolism 3. Gastroesophageal reflux disease 4. Mitral regurgitation 5. Generalized osteoarthritis OPERATION: 1. Robotic-assisted daVinci Xi sigmoid colectomy with low anterior resection using 29 mm Ethicon powered stapler 2. Intraoperative colonoscopy used for sigmoidoscopy Anesthesia: GETA, local, regional Estimated Blood Loss (ml): 10 Pathology: 1. Sigmoid colon 2. EEA donuts 3. Proximal colotomy Condition: stable Disposition: floor COMPLICATIONS: None. Operative Findings: 1. Redundant sigmoid colon 2. Anastomosis with EEA stapler 29 mm 3. No tension or torsion along the anastomosis 4. Doughnuts thick and both sides and viable 5. Negative leak test with viable anastomosis. INDICATIONS: The patient is a 82-year-old male who presents with change in bowel habits, sigmoid diverticulosis with tortuous colon. Benefits and risks of surgical intervention was described in detail including infection, injury to the ureter, colostomy creation, possibility for additional surgery was discussed at length. Informed consent was obtained. All questions of the patient and family were answered. DESCRIPTION: Earlier the patient had undergone a bowel prep using the enhanced colon recovery program. The patient was transferred to the operating room and placed supine. After general induction, the abdomen was prepped and draped in standard sterile fashion. Ioban was placed along the abdomen to minimize any contamination of skin floor. A Portillo catheter was placed. After a timeout protocol was performed, attention was then brought to the left upper quadrant whereby a 0 degree 5 mm laparoscopic trocar entry was performed. The abdominal cavity was entered and insufflated to 15 mmHg pressure, which was tolerated well. Diagnostic laparoscopy confirmed moderately redundant sigmoid colon and active sigmoid volvulus. The small bowel was unremarkable. Next a robotic 12-mm trocar was placed along the right lateral abdominal wall 20 cm superior from the pelvis. Two 8 mm ports were placed along the upper abdomen. Ports were placed 10 cm apart from each other including 20 cm away from the target anatomy of the left pelvis. The 12-mm port was exchanged for an 8 mm robotic port at the left upper quadrant. The robot was docked along the left lateral abdomen. The patient was positioned in steep Trendelenburg position at 21-degrees. Using atraumatic graspers and vessel sealer, the robotic system was docked and primed as described. Instruments were interchanged by the community program assistant including hook cautery, needle personal driver, robotic stapler and vessel sealer. The robot stapler was prepared along the right lateral abdominal wall. The stapler 12-mm port was arranged along the right lateral abdominal wall. Next, attention was brought to identify the sigmoid colon. A previous tattoo dye was identified for proximal resection of the sigmoid colon. The sigmoid mesentery was mobilized using a vessel sealer whereby the descending colon was marked and tagged. Using multiple fires of the robot stapler 60 mm green load, the proximal sigmoid colon was divided. The mesentery of the sigmoid colon was mobilized towards the pelvic brim and sacral promontory using a vessel sealer. The sigmoid volvulus was reduced with viable colon. Next, the sigmoid colon was divided using the robotic stapler 60 mm black staple loads. The rest of the sigmoid colon mesentery was mobilized using vessel sealer. Additionally, the sigmoid colon was mobilized onto the colon to minimize injury to the ureters. I went to the foot of the bed to confirm sizers and placement of 29-mm Ethicon powered stapler. I re-scrubbed into the case. The robotic arms were temporarily undocked. A 29-mm anvil was placed with a 3-0 silk sutured at the tip of the anvil captain waiter. Then the anvil was placed via the left upper quadrant 12 mm port. All robotic arms were re-docked. I went back to the console. The staple line was opened using cautery. The anvil was entered into the proximal descending colon. The colotomy was closed using 60 mm green load. Next, the sharp tip of the anvil captain waiter was brought through the staple line. The anvil captain waiter was removed from the abdomen using empty clip appliers. I went to the foot of the bed to place the powered Ethicon 29 mm stapler via the rectum. The anvil and stapler were mated for 1 minute. The doughnuts were intact on both sides and thick. An intraoperative leak test was performed as I inserted the colonoscope to the anastomosis. Endoscopic images were obtained. Irrigation was placed in the pelvis and no air leaks were identified. Irrigation fluid was aspirated from the pelvis until dry. I went back to the console. All sponges and needles were removed from the abdominal cavity. The robot was undocked. I re-scrubbed into the case. Via the left upper quadrant port, the sigmoid colon was removed. All sponges were removed from the abdominal cavity. The left upper quadrant incision was widened to 3-cm. No contamination had occurred throughout the case. The fascial defect was oversewn using 0 Vicryl and a Fredo Cadena. Next all pneumoperitoneum was evacuated from the abdominal cavity. The 8-mm trocar sites were reapproximated using 4-0 Monocryl in an interrupted subcuticular fashion. Local anesthetic was infiltrated to all wounds for postop analgesia. All incisions were also cleansed with diluted hydrogen peroxide. A Optifoam surgical dressing was placed over the colon extraction site. Liquid glue was applied to the rest of the skin incisions. The patient had tolerated the procedure well. The patient was extubated successfully. The patient was transferred to the postanesthesia care unit in stable condition. Intraoperative findings were described in detail to the patient's family.
[2023-03-29] MEDS ORDERED: fentaNYL PCA 500 MCG/50 ML BAG IV PRN (15:00)
[2023-03-29] MEDS ORDERED: KETOROLAC 15 MG/ML 1 ML VIAL IVP ONE (15:22)
[2023-03-29] MEDS ORDERED: SODIUM CHLORIDE 0.9% 1,000 ML IV ONE (16:12)
[2023-03-29] MEDS: KETOROLAC 15 MG/ML 1 ML VIAL IVP SCH ×2 (16:49→23:44)
[2023-03-29] MEDS: SODIUM CHLORIDE 0.9% 1,000 ML IV SCH (16:56)
[2023-03-29 18:24] LABS: Basophils % (A) 0 %; Eosinophils % (A) 0 %; HCT 42.5 % (39.0-53.0); HGB 14.9 gm/dL (13.0-17.5); Lymphocytes # (A) 0.3 k/uL (1.0-4.8); Lymphocytes % (A) 4 %; MCH 33.6 pg (25.0-35.0); MCHC 35.1 g/dL (31.0-37.0); MCV 95.7 fL (80.0-100.0); Mean Platelet Volume 8.1; Monocytes # (A) 0.3 k/uL (0-1.0); Monocytes % (A) 3 %; Neutrophils # (A) 8.1 k/uL (1.3-7.7); Neutrophils % (A) 93 %; Platelet Count 148 k/uL (150-450); RBC 4.44 m/uL (4.30-5.90); RDW 12.9 % (11.5-15.5); WBC 8.8 k/uL (3.8-10.6)
[2023-03-29 20:17] LABS: African American GFR (CKD) >90 (>60 ml/min/1.73 sqM); Anion Gap 12 mmol/L; Blood Urea Nitrogen 15 mg/dL (9-20); Calcium 8.5 mg/dL (8.4-10.2); Carbon Dioxide 21 mmol/L (22-30); Chloride 104 mmol/L (98-107); Glucose 155 mg/dL (74-99); Non-African American GFR(CKD) 89 (>60 ml/min/1.73 sqM); Potassium 4.4 mmol/L (3.5-5.1); Sodium 137 mmol/L (137-145)
[2023-03-29] MEDS: FAMOTIDINE 20 MG/2 ML VIAL IV SCH (20:46)
[2023-03-29] MEDS: HEPARIN SODIUM,PORCINE/PF 5,000 UNIT/0.5 ML SYRINGE SQ SCH (20:47)
[2023-03-29] MEDS: LATANOPROST 0.005% OPHTH DROPS 2.5 ML BTL BOTH EYES SCH (20:47)
[2023-03-29] MEDS: MAGNESIUM OXIDE 400 MG TAB PO SCH (20:47)
[2023-03-30] MEDS ORDERED: SODIUM CHLORIDE 0.9% 1,000 ML IV ONE (02:18)
[2023-03-30] MEDS: metroNIDAZOLE-NS PMX 500 MG in SALINE 1 100ML.BAG IVPB SCH ×3 (02:25→17:51)
[2023-03-30] MEDS: SODIUM CHLORIDE 0.9% 1,000 ML IV SCH ×2 (02:27→20:41)
[2023-03-30] MEDS: LACTATED RINGERS 1,000 ML IV SCH (05:16)
[2023-03-30] MEDS: KETOROLAC 15 MG/ML 1 ML VIAL IVP SCH ×3 (06:10→17:03)
--- NOTE | 2023-03-30 07:00 | P.PN ---
Progress Note - Text Progress Note Date: 03/30/23 The patient is postoperative day 1 from laparoscopic sigmoid colectomy. Patient has had any flatus. He has some mild incisional pain. On exam vitals are stable. Abdomen soft there is minimal incisional tenderness. Patient has had no significant bowel function. 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 Scooby cedillo will be observed. We will advance his diet as tolerated. Once his bowel function returns.
[2023-03-30] MEDS: CYCLOBENZAPRINE 10 MG TAB PO SCH ×3 (08:43→20:33)
[2023-03-30] MEDS: FAMOTIDINE 20 MG/2 ML VIAL IV SCH ×2 (08:43→20:35)
[2023-03-30] MEDS: ALVIMOPAN 12 MG CAPSULE PO SCH ×2 (08:43→20:34)
[2023-03-30] MEDS: MAGNESIUM OXIDE 400 MG TAB PO SCH ×2 (08:43→20:28)
[2023-03-30] MEDS: TAMSULOSIN 0.4 MG CAP.ER.24H PO SCH (08:43)
[2023-03-30] MEDS: HEPARIN SODIUM,PORCINE/PF 5,000 UNIT/0.5 ML SYRINGE SQ SCH ×2 (08:43→20:33)
[2023-03-30] MEDS: LATANOPROST 0.005% OPHTH DROPS 2.5 ML BTL BOTH EYES SCH (20:35)
[2023-03-31] MEDS: KETOROLAC 15 MG/ML 1 ML VIAL IVP SCH ×4 (01:20→16:53)
[2023-03-31] MEDS: metroNIDAZOLE-NS PMX 500 MG in SALINE 1 100ML.BAG IVPB SCH ×3 (01:22→16:50)
[2023-03-31] MEDS: SODIUM CHLORIDE 0.9% 1,000 ML IV SCH ×2 (05:52→20:56)
[2023-03-31] MEDS: LACTATED RINGERS 1,000 ML IV SCH ×2 (05:53→20:59)
[2023-03-31] MEDS: ALVIMOPAN 12 MG CAPSULE PO SCH ×2 (07:17→20:57)
[2023-03-31] MEDS: CYCLOBENZAPRINE 10 MG TAB PO SCH ×3 (07:17→20:56)
[2023-03-31] MEDS: HEPARIN SODIUM,PORCINE/PF 5,000 UNIT/0.5 ML SYRINGE SQ SCH ×2 (07:17→20:56)
[2023-03-31] MEDS: MAGNESIUM OXIDE 400 MG TAB PO SCH ×2 (07:17→20:58)
[2023-03-31] MEDS: TAMSULOSIN 0.4 MG CAP.ER.24H PO SCH (07:17)
[2023-03-31] MEDS ORDERED: HYDROcodone/APAP 5-325MG 1 EACH TAB PO PRN (08:58)
--- NOTE | 2023-03-31 09:32 | P.PN ---
Progress Note - Text Progress Note Date: 03/31/23 The patient's resting comfortably in his bed. He does report pain when he tries to move. He's had some minimal flatus. On exam vital signs appear stable. Abdomen soft. Incision sites are clean dry tach. Status post laparoscopic colectomy for diverticulitis. Patient will continue receive supportive care. 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 He'll started oral pain medication. We anticipate discharge home tomorrow.
[2023-03-31] MEDS: FAMOTIDINE 20 MG/2 ML VIAL IV SCH ×2 (09:43→20:57)
[2023-03-31] MEDS: LATANOPROST 0.005% OPHTH DROPS 2.5 ML BTL BOTH EYES SCH (20:58)
[2023-04-01] MEDS: metroNIDAZOLE-NS PMX 500 MG in SALINE 1 100ML.BAG IVPB SCH ×2 (02:51→09:53)
[2023-04-01] MEDS: HEPARIN SODIUM,PORCINE/PF 5,000 UNIT/0.5 ML SYRINGE SQ SCH (07:50)
[2023-04-01] MEDS: CYCLOBENZAPRINE 10 MG TAB PO SCH (07:51)
[2023-04-01] MEDS: ALVIMOPAN 12 MG CAPSULE PO SCH (07:51)
[2023-04-01] MEDS: TAMSULOSIN 0.4 MG CAP.ER.24H PO SCH (07:51)
[2023-04-01] MEDS: MAGNESIUM OXIDE 400 MG TAB PO SCH (07:51)
[2023-04-01 08:13] VITALS: BP 125/69; PULSE 60; RESP 18; TEMP 97.7
[2023-04-01] MEDS: FAMOTIDINE 20 MG/2 ML VIAL IV SCH (08:31)
--- NOTE | 2023-04-01 13:42 | P.DS ---
Providers Date of admission: 03/29/23 14:47 Expected date of discharge: 04/01/23 Attending physician: Yudelka Muro Primary care physician: Sony Brennan [facility] Course: POSTOPERATIVE DIAGNOSES: 1. Sigmoid diverticulitis 2. Personal history of pulmonary embolism 3. Gastroesophageal reflux disease 4. Mitral regurgitation 5. Generalized osteoarthritis COURSE: The patient is a 82-year-old male who presented pre-existing inter mittent large bowel obstruction due to severe sigmoid diverticulosis. He underwent sigmoid colectomy. Postoperatively, pain was managed with Toradol, PA-C, Norquist. Prior to discharge, he is passing moderate flatus. Nonnarcotic pain management was reviewed including diet. Prior to discharge, patient was stable. All questions were addressed. Follow-up telehealth weekly. CHIEF COMPLAINT: Diverticulitis HISTORY OF PRESENT ILLNESS: The patient is a 82-year-old male with diverticulitis. He is passing flatus. ROS: No reports of nausea and vomiting. No bowel movements. No fevers or ch ills. No new chest pain. No productive sputum PHYSICAL EXAM: VITAL SIGNS: Reviewed CONSTITUTIONAL: Well developed and in no acute distress. EYES: Conjuctivae without sclera icterus. Extraocular movements grossly intact. HEAD, EARS, NOSE, THROAT: Moist buccal mucosa. Head is atraumatic, normocephalic. Hears conversational speech. No nasal drainage. RESPIRATORY: Non-labored respirations and equal bilateral excursions. CARDIOVASCULAR: Palpable 2+ radial pulses. ABDOMEN: Dressing intact. Binder re-adjusted with ice pack placed. MUSCULOSKELETAL: No gross deformity of the lower extremities noted. No clubbing. No cyanosis. SKIN: Good skin turgor. Well perfused. NEUROLOGIC: Cranial nerves II through XII grossly intact. No focal or lateralizing signs. PSYCH: Appropriate affect. Alert and oriented to person, place and time. CLINICAL LABS: Reviewed. ASSESSMENT: 1. Diverticulitis PLAN: 1. Stable for discharge Vital Signs Temp 97.7 F 04/01/23 06:45 Pulse 60 04/01/23 06:45 Resp 18 04/01/23 06:45 BP 125/69 04/01/23 06:45 Pulse Ox 94 L 04/01/23 06:45 FiO2 Intake & Output 03/31/23 04/01/23 04/01/23 18:59 06:59 18:59 Output Total 850 900 800 Balance -850 900 -800 Output: Urine 850 900 800 Other: Voiding Method Toilet Urinal Procedures: OPERATION: 1. Robotic-assisted daVinci Xi sigmoid colectomy with low anterior resection using 29 mm Ethicon powered stapler 2. Intraoperative colonoscopy used for sigmoidoscopy Anesthesia: GETA, local, regional Estimated Blood Loss (ml): 10 Pathology: 1. Sigmoid colon 2. EEA donuts 3. Proximal colotomy Condition: stable Disposition: floor COMPLICATIONS: None. Operative Findings: 1. Redundant sigmoid colon 2. Anastomosis with EEA stapler 29 mm 3. No tension or torsion along the anastomosis 4. Doughnuts thick and both sides and viable 5. Negative leak test with viable anastomosis. Patient Condition at Discharge: Stable Plan - Discharge Summary Discharge Rx Participant: No New Discharge Prescriptions: New Cyclobenzaprine [Flexeril] 10 mg PO TID #30 tab Simethicone [Gas-X] 125 mg PO AC-TID PRN #20 capsule PRN Reason: Pain Acetaminophen Tab [Tylenol Tab] 1,000 mg PO Q6HR PRN #30 tablet PRN Reason: Pain Continue Turmeric Root Extract [Turmeric] 500 mg PO DAILY Celecoxib [CeleBREX] 200 mg PO DAILY PRN PRN Reason: Pain Latanoprost [Latanoprost 0.005%] 1 drop BOTH EYES HS Pyridoxine HCl (Vitamin B6) [Vitamin B-6] 100 mg PO DAILY Sennosides-Docusate Sodium [Senokot-S] 2 tab PO HS Multivit-Min/FA/Lycopen/Lutein [Centrum Silver Men Tablet] 1 each PO DAILY Cyanocobalamin (Vitamin B-12) [Vitamin B-12] 1 tab PO DAILY Omeprazole/Sodium Bicarbonate [Zegerid 40 mg Capsule] 1 each PO DAILY PRN PRN Reason: reflux Butalb/APAP/Caff 50-325-40Mg [Fioricet 50-325-40] 1 tab PO Q4H PRN PRN Reason: Headache Magnesium Oxide [Magnesium] 500 mg PO BID Discharge Medication List Turmeric Root Extract [Turmeric] 500 mg PO DAILY 04/28/20 [History] Cyanocobalamin (Vitamin B-12) [Vitamin B-12] 1 tab PO DAILY 04/06/22 [History] Butalb/APAP/Caff 50-325-40Mg [Fioricet 50-325-40] 1 tab PO Q4H PRN 11/12/22 [History] Celecoxib [CeleBREX] 200 mg PO DAILY PRN 11/12/22 [History] Latanoprost [Latanoprost 0.005%] 1 drop BOTH EYES HS 11/12/22 [History] Omeprazole/Sodium Bicarbonate [Zegerid 40 mg Capsule] 1 each PO DAILY PRN 11/12/22 [History] Pyridoxine HCl (Vitamin B6) [Vitamin B-6] 100 mg PO DAILY 11/12/22 [History] Magnesium Oxide [Magnesium] 500 mg PO BID 03/26/23 [History] Multivit-Min/FA/Lycopen/Lutein [Centrum Silver Men Tablet] 1 each PO DAILY 03/26/23 [History] Sennosides-Docusate Sodium [Senokot-S] 2 tab PO HS 03/26/23 [History] Acetaminophen Tab [Tylenol Tab] 1,000 mg PO Q6HR PRN #30 tablet 03/30/23 [Rx] Cyclobenzaprine [Flexeril] 10 mg PO TID #30 tab 03/30/23 [Rx] Simethicone [Gas-X] 125 mg PO AC-TID PRN #20 capsule 03/30/23 [Rx] Follow up Appointment(s)/Referral(s): Yudelka Muro MD [STAFF PHYSICIAN] - 04/02/23 (Telehealth) Patient Instructions/Handouts: *Surgery [facility] - Managing Your Pain After Surgery Without Opioids, Colectomy Diet (DC) Activity/Diet/Wound Care/Special Instructions: EXPECT BOWEL MOVEMENT WITH BLOOD FOR 1 WEEK TAKE LAXATIVE FOR CONSTIPATION AFTER 4 DAYS, 04/02/23 Wear abdominal binder for comfort. No lifting over 4 pounds in 4 weeks April 28February shower. No bath tub soaks for two weeks until April 12 Avoid steak, tough meats and seeds such as raspberry seeds. See diverticulitis, low fiber, colectomy diet Use Tylenol and ibuprofen scheduled for the next 24-48 hours for best pain relief. Use ice along incisions for today to prevent swelling. Discharge Disposition: HOME SELF-CARE
[2023-04-01] MEDS: SODIUM CHLORIDE 0.9% 1,000 ML IV SCH (14:23)
== END 2023-04-01 15:28 | disposition home or self-care (01) | DRG 329 ==
LOC: ORWHC2ENDO 09:07 → 4SSUR 13:24 → ORWHC2ENDO 03-29 14:47 → 4SSUR 03-29 14:47 → UNDOADMOB 03-29 18:50 → ORWHC2ENDO 03-29 18:50 → 4SSUR 03-29 18:50
PROVIDERS: ADMIT Surgery Plastic and Reconstructive Surgery; ATTEND Surgery Plastic and Reconstructive Surgery
PROC: 8E0W4CZ Robotic Assisted Procedure of Trunk Region, Percutaneous Endoscopic Approach (ICD-10-PCS; 2023-03-29)
PROC: 0DTN4ZZ Resection of Sigmoid Colon, Percutaneous Endoscopic Approach (ICD-10-PCS; principal; 2023-03-29 09:20)
DX: K57.32 Diverticulitis of large intestine without perforation or abscess without bleeding (principal); K56.2 Volvulus; K56.699 Other intestinal obstruction unspecified as to partial versus complete obstruction; Q43.8 Other specified congenital malformations of intestine; I08.3 Combined rheumatic disorders of mitral, aortic and tricuspid valves; K21.9 Gastro-esophageal reflux disease without esophagitis; M15.9 Polyosteoarthritis, unspecified; K59.09 Other constipation; Z96.653 Presence of artificial knee joint, bilateral; Z96.642 Presence of left artificial hip joint; Z87.891 Personal history of nicotine dependence; Z86.711 Personal history of pulmonary embolism; Z79.899 Other long term (current) drug therapy; Z86.718 Personal history of other venous thrombosis and embolism
CPT/HCPCS: 45381; 64999; 80048; 80053; 84132; 85025; 86850; 86900; 86901

== ENCOUNTER 2023-08-30 15:44 | Emergency (ER) | payer MEDICARE, OTHER ==
--- NOTE | 2023-08-30 17:21 | XR ---
EXAMINATION TYPE: XR KUB DATE OF EXAM: 08/30/2023 5:01 PM CLINICAL INDICATION:Male, 82 years old with history of constipation; [facility] COMPARISON: None. TECHNIQUE: Upright views of the abdomen and pelvis. FINDINGS: Possible mild subsegmental atelectasis in the left lung base. The heart is not grossly enla rged. Mild stool and gas throughout the colon. Possible anastomotic sutures suggested in the left pel vis. Scattered gas throughout small bowel without significant distention seen. No evidence of pneumop eritoneum or organomegaly. No pathologic calcifications can be seen. Liev-ry-ioqyqfed degenerative changes of the spine with apex right scoliosis in the upper lumbar marivel on. Moderate to severe right hip osteoarthropathy. Left hip total hip arthroplasty, appears grossly i ntact. IMPRESSION: Nonspecific, likely nonobstructive bowel gas pattern. No free air detected. If clinical concern persi sts, consider follow-up radiographs and/or CT.
--- NOTE | 2023-08-30 17:34 | ED ---
General Adult HPI - General Chief complaint: Abdominal Pain Stated complaint: Constipation Time Seen by Provider: 08/30/23 16:10 Source: patient, RN notes reviewed Mode of arrival: ambulatory Limitations: no limitations - History of Present Illness Initial comments: 82-year-old male presents to the emergency department chief complaint of constipation. Patient states that this has been going on since Saturday. He has tried milk of magnesia. He states that he had a small bowel movement today. He does report that he has been passing gas. He reports that he went to see Dr. Muro on Saturday. He is scheduled for a colonoscopy at the end of the month. Denies fever, chills. Denies abdominal pain. - Related Data Home Medications Medication Instructions Recorded Confirmed Butalb/APAP/Caff 50-325-40Mg 1 tab PO QID PRN 11/12/22 08/30/23 [Fioricet 50-325-40] Latanoprost [Latanoprost 0.005%] 1 drop BOTH EYES Q48H 11/12/22 08/30/23 Previous Rx's Medication Instructions Recorded polyethylene glycoL 3350 [Miralax] 17 gm PO DAILY #527 gm 08/30/23 Allergies Allergy/AdvReac Type Severity Reaction Status Date / Time No Known Allergies Allergy Verified 08/30/23 16:58 Review of Systems ROS Statement: Those systems with pertinent positive or pertinent negative responses have been documented in the HPI. ROS Other: All systems not noted in ROS Statement are negative. 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 Tyrone ing hernia; repair of mesh laterx2. Fx Lt Clavicle surg. Rt rotator cuff surg. tyrone total knees, total left hip. Past Anesthesia/Blood Transfusion Reactions: No Reported Reaction Additional Past Anesthesia/Blood Transfusion Reaction / Comment(s): no hx blood transfusion Past Psychological History: No Psychological Hx Reported Smoking Status: Former smoker Past Alcohol Use History: None Reported Past Drug Use History: None Reported - Past Family History Mother Family Medical History: No Reported History Father Family Medical History: Myocardial Infarction ([place]) General Exam Limitations: no limitations General appearance: alert, in no apparent distress Head exam: Present: atraumatic, normocephalic, normal inspection Eye exam: Present: normal appearance, PERRL, EOMI. Absent: scleral icterus, conjunctival injection, periorbital swelling ENT exam: Present: normal exam, mucous membranes moist Neck exam: Present: normal inspection. Absent: tenderness, meningismus, lymphadenopathy Respiratory exam: Present: normal lung sounds bilaterally. Absent: respiratory distress, wheezes, rales, rhonchi, stridor Cardiovascular Exam: Present: regular rate, normal rhythm, normal heart sounds. Absent: systolic murmur, diastolic murmur, rubs, gallop, clicks GI/Abdominal exam: Present: soft, normal bowel sounds. Absent: distended, tenderness, guarding, rebound, rigid Rectal exam: Present: normal inspection, normal rectal tone Extremities exam: Present: normal inspection, full ROM, normal capillary refill. Absent: tenderness, pedal edema, joint swelling, calf tenderness Back exam: Present: normal inspection Neurological exam: Present: alert, oriented X3 Psychiatric exam: Present: normal affect, normal mood Skin exam: Present: warm, dry, intact, normal color. Absent: rash Course Vital Signs 08/30/23 08/30/23 08/30/23 15:57 18:03 20:34 Temperature 99.2 F 98 F Pulse Rate 94 63 60 Respiratory 18 18 17 Rate Blood Pressure 118/79 118/70 110/68 O2 Sat by Pulse 96 96 99 Oximetry Medical Decision Making - Medical Decision Making Was pt. sent in by a medical professional or institution (, PA, CREDIT VERIFIER, urgent care, hospital, or long-term...) When possible be specific @ -No Did you speak to anyone other than the patient for history (EMS, parent, family, police, friend...)? What history was obtained from this source @ -No Did you review nursing and triage notes (agree or disagree)? Why? @ -I reviewed and agree with nursing and triage notes Were old charts reviewed (outside hosp., previous admission, EMS record, old EKG, old radiological studies, urgent care reports/EKG's, long-term records)? Report findings @ -No old charts were reviewed Differential Diagnosis (chest pain, altered mental status, abdominal pain women, abdominal pain men, vaginal bleeding, weakness, fever, dyspnea, syncope, headache, dizziness, GI bleed, back pain, seizure, CVA, palpatations, mental health, musculoskeletal)? @ -Differential Abdominal Pain Men: Appendicitis, cholecystitis, diverticulosis, ischemic bowel, pancreatitis, hepatitis, UTI, gastroenteritis, AAA, incarcerated hernia, bowel obstruction, constipation, inflammatory bowel, hepatitis, peptic ulcer disease, splenic infarction, perforated viscus, testicular torsion, this is not meant to be an all-inclusive list EKG interpreted by me (3pts min.). @ -none X-rays interpreted by me (1pt min.). @ -None done CT interpreted by me (1pt min.). @ -None done U/S interpreted by me (1pt. min.). @ -None done What testing was considered but not performed or refused? (CT, X-rays, U/S, labs)? Why? @ -None What meds were considered but not given or refused? Why? @ -None Did you discuss the management of the patient with other professionals (professionals i.e. , PA, CREDIT VERIFIER, lab, RT, psych nurse, social insurance administrator, industrial cleaner, teacher, revenue officer, director of casework)? Give summary @ -Case discussed with surgery, Dr. Muro who recommends CT scan Was smoking cessation discussed for >3mins.? @ -No Was critical care preformed (if so, how long)? @ -No Were there social determinants of health that impacted care today? How? (Homelessness, low income, unemployed, alcoholism, drug addiction, transportation, low edu. Level, literacy, decrease access to med. care, longterm, rehab)? @ -No Was there de-escalation of care discussed even if they declined (Discuss DNR or withdrawal of care, Hospice)? DNR status @ -No What co-morbidities impacted this encounter? (DM, HTN, Smoking, COPD, CAD, Cancer, CVA, ARF, Chemo, Hep., AIDS, mental health diagnosis, sleep apnea, morbid obesity)? @ -None Was patient admitted / discharged? Hospital course, mention meds given and route, prescriptions, significant lab abnormalities, going to OR and other pertinent info. @ -discharged. Patient presented to the emergency department for chief complaint of constipation.KUB shows nonspecific likely nonobstructive bowel gas pattern; CT abdomen and pelvis shows no evidence of acute abdominal process, moderate stool in the right colon. Laboratory studies obtained CBC shows WBC 8.8, hemoglobin 16.7; CMP shows sodium 137, potassium 4.2, creatinine 0.75. Patient advised on findings and outpatient follow up with Dr. Muro. Patient stable at time of discharge. Case discussed with Dr. Roma HERNÁNDEZ Undiagnosed new problem with uncertain prognosis? @ -No Drug Therapy requiring intensive monitoring for toxicity (Heparin, Nitro, Insulin, Cardizem)? @ -No Were any procedures done? @ -No Diagnosis/symptom? @ -constipation Acute, or Chronic, or Acute on Chronic? @ -acute Uncomplicated (without systemic symptoms) or Complicated (systemic symptoms)? @ -uncomplicated Side effects of treatment? @ -No Exacerbation, Progression, or Severe Exacerbation? @ -No Poses a threat to life or bodily function? How? (Chest pain, [place], [place], pneumonia, PE, COPD, DKA, ARF, appy, cholecystitis, CVA, Diverticulitis, Homicidal, Suicidal, threat to staff... and all critical care pts) @ -No - Lab Data Result diagrams: 08/30/23 18:21 08/30/23 18:21 Lab Results 08/30/23 08/30/23 Range/Units 18:21 18:21 WBC 8.8 (3.8-10.6) k/uL RBC 5.04 (4.30-5.90) m/uL Hgb 16.7 (13.0-17.5) gm/dL Hct 48.3 (39.0-53.0) % MCV 95.7 (80.0-100.0) fL MCH 33.2 (25.0-35.0) pg MCHC 34.7 (31.0-37.0) g/dL RDW 12.3 (11.5-15.5) % Plt Count 158 (150-450) k/uL MPV 7.3 Neutrophils % 75 % Lymphocytes % 15 % Monocytes % 7 % Eosinophils % 2 % Basophils % 0 % Neutrophils # 6.6 (1.3-7.7) k/uL Lymphocytes # 1.3 (1.0-4.8) k/uL Monocytes # 0.6 (0-1.0) k/uL Eosinophils # 0.2 (0-0.7) k/uL Basophils # 0.0 (0-0.2) k/uL Sodium 137 (137-145) mmol/L Potassium 4.2 (3.5-5.1) mmol/L Chloride 105 (98-107) mmol/L Carbon Dioxide 24 (22-30) mmol/L Anion Gap 8 mmol/L BUN 26 H (9-20) mg/dL Creatinine 0.75 (0.66-1.25) mg/dL Est GFR (CKD-EPI)AfAm >90 (>60 ml/min/1.73 sqM) Est GFR (CKD-EPI)NonAf 87 (>60 ml/min/1.73 sqM) Glucose 85 (74-99) mg/dL Calcium 9.8 (8.4-10.2) mg/dL Total Bilirubin 1.1 (0.2-1.3) mg/dL AST 37 (17-59) U/L ALT 36 (4-49) U/L Alkaline Phosphatase 99 (38-126) U/L Total Protein 6.9 (6.3-8.2) g/dL Albumin 4.1 (3.5-5.0) g/dL Disposition Clinical Impression: Constipation Disposition: HOME SELF-CARE Condition: Stable Additional Instructions: Please utilize Miralax. Please follow up with Dr. Muro. Return to the emergency department for new or worsening symptoms. Prescriptions: polyethylene glycoL 3350 [Miralax] 17 gm PO DAILY #527 gm Is patient prescribed a controlled substance at d/c from ED?: No Referrals: Sony Brennan MD [Primary Care Provider] - 1-2 days
[2023-08-30 18:11] VITALS: TEMP 98
[2023-08-30 18:28] LABS: Basophils % (A) 0 %; Eosinophils # (A) 0.2 k/uL (0-0.7); Eosinophils % (A) 2 %; HCT 48.3 % (39.0-53.0); HGB 16.7 gm/dL (13.0-17.5); Lymphocytes # (A) 1.3 k/uL (1.0-4.8); Lymphocytes % (A) 15 %; MCH 33.2 pg (25.0-35.0); MCHC 34.7 g/dL (31.0-37.0); MCV 95.7 fL (80.0-100.0); Mean Platelet Volume 7.3; Monocytes # (A) 0.6 k/uL (0-1.0); Monocytes % (A) 7 %; Neutrophils # (A) 6.6 k/uL (1.3-7.7); Neutrophils % (A) 75 %; Platelet Count 158 k/uL (150-450); RBC 5.04 m/uL (4.30-5.90); RDW 12.3 % (11.5-15.5); WBC 8.8 k/uL (3.8-10.6)
[2023-08-30 19:07] LABS: ALT 36 U/L (4-49); AST 37 U/L (17-59); African American GFR (CKD) >90 (>60 ml/min/1.73 sqM); Albumin 4.1 g/dL (3.5-5.0); Alkaline Phosphatase 99 U/L (38-126); Anion Gap 8 mmol/L; Blood Urea Nitrogen 26 mg/dL (9-20); Calcium 9.8 mg/dL (8.4-10.2); Carbon Dioxide 24 mmol/L (22-30); Chloride 105 mmol/L (98-107); Glucose 85 mg/dL (74-99); Non-African American GFR(CKD) 87 (>60 ml/min/1.73 sqM); Potassium 4.2 mmol/L (3.5-5.1); Sodium 137 mmol/L (137-145); Total Bilirubin 1.1 mg/dL (0.2-1.3); Total Protein 6.9 g/dL (6.3-8.2)
--- NOTE | 2023-08-30 19:50 | CT ---
EXAMINATION TYPE: CT abdomen pelvis w con CT DLP: 877.7 mGycm, Automated exposure control for dose reduction was used. DATE OF EXAM: 08/30/2023 7:27 PM COMPARISON: CT abdomen pelvis most recent from CT chest 12/13/2020 CLINICAL INDICATION:Male, 82 years old with history of abd pain; abdominal pain and constipation TECHNIQUE: Axial CT of the ;CT abdomen pelvis w con;Sagittal and coronal reformats were created on a separate workstation. Contrast used:100 cc mL of Isovue 300 with IV Contrast, (none if empty) Oral contrast used: without Oral Contrast (none if empty) FINDINGS: LOWER CHEST: Left lower lobe 8 mm pulmonary nodule. There is moderate to severe calcifications of the aortic valve. ABDOMEN LIVER: Unremarkable GALLBLADDER AND BILE DUCTS: Unremarkable. PANCREAS: Unremarkable. SPLEEN: Unremarkable. ADRENAL GLANDS: Unremarkable. KIDNEYS AND URETERS: No evidence of hydronephrosis or renal calculus. The ureters are unremarkable. P elvic renal cysts are seen bilaterally.. PELVIS BLADDER: Unremarkable REPRODUCTIVE: Unremarkable. ABDOMEN & PELVIS STOMACH AND BOWEL: No evidence of bowel obstruction. Postsurgical changes to the sigmoid colon with s uture identified. Moderate amount stool in the right colon. PERITONEUM/RETROPERITONEUM: No evidence of pneumoperitoneum or free fluid. VASCULATURE: Mild atherosclerotic calcifications are present throughout the abdominal aorta and its b ranches. No evidence of aortic aneurysm. MUSCULOSKELETAL: No acute osseous abnormalities. Moderate disc degeneration changes are present throu ghout the thoracolumbar spine., left hip arthroplasty hardware appears intact. LYMPH NODES: No gross evidence for lymphadenopathy. SOFT TISSUE/ABDOMINAL WALL: Fat-containing inguinal hernias bilaterally. Fat-containing umbilical hernia. IMPRESSION: 1. No evidence for acute abdominal process. There is a moderate amount of stool predominantly in the right colon. 2. Moderate to severe calcifications of the aortic valve. 3. Fat-containing umbilical and bilateral inguinal hernias. 4. Left lower lobe 8 mm pulmonary nodule. Further evaluation or short-term follow-up in [address] chest is recommended to ensure stability versus .
[2023-08-30 20:37] VITALS: BP 110/68; PULSE 60; RESP 17
== END 2023-08-30 20:36 | disposition home or self-care (01) ==
LOC: EC 15:44
DX: K59.00 Constipation, unspecified (principal); Z87.891 Personal history of nicotine dependence
CPT/HCPCS: 36415; 80053; 85025; 74018; 74177; 99284; Q9967